=== PATIENT | female | born 1940 | race Caucasian/White ===

== ENCOUNTER 2020-09-29 01:08 | Emergency (ER) | payer MEDICARE ==
[2020-09-29 01:14] VITALS: TEMP 97.5
--- NOTE | 2020-09-29 01:18 | ED ---
Chest Pain HPI - General Chief Complaint: Chest Pain Stated Complaint: chest/arm pain Time Seen by Provider: 09/29/20 01:10 Source: patient, EMS Mode of arrival: EMS Limitations: no limitations - History of Present Illness Initial Comments: Patient is a 80-year-old female presents emergency department with reported left arm pain. Patient states the pain started approximately 10 days ago. She describes it as a throbbing sensation which radiates from the hand all the way up to her neck. Patient denies any provocative factors. States that it hurts worse at night when she goes to bed. Denies any numbness or tingling in her fingers. No paralysis. Patient denies neck stiffness. No history of DVT. Denies any fevers or chills. No overlying skin changes. The pain does not extend into her chest. 10 days ago she did call EMS who came to the house and did an EKG. She refused transfer at that time. States that she decided to come in to the emergency department tonight because the pain kept her from sleeping. Denies any associated nausea or vomiting. No pain into her back. Denies any pain into her abdomen or lower extremities. No other alleviating, precipitating or modifying factors - Related Data Home Medications Medication Instructions Recorded Confirmed Baclofen [Lioresal] 10 mg PO TID 06/17/14 06/17/14 Ciprofloxacin HCl [Cipro] 500 mg PO Q12HR 06/17/14 06/17/14 Ibuprofen [Motrin] 600 mg PO Q8HR PRN 06/17/14 06/17/14 Tamsulosin [Flomax] 0.4 mg PO DAILY 06/17/14 06/17/14 Allergies Allergy/AdvReac Type Severity Reaction Status Date / Time Penicillins Allergy Swelling Verified 06/17/14 07:33 Review of Systems ROS Statement: Those systems with pertinent positive or pertinent negative responses have been documented in the HPI. ROS Other: All systems not noted in ROS Statement are negative. EKG Findings - EKG Comments: EKG Findings:: EKG done signs normal sinus rhythm with a ventricular rate of 83. IA interval 134. QRS 72. QTC of 392. No acute ST segment elevations or depressions Past Medical History Additional Past Medical History / Comment(s): kidney stones History of Any Multi-Drug Resistant Organisms: None Reported Past Surgical History: Appendectomy, Orthopedic Surgery Additional Past Surgical History / Comment(s): Lt leg fusion Past Psychological History: No Psychological Hx Reported Smoking Status: Never smoker Past Alcohol Use History: Occasional Past Drug Use History: None Reported General Exam Limitations: no limitations Course Vital Signs 09/29/20 09/29/20 09/29/20 01:11 02:16 04:26 Temperature 97.5 F L Pulse Rate 95 90 80 Respiratory 18 16 17 Rate Blood Pressure 132/66 147/80 157/80 O2 Sat by Pulse 99 100 97 Oximetry Chest Pain MDM - MDM Upon arrival patient is placed into room 20. A thorough history and physical exam was performed. 12-lead EKG was performed. Laboratory studies were conducted. Patient went for a chest x-ray and a CT of her brain and cervical spine. Patient was given a muscle relaxer. She is reevaluated and reports that she still has some throbbing sensation to her left arm. I did recommend admission for cardiology consultation and possible orthopedic evaluation. Lalo braga refused. She is of sound mind and capable of making her own decisions. States that she would prefer to go home and follow up with Dr. Kirk in office or her symptoms. I did notify her of the risks of leaving for which she understood and still wanted to go home. Family is at bedside and agrees with her decision. I asked the patient she has any new or worsening symptoms return to emergency room. Patient agreed to this and she was discharged home stable condition Disposition Clinical Impression: Arm pain Disposition: HOME SELF-CARE Condition: Stable Instructions (If sedation given, give patient instructions): Arm Pain (ED) Additional Instructions: Please follow-up with your primary care doctor and with Dr. Kirk. Return to the emergency room for any new or worsening symptoms. Place warm compresses to the site Is patient prescribed a controlled substance at d/c from ED?: No Referrals: Keron Littlejohn MD [Primary Care Provider] - 1-2 days Hoa Kirk DO [Doctor of Osteopathic Medicine] - 1-2 days Time of Disposition: 04:14
--- NOTE | 2020-09-29 02:01 | XR ---
EXAM: XR Chest, 2 Views CLINICAL HISTORY: ITS.REASON XR Reason: Chest Pain TECHNIQUE: Frontal and lateral views of the chest. COMPARISON: No relevant prior studies available. FINDINGS: Lungs: The lungs are hyperinflated with prominent coarse interstitial markings throughout both lungs. No focal infiltrate or consolidation is seen. No pulmonary mass identified. Pleural space: Unremarkable. No pneumothorax. Heart: The cardiac silhouette is mildly enlarged. Mediastinum: Unremarkable. Bones/joints: Mild multilevel osteophytosis in the thoracic spine. Upper abdomen: No pneumoperitoneum under the diaphragm. IMPRESSION: Borderline mild cardiomegaly and mild emphysema. No pulmonary edema or acute focal infiltrate is identified. No pneumothorax or pleural effusion.
[2020-09-29 02:05] LABS: Basophils # (A) 0.1 k/uL (0-0.2); Basophils % (A) 1 %; Eosinophils # (A) 0.1 k/uL (0-0.7); Eosinophils % (A) 2 %; HCT 38.2 % (34.0-46.0); HGB 12.6 gm/dL (11.4-16.0); Lymphocytes % (A) 24 %; MCH 30.6 pg (25.0-35.0); MCHC 33.1 g/dL (31.0-37.0); MCV 92.4 fL (80.0-100.0); Mean Platelet Volume 7.2; Monocytes # (A) 0.2 k/uL (0-1.0); Monocytes % (A) 6 %; Neutrophils # (A) 2.8 k/uL (1.3-7.7); Neutrophils % (A) 65 %; Platelet Count 296 k/uL (150-450); RBC 4.14 m/uL (3.80-5.40); RDW 13.8 % (11.5-15.5); WBC 4.3 k/uL (3.8-10.6)
[2020-09-29] MEDS ORDERED: CYCLOBENZAPRINE 10 MG TAB PO STA (02:11)
[2020-09-29 02:14] LABS: Albumin 3.3 g/dL (3.5-5.0); Calcium 10.8 mg/dL (8.4-10.2); Potassium 4.5 mmol/L (3.5-5.1); Total Bilirubin 0.4 mg/dL (0.2-1.3); Total Protein 6.2 g/dL (6.3-8.2)
[2020-09-29 02:23] LABS: Partial Thromboplastin Time 25.9 sec (22.0-30.0); Prothrombin Time 10.2 sec (9.0-12.0)
--- NOTE | 2020-09-29 03:05 | CT ---
EXAM: CT Head Without Intravenous Contrast CLINICAL HISTORY: ITS.REASON CT Reason: arm pain TECHNIQUE: Axial computed tomography images of the head/brain without intravenous contrast. CTDI is 45.285 mGy and DLP is 985 mGy-cm. This CT exam was performed using one or more of the following dose reduction techniques: automated exposure control, adjustment of the mA and/or kV according to patient size, and/or use of iterative reconstruction technique. COMPARISON: No relevant prior studies available. FINDINGS: Brain: No hemorrhage. No acute cortical infarct. No mass effect or midline shift. Age-related changes. Ventricles: Unremarkable. Bones/joints: No acute fracture. Soft tissues: Unremarkable. Sinuses: Unremarkable as visualized. Mastoid air cells: Unremarkable as visualized. IMPRESSION: No acute intracranial process. EXAM: CT Cervical Spine Without Intravenous Contrast CLINICAL HISTORY: ITS.REASON CT Reason: arm pain TECHNIQUE: Axial computed tomography images of the cervical spine without intravenous contrast. CTDI is 11.485 mGy and DLP is 305.7 mGy-cm. This CT exam was performed using one or more of the following dose reduction techniques: automated exposure control, adjustment of the mA and/or kV according to patient size, and/or use of iterative reconstruction technique. COMPARISON: No relevant prior studies available. FINDINGS: Vertebrae: No acute fracture. Discs/spinal canal/neural foramina: Multilevel degenerative changes. Limited evaluation of the central canal due to artifact. Soft tissues: Unremarkable. Lung apices: Bilateral atelectasis/scarring or pneumonitis. Mediastinum: Small mediastinal lymph nodes. IMPRESSION: No acute fracture.
[2020-09-29] MEDS ORDERED: CYCLOBENZAPRINE 10MG STARTER 3 TAB BTL PO STA (04:12)
[2020-09-29 04:28] VITALS: BP 157/80; PULSE 80; RESP 17
== END 2020-09-29 04:28 | disposition home or self-care (01) ==
LOC: EC 01:08
DX: M79.602 Pain in left arm (principal); Z79.899 Other long term (current) drug therapy; Z88.0 Allergy status to penicillin
CPT/HCPCS: 36415; 70450; 71046; 72125; 80053; 83690; 83735; 83880; 84484; 85025; 85610; 85730; 93005; 99285

== ENCOUNTER → 2020-10-15 | Outpatient (CLI) | payer MEDICARE ==
--- NOTE | 2020-10-15 11:20 | P.PAINCN ---
History of Present Illness - Reason for Consult Consult date: 10/15/20 - History of Present Illness This is 80 years old female with the 4 weeks history of severe neck pain started without any initiating event used to be in the neck with radiation to the left upper extremity, and counting localized in the neck area with radiation to both upper extremity associated with numbness and tingling sensation, she feels some weakness in her upper extremity, she denies any fever or night sweats she denies any change in the bowel movement or urination, she denies any initiating event, the pain is constant and increases with any activity, interfere with the quality of life Past Medical History Additional Past Medical History / Comment(s): kidney stones History of Any Multi-Drug Resistant Organisms: None Reported Past Surgical History: Appendectomy, Orthopedic Surgery Additional Past Surgical History / Comment(s): Lt leg fusion Past Psychological History: No Psychological Hx Reported Smoking Status: Never smoker Past Alcohol Use History: Occasional Past Drug Use History: None Reported Medications and Allergies Home Medications Medication Instructions Recorded Confirmed Type Baclofen [Lioresal] 10 mg PO TID 06/17/14 06/17/14 History Ciprofloxacin HCl [Cipro] 500 mg PO Q12HR 06/17/14 06/17/14 History Ibuprofen [Motrin] 600 mg PO Q8HR PRN 06/17/14 06/17/14 History Tamsulosin [Flomax] 0.4 mg PO DAILY 06/17/14 06/17/14 History Allergies Allergy/AdvReac Type Severity Reaction Status Date / Time Penicillins Allergy Swelling Verified 06/17/14 07:33 Physical Exam Physical Examinations : -Constitutiona : Cooperative , not in acute distress . -HEENT : nech : supple , no Lymphadenopathy , normal thyroid size . : eyes : no ptosis , no icterus, no photophobia . - neurologic : Cranial nerve II to XII intact , no focal neurological deffecit . -psychatric : alert , oriented X 3 , appropriate affect , intact judgment and insight . -Lymphatic : no Lymphadenopathy . - musculoskeltal : Cervical Spine motor stregnth in the deltoid and biceps, normal right side , normal Left side motor stregnth biceps and the wrist extensors 4/5 right side ,4/5 left side . motor stregnth in the triceps muscle . normal Right side , normal Left side deep tendon reflexes normal at the biceps , normal at Brachioradialis , normal at triceps. cervical facet loading test= Positive Bilaterally Spurling test= positive bilaterally. Neck distraction test= positive bilaterally. Fam sign= positive bilaterally. Lumber spine moter stegnth lower extremities ,thigh and legs 4- 5/5 Right side , 5/5 Left side Results Comments: Computed tomography scan of the cervical spine = multileveled degenerative disc disease Assessment and Plan Plan: Assessment and plan=1-cervical radiculopathy. 2-cervical degenerative disc disease. 3-cervical spondylosis. Description could benefit from cervical epidural steroid injections under fluoroscopy guidance at C7-T1 Time with Patient: Greater than 30 PQRS Measure Charge Sheet Measure #130: Documentation of Current Meds in Medical Chart: Patient's medications documented in chart Measure #226: Tobacco Use: Screen & Cessation Intervention: Pt not a tobacco user Measure #111: Pneumonia Vaccination: Pneumococcal vaccine administered or previously received Measure #47: Advance Care Plan: Advance care planning discussed & documented, pt chose/unable to give Measure #412: Opioid Treatment Agreement: No documentation of signed opioid treatment agreement Measure #408: Opioid Therapy Follow-up Evaluation: Patient had NO f/u eval minimum every 3 months during opioid therapy Measure #317: Preventitive Care & Scrn High Bld Press & F/U: Pre-hypertensive or hypertensive BP documented, pt will f/u with PCP Measure #128: Body Mass Index (BMI) Screening & Follow-up: BMI documented BELOW normal parameters - f/u documented Measure #131: Pain Assessment & Follow-up: Pain positive & plan documented, Follow-up scheduled Measure #431: Unhealthy Alcohol Use Preventative Care & Scrn: Patient not identified as an unhealthy alcohol user PQRS Narrative: Smoking Status Never smoker Home Medications: Ambulatory Orders Baclofen [Lioresal] 10 mg PO TID 06/17/14 Ciprofloxacin HCl [Cipro] 500 mg PO Q12HR 06/17/14 Ibuprofen [Motrin] 600 mg PO Q8HR PRN 06/17/14 Tamsulosin [Flomax] 0.4 mg PO DAILY 06/17/14
[2020-10-15 11:36] VITALS: BP 165/77; PULSE 102; RESP 16; TEMP 97.6
== END | disposition home or self-care (01) ==
LOC: PNWHC3 10:03
PROVIDERS: ATTEND Specialist
DX: M50.10 Cervical disc disorder with radiculopathy, unspecified cervical region (principal); M47.22 Other spondylosis with radiculopathy, cervical region; Z88.0 Allergy status to penicillin; Z79.891 Long term (current) use of opiate analgesic; Z79.899 Other long term (current) drug therapy
CPT/HCPCS: 99211

== ENCOUNTER 2020-10-21 08:43 | Day surgery (SDC) | payer MEDICARE ==
[2020-10-21] MEDS ORDERED: LACTATED RINGERS 1,000 ML IV SCH (09:00)
[2020-10-21 09:05] VITALS: TEMP 97.4
[2020-10-21] MEDS ORDERED: LIDOCAINE 1% (10MG/ML) FOR IV START INTRADERMA ONE (09:08)
[2020-10-21] MEDS ORDERED: IOPAMIDOL M200 10 ML VIAL ONE (09:10)
[2020-10-21] MEDS ORDERED: MIDAZOLAM 2 MG/2 ML VIAL ONE (09:10)
[2020-10-21] MEDS ORDERED: fentaNYL (PF) 50 MCG/ML 2 ML AMP ONE (09:10)
[2020-10-21] MEDS ORDERED: DEXAMETHASONE SOD PHOSPHATE 10 MG/ML 1 ML VIAL ONE (09:10)
--- NOTE | 2020-10-21 09:15 | P.PCN ---
Date of Procedure: 10/21/20 Description of Procedure: PROCEDURE 1. Cervical epidural steroid injection under fluoroscopic guidance, C7-T1 2. Cervical epidurogram. PREOPERATIVE DIAGNOSIS: Cervical radiculopathy POSTOPERATIVE DIAGNOSIS: Cervical radiculopathy Imaging: Fluoroscopy was used, images where saved to the medical record ANESTHESIA: Local anesthesia with 1% lidocaine and (IV conscious sedation ) PROCEDURE DESCRIPTION / TECHNIQUE: The patient was seen and identified in the preoperative area. Risks, benefits, and alternatives were discused with the patient and the patient has consented to the procedure. Risks of the procedure include potential for bleeding, infection, nerve damage, and incomplete pain relief were discussed with the patient. All questions were answered for the patient Patient was taken to the OR and time out was completed. The patient was placed in the prone position on the procedure table. A pillow was placed under the patients chest to increase the cervical interlaminar space. The cervical area was prepped and draped in the usual sterile fashion. Vital signs were closely monitored during the procedure. Using anterior-posterior fluoroscopy, the C7-T1 interlaminar space was identified and the skin over this site was marked and then infiltrated with 1% lidocaine subcutaneously. Subsequently, a 20-gauge 3-1/2-inch Tuohy epidural needle was inserted and advanced toward the epidural space by means of the [id number] technique and guided by AP and lateral fluoroscopy. The correct needle position in the epidural space was verified with the injection of 1 mL of the water soluble contrast dye [id number]-180 and observing an excellent epidurogram with the epidural spread of the dye, after negative aspiration for blood and CSF and in the absence of paresthesias. Again after negative aspiration, a mixture containing 10 mg Dexamethasone and 2 ml of preservative- free normal saline injected and a washout of epidurogram was seen. Needle was withdrawn intact, skin was cleansed, and bandages were applied. Complications: none. Disposition: patient was placed in supine position and transferred to the recovery room area in stable condition and there was no evidence of upper or lower extremity motor or sensory deficit after the procedure patient was discharged from recovery room after discharge criteria met and home discharge instructions was given by the staff and patient will follow with the pain as directed.
[2020-10-21] MEDS ORDERED: IV FLUID CONTINUATION 400 ML IV ONE (09:30)
[2020-10-21 09:39] VITALS: RESP 20
[2020-10-21 09:48] VITALS: BP 142/69; PULSE 95
--- NOTE | 2020-10-21 10:02 | FL ---
EXAMINATION TYPE: FL guided pain mgmt statistic DATE OF EXAM: 10/21/2020 HISTORY: Fluoroscopy time 4 seconds of fluoroscopy provided. IMPRESSION: 1. Fluoroscopy time.
== END 2020-10-21 10:11 | disposition home or self-care (01) ==
LOC: ORPAIN 08:43
PROVIDERS: ATTEND Hospitalist
DX: M54.12 Radiculopathy, cervical region (principal)
CPT/HCPCS: 62321

== ENCOUNTER 2020-10-25 15:31 | Emergency (ER) | payer MEDICARE ==
[2020-10-25 15:44] VITALS: BP 146/63; PULSE 111; RESP 20; TEMP 98.5
[2020-10-25] MEDS ORDERED: MORPHINE SULFATE 4 MG/ML SYRINGE IM STA (16:07)
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
--- NOTE | 2020-10-25 18:10 | ED ---
General Adult HPI - General Chief complaint: Neck Pain/Injury Stated complaint: Back Pain Time Seen by Provider: 10/25/20 15:54 Source: patient, family, RN notes reviewed, old records reviewed Mode of arrival: wheelchair Limitations: no limitations - History of Present Illness Initial comments: 80-year-old female patient to ED for evaluation of neck pain. This pain is chronic patient had a steroid injection and her pain got better transiently however the pain is now back to where it was before. Reading down both her arms. Denies any new weakness. Denies any paresthesias. Denies any headaches or any neck stiffness. Denies any fevers. Denies any falls or trauma. Systemic: Pt denies fatigue, fever/chills, rash. Pt denies weakness, night sweats, weight loss. Neuro: Pt denies headache, visual disturbances, syncope or pre-syncope. HEENT: Pt denies ocular discharge or irritation, otalgia, rhinorrhea, pharyngitis or notable lymphadenopathy. Cardiopulmonary: Pt denies chest pain, SOB, heart palpitations, dyspnea on exertion. Abdominal/GI: Pt denies abdominal pain, n/v/d. : Pt denies dysuria, burning w/ urination, frequency/urgency. Denies new onset urinary or bowel incontinence. Neuro: Pt denies new onset weakness, paresthesias. - Related Data Home Medications Medication Instructions Recorded Confirmed Ibuprofen [Motrin] 600 mg PO Q8HR PRN 06/17/14 10/21/20 Tamsulosin [Flomax] 0.4 mg PO DAILY 06/17/14 10/21/20 Previous Rx's Medication Instructions Recorded Hydrocodone/Acetaminophen [Arrington 1 each PO Q6HR PRN #12 tab 10/25/20 5-325] Allergies Allergy/AdvReac Type Severity Reaction Status Date / Time Penicillins Allergy Swelling Verified 10/25/20 15:44 Review of Systems ROS Statement: Those systems with pertinent positive or pertinent negative responses have been documented in the HPI. ROS Other: All systems not noted in ROS Statement are negative. Past Medical History Additional Past Medical History / Comment(s): kidney stones, chronic neck pain History of Any Multi-Drug Resistant Organisms: None Reported Past Surgical History: Appendectomy, Orthopedic Surgery Additional Past Surgical History / Comment(s): Lt leg fusion Past Psychological History: No Psychological Hx Reported Smoking Status: Never smoker Past Alcohol Use History: Occasional Past Drug Use History: None Reported General Exam - General Exam Comments Initial Comments: Constitutional: NAD, AOX3, Pt has pleasant affect. HEENT: NC/AT, trachea midline, neck supple, no lymphadenopathy. External ears appear normal, without discharge. Mucous membranes moist. Eyes PERRLA, EOM intact. There is no scleral icterus. No pallor noted. Cardiopulmonary: RRR, no murmurs, rubs or gallops, no JVD noted. Lungs CTAB in anterior and posterior doll. No peripheral edema. Abdominal exam: Abdomen soft and non-distended. Abdomen non-tender to palpation in all 4 quadrants. Bowel sounds active in LLQ. No hepatosplenomegaly. No ecchymosis Neuro: CN II-XII grossly intact. No nuchal rigidity. No raccon eyes, no acuna sign, no hemotympanum. No cervical spinal tenderness. MSK: Strength and sensation intact in upper extremities. Distal pulses are intact and equal. Range of motion is at baseline for patient. Limitations: no limitations Course Vital Signs 10/25/20 15:41 Temperature 98.5 F Pulse Rate 111 H Respiratory 20 Rate Blood Pressure 146/63 O2 Sat by Pulse 96 Oximetry Medical Decision Making - Medical Decision Making 80-year-old female patient ED for chronic neck pain. Vital signs stable, afebrile. Physical exam is slight intact strength and sensation. CT cervical spine without contrast displayed spondylotic changes in the lower spine no fracture no change. Recent exam. Patient is feeling much improved analgesia. She'll be discharged with Arrington and close patient follow-up with her primary care provider as well as pain management. Case discussed with Dr. Pedroza. Disposition Clinical Impression: Neck pain Disposition: HOME SELF-CARE Condition: Stable Instructions (If sedation given, give patient instructions): Cervical Sprain (ED) Additional Instructions: Follow up with PCP and pain management tomorrow. You may again begin taking norco tomorrow as needed. Return to ED with any worsening symptoms. Prescriptions: Hydrocodone/Acetaminophen [Arrington 5-325] 1 each PO Q6HR PRN #12 tab PRN Reason: Pain Is patient prescribed a controlled substance at d/c from ED?: No Referrals: Keron Littlejohn MD [Primary Care Provider] - 1-2 days
[2020-10-25] MEDS ORDERED: HYDROcodone/APAP 5-325MG 1 EACH TAB PO STA (18:11)
== END 2020-10-25 18:38 | disposition home or self-care (01) ==
LOC: EC 15:31
DX: M54.2 Cervicalgia (principal); Z88.0 Allergy status to penicillin
CPT/HCPCS: 72125; 99284; 96372; J2270

== ENCOUNTER → 2020-11-03 | Outpatient (CLI) | payer MEDICARE ==
[2020-11-03 10:53] VITALS: BP 147/78; PULSE 96; RESP 20; TEMP 97.7
--- NOTE | 2020-11-03 11:14 | P.PN ---
Subjective Progress Note Date: 11/03/20 This is a 80-year-old lady with history of neck pain with radiation to both arms to the hands with numbness and tingling and swelling in both hands. The patient received cervical epidural steroid injection one time which gave her pain relief for only 2 days after the injection. Her pain is back to its baseline now. She denies any history of diabetes or any treatment with anticoagulants. Patient denies new-onset weakness, bowel/bladder incontinence, or any other signs or symptoms of cauda equina syndrome. There are no signs of acute intoxication, and no indications of medication diversion or overuse. In addition to above, 13-point review of systems is also negative for chest pain, shortness of breath, changes in vision, changes in hearing, new onset weakness, abdominal pain, diarrhea, extreme fatigue, malaise, fever, skin changes, homicidal or suicidal ideation, or bowel or bladder incontinence. Vital Signs: Reviewed in EMR Gen: AAOx3, NAD HEENT: PERRLA,hearing grossly normal Pulm: resp unlabored Neck: supple, trachea midline Neuro exam of the upper extremities: Decreased muscle strength to 4 out of 5 for hand manager building bilaterally, 3 out of 5 for deltoid abduction bilaterally and 4 out of 5 for ankle flexion and extension bilaterally. Normal deep tendon reflexes bilaterally but absent triceps reflex bilaterally. Straight leg raising test: Glenn's test: Range of motion of the lumbar spine: Facet loading test: Tenderness in the paravertebral musculature: Neuro: CN II-XII grossly intact, Imaging: Reviewed in EMR/chart Assessment: Cervical radiculopathy Cervical spondylosis without myelopathy Plan: 1. Explanation: Opioid and psychological risk scores were reviewed. Diagnoses, prognoses, and multiple treatment options including but not limited to physical therapy, interventional therapies, adjuvant medical therapies, narcotic medication therapies, and surgery were discussed with the patient and all questions were answered to the patient's satisfaction. 2. Opioid agreement: Signed with the patient and the patient is warned not to use opioids while driving or before driving and not to combine opioids with benzodiazepines or alcohol. 3. Counseling: The patient was counseled extensively on SMOKING CESSATION, BODY MASS INDEX, EXERCISE. Specifically, the patient was instructed regarding the importance of smoking cessation, obesity, and exercise in the context of both chronic pain and overall health. 4. Procedures: Scheduled for the second cervical epidural steroid injection under fluoroscopic guidance 5. Consultations: None 6. Investigations: The patient may need an EMG on the upper extremities in the future if her pain does not improve 7. Medications: Current started on Neurontin 100 mg and gradually increase the dose up to 300 mg daily at bedtime, #45 pills with no refills. In the future we might need to escalate the dose higher if the patient tolerates the medicine. 8. Disposition: Return to the above-mentioned procedure as soon as possible 9. Maps were reviewed and were appropriate. Objective - Vital Signs Vital signs: Vital Signs Temp 97.7 F 11/03/20 10:47 Pulse 96 11/03/20 10:47 Resp 20 11/03/20 10:47 BP 147/78 11/03/20 10:47 Pulse Ox 98 11/03/20 10:47
== END | disposition home or self-care (01) ==
LOC: PNWHC3 10:36
PROVIDERS: ATTEND Anesthesiology
DX: M47.22 Other spondylosis with radiculopathy, cervical region (principal); Z79.899 Other long term (current) drug therapy
CPT/HCPCS: 99211

== ENCOUNTER 2020-11-11 12:14 | Day surgery (SDC) | payer MEDICARE ==
[2020-11-07 14:49] VITALS: BMI 25.2
[~2020-11-11 12:14] MED LIST: LACTATED RINGERS 1,000 ML IV SCH
[2020-11-11 12:44] VITALS: TEMP 98.4
[2020-11-11] MEDS ORDERED: IOPAMIDOL M200 10 ML VIAL ONE (13:01)
[2020-11-11] MEDS ORDERED: fentaNYL (PF) 50 MCG/ML 2 ML AMP ONE (13:01)
[2020-11-11] MEDS ORDERED: methylPREDNISolone ACETATE 40 MG/ML 1 ML VIAL ONE (13:01)
[2020-11-11] MEDS ORDERED: DEXAMETHASONE SOD PHOSPHATE 10 MG/ML 1 ML VIAL ONE (13:01)
[2020-11-11] MEDS ORDERED: MIDAZOLAM 2 MG/2 ML VIAL ONE (13:01)
--- NOTE | 2020-11-11 13:19 | P.PCN ---
Date of Procedure: 11/11/20 Procedure(s) Performed: . PROCEDURE 1. Cervical epidural steroid injection under fluoroscopic guidance, C7-T1 (fluoroscopy images available in the radiology department ) 2. Cervical epidurogram. PREOPERATIVE DIAGNOSIS: 1- Cervical Degenerative Disc Diseases 2- Cervical radiculopathy. POSTOPERATIVE DIAGNOSIS: : 1- Cervical Degenerative Disc Diseases , 2- Cervical radiculopathy. ANESTHESIA: Local anesthesia with lidocaine 1 % , and moderate sedation, with Versed 1mg and Fentanyl 50 mcg. EBL 0 PROCEDURE INDICATION: The patient with neck pain and radiculitis unresponsive to conservative treatment consents for procedure. PROCEDURE DESCRIPTION / TECHNIQUE: The patient was seen and identified in the preoperative area. Risks, benefits, complications, including but not limited to infections ,bleeding , allergic reactions to the medications ,and not complete pain releife, and alternatives were discussed with the patient, the patient agreed to proceed with the procedure and signed the consent. Patient was taken to the OR and time out was completed. The patient was placed in the prone position on the procedure table. A pillow was placed under the patients chest to increase the cervical interlaminar space. The cervical area was prepped and draped in the usual sterile fashion. Vi ha signs were closely monitored during the procedure. Conscious sedation was used during the procedure to decrease patients anxiety. Using anterior-posterior fluoroscopy, the C7-T1 interlaminar space was identified and the skin over this site was marked and then infiltrated with 1% lidocaine subcutaneously. Subsequently, a 20-gauge 3-1/2-inch Tuohy epidural needle was inserted and advanced toward the epidural space by means of the ``hanging-drop technique and guided by AP and lateral fluoroscopy. The correct needle position in the epidural space was verified with the injection of 2 mL of the water soluble contrast dye Isovue-200 and observing an excellent epidurogram with the epidural spread of the dye, after negative aspiration for blood and CSF and in the absence of paresthesias. Again after negative aspiration, mixture containing 15 mg Dexamethasone and 2 ml of preservative- free normal saline injected and a washout of epidurogram was seen. Needle was withdrawn intact, skin was cleansed, and bandages were applied. Complications= none. Disposition= patient was placed in supine position and transferred to the recovery room area in stable condition and there was no evidence of upper or lower extremity motor or sensory deficit after the procedure patient was discharged from recovery room after discharge criteria met and home discharge instructions was given by the staff and patient will follow with the pain clinic in 2-4 weeks
[2020-11-11] MEDS ORDERED: IV FLUID CONTINUATION 700 ML IV ONE (13:22)
[2020-11-11 13:26] VITALS: RESP 16
[2020-11-11] MEDS ORDERED: hydrALAZINE HCL 20 MG/ML 1 ML VIAL ONE (13:44)
[2020-11-11] MEDS ORDERED: hydrALAZINE HCL 20 MG/ML 1 ML VIAL IVP ONE (13:48)
[2020-11-11 13:50] VITALS: PULSE 90
[2020-11-11 14:02] VITALS: BP 160/77
--- NOTE | 2020-11-11 14:08 | FL ---
Fluoroscopy HISTORY: Pain 2 seconds fluoroscopy time supplied to the referring clinician. 1 intraoperative C-arm images docume nt the procedure. See dictated report from anesthesia.
== END 2020-11-11 14:13 | disposition home or self-care (01) ==
LOC: ORPAIN 12:14
PROVIDERS: ATTEND Specialist
DX: M50.10 Cervical disc disorder with radiculopathy, unspecified cervical region (principal); Z88.0 Allergy status to penicillin
CPT/HCPCS: 62321; J2250; J0360; J1100; J3010; Q9966; 99152

== ENCOUNTER → 2020-12-01 | Outpatient (CLI) | payer MEDICARE ==
[2020-12-01 13:50] VITALS: BP 169/70; PULSE 100; RESP 18; TEMP 97.3
--- NOTE | 2020-12-01 14:24 | P.PN ---
Subjective Progress Note Date: 12/01/20 This is a follow-up visit for this 80 years old female with a chronic history of severe neck pain she is diagnosed with cervical radiculopathy cervical degenerative disc disease, and cervical spondylosis with cervical facet arthropathy, previously well have done cervical epidural steroid injections 2, she continued to have severe neck pain with radiation to the upper extremity associated with numbness and tingling sensation, the pain is constant and increases with any activity or neck movement Objective - Vital Signs Vital signs: Vital Signs Temp 97.3 F L 12/01/20 13:45 Pulse 100 12/01/20 13:45 Resp 18 12/01/20 13:45 BP 169/70 12/01/20 13:45 Pulse Ox 98 12/01/20 13:45 - Exam -Constitutiona : Cooperative , not in acute distress . -HEENT : nech : supple , no Lymphadenopathy , normal thyroid size . : eyes : no ptosis , no icterus, no photophobia . - neurologic : Cranial nerve II to XII intact , no focal neurological deffecit . -psychatric : alert , oriented X 3 , appropriate affect , intact judgment and insight . -Lymphatic : no Lymphadenopathy . - musculoskeltal : Cervical Spine motor stregnth in the deltoid and biceps, normal right side , normal Left side motor stregnth biceps and the wrist extensors 4/5 right side ,4/5 left side . motor stregnth in the triceps muscle . normal Right side , normal Left side deep tendon reflexes normal at the biceps , normal at Brachioradialis , normal at triceps. cervical facet loading test= Positive Bilaterally Spurling test= positive bilaterally. Neck distraction test= positive bilaterally. Fam sign= positive bilaterally. Lumber spine moter stegnth lower extremities ,thigh and legs 4- 5/5 Right side , 5/5 Left side Result= Computed tomography scan of the cervical spine = multileveled degenerative disc disease Assessment and Plan Plan: Assessment and plan=1-cervical radiculopathy. 2-cervical degenerative disc disease. 3-cervical spondylosis. She could benefit from cervical epidural steroid injections under fluoroscopy guidance at C7-T1 Could benefit from increasing the dose of Neurontin to Neurontin 100 mg 2 tablet twice a day dispense 120 with 2 refills Time with Patient: Greater than 30 PQRS Measure Charge Sheet Measure #130: Documentation of Current Meds in Medical Chart: Patient's medications documented in chart Measure #226: Tobacco Use: Screen & Cessation Intervention: Pt not a tobacco user Measure #111: Pneumonia Vaccination: Pneumococcal vaccine administered or previously received Measure #47: Advance Care Plan: Advance care planning discussed & documented, pt chose/unable to give Measure #412: Opioid Treatment Agreement: No documentation of signed opioid treatment agreement Measure #408: Opioid Therapy Follow-up Evaluation: Patient had NO f/u eval minimum every 3 months during opioid therapy Measure #317: Preventitive Care & Scrn High Bld Press & F/U: Pre-hypertensive or hypertensive BP documented, pt will f/u with PCP Measure #128: Body Mass Index (BMI) Screening & Follow-up: BMI documented ,within the normal parameters - f/u documented Measure #131: Pain Assessment & Follow-up: Pain positive & plan documented, Follow-up scheduled Measure #431: Unhealthy Alcohol Use Preventative Care & Scrn: Patient not identi fied as an unhealthy alcohol user Time with Patient: Less than 30
== END | disposition home or self-care (01) ==
LOC: PNWHC3 13:33
PROVIDERS: ATTEND Specialist
DX: M50.10 Cervical disc disorder with radiculopathy, unspecified cervical region (principal); M47.22 Other spondylosis with radiculopathy, cervical region
CPT/HCPCS: 99211

== ENCOUNTER 2020-12-25 08:32 | Day surgery (SDC) | payer MEDICARE ==
[2020-12-15 08:39] VITALS: BMI 26.1
[2020-12-25 08:57] VITALS: RESP 16; TEMP 98.3
[2020-12-25] MEDS ORDERED: MIDAZOLAM 2 MG/2 ML VIAL ONE (08:57)
[2020-12-25] MEDS ORDERED: DEXAMETHASONE SOD PHOSPHATE 10 MG/ML 1 ML VIAL ONE (08:57)
[2020-12-25] MEDS ORDERED: IOPAMIDOL M200 10 ML VIAL ONE (08:57)
[2020-12-25] MEDS ORDERED: fentaNYL (PF) 50 MCG/ML 2 ML AMP ONE (08:57)
--- NOTE | 2020-12-25 09:08 | P.PCN ---
Date of Procedure: 12/25/20 Description of Procedure: PROCEDURE 1. Cervical epidural steroid injection under fluoroscopic guidance, C7-T1 2. Cervical epidurogram. PREOPERATIVE DIAGNOSIS: Cervical radiculopathy POSTOPERATIVE DIAGNOSIS: Cervical radiculopathy Imaging: Fluoroscopy was used, images where saved to the medical record ANESTHESIA: Local anesthesia with 1% lidocaine and (IV conscious sedation ) PROCEDURE DESCRIPTION / TECHNIQUE: The patient was seen and identified in the preoperative area. Risks, benefits, and alternatives were discused with the patient and the patient has consented to the procedure. Risks of the procedure include potential for bleeding, infection, nerve damage, and incomplete pain relief were discussed with the patient. All questions were answered for the patient Patient was taken to the OR and time out was completed. The patient was placed in the prone position on the procedure table. A pillow was placed under the patients chest to increase the cervical interlaminar space. The cervical area was prepped and draped in the usual sterile fashion. Vital signs were closely monitored during the procedure. Using anterior-posterior fluoroscopy, the C7-T1 interlaminar space was identified and the skin over this site was marked and then infiltrated with 1% lidocaine subcutaneously. Subsequently, a 20-gauge 3-1/2-inch Tuohy epidural needle was inserted and advanced toward the epidural space by means of the [id number]-[id number] technique and guided by AP and lateral fluoroscopy. The correct needle position in the epidural space was verified with the injection of 1 mL of the water soluble contrast dye Isovue-180 and observing an excellent epidurogram with the epidural spread of the dye, after negative aspiration for blood and CSF and in the absence of paresthesias. Again after negative aspiration, a mixture containing 10 mg Dexamethasone and 2 ml of preservative- free normal saline injected and a washout of epidurogram was seen. Needle was withdrawn intact, skin was cleansed, and bandages were applied. Complications: none. Disposition: patient was placed in supine position and transferred to the recovery room area in stable condition and there was no evidence of upper or lower extremity motor or sensory deficit after the procedure patient was discharged from recovery room after discharge criteria met and home discharge instructions was given by the staff and patient will follow with the pain as directed.
[2020-12-25] MEDS ORDERED: ONDANSETRON 4 MG/2 ML VIAL IVP ONE (09:16)
[2020-12-25] MEDS ORDERED: ONDANSETRON 4 MG/2 ML VIAL ONE (09:16)
[2020-12-25] MEDS ORDERED: IV FLUID CONTINUATION 1,000 ML IV ONE (09:19)
[2020-12-25 09:36] VITALS: BP 154/70; PULSE 78
--- NOTE | 2020-12-25 10:01 | FL ---
EXAMINATION TYPE: FL guided pain mgmt statistic DATE OF EXAM: 12/25/2020 HISTORY: Fluoroscopy time 4 seconds of fluoroscopy provided. IMPRESSION: 1. Fluoroscopy time.
== END 2020-12-25 09:56 | disposition home or self-care (01) ==
LOC: ORPAIN 08:32
PROVIDERS: ATTEND Hospitalist
DX: M54.12 Radiculopathy, cervical region (principal); Z88.0 Allergy status to penicillin
CPT/HCPCS: 62321; J2250; J1100; J2405; J3010; Q9966

== ENCOUNTER 2021-01-06 09:21 | Emergency (ER) | payer MEDICARE ==
--- NOTE | 2021-01-06 09:53 | ED ---
General Adult HPI - General Chief complaint: Chest Pain Stated complaint: chest pain Time Seen by Provider: 01/06/21 09:27 Source: patient, EMS, RN notes reviewed Mode of arrival: EMS Limitations: no limitations - History of Present Illness Initial comments: 80-year-old female with a past medical history of kidney stones, neck pain, thyroid disorder since to the emergency room for a chief complaint of leg swelling. Patient reports that she has had swelling of her legs for about 2 weeks now. Patient states she has chronic knee pain and saw her orthopedic surgeon who recommended she try compression socks. States that she has been unable to get these on because it is difficult. Patient states that she has not had any shortness of breath. No orthopnea. Patient has had some left-sided chest pain for a few weeks however states it only hurts when she presses on the area below her left breast. Denies any pain on exertion or rest except when pr essing. Patient denies any history of heart failure. Does not take a diuretic. Patient has no other complaints at this time including shortness of breath, abdominal pain, nausea or vomiting, headache, or visual changes. - Related Data Home Medications Medication Instructions Recorded Confirmed Levothyroxine Sodium [Synthroid] 50 mcg PO DAILY 10/29/20 01/06/21 Gabapentin [Neurontin] 200 mg PO BID 11/11/20 01/06/21 Aspirin EC [Ecotrin Low Dose] 81 mg PO DAILY PRN 01/06/21 01/06/21 Cholecalciferol [Vitamin D3 (25 25 mcg PO DAILY 01/06/21 01/06/21 Mcg = 1000 Iu)] Ibuprofen [Motrin] 800 mg PO TID PRN 01/06/21 01/06/21 Allergies Allergy/AdvReac Type Severity Reaction Status Date / Time Penicillins Allergy Swelling Verified 01/06/21 10:05 Review of Systems ROS Statement: Those systems with pertinent positive or pertinent negative responses have been documented in the HPI. ROS Other: All systems not noted in ROS Statement are negative. Past Medical History Past Medical History: Osteoarthritis (OA), Thyroid Disorder Additional Past Medical History / Comment(s): kidney stones, cervical pain, History of Any Multi-Drug Resistant Organisms: None Reported Past Surgical History: Appendectomy, Orthopedic Surgery Additional Past Surgical History / Comment(s): mult. surgeries left leg for shattered femur, PAIN CLINIC PROCEDURES Past Anesthesia/Blood Transfusion Reactions: Motion Sickness Past Psychological History: No Psychological Hx Reported Smoking Status: Never smoker Past Alcohol Use History: None Reported Past Drug Use History: None Reported - Past Family History Mother Family Medical History: No Reported History General Exam Limitations: no limitations General appearance: alert, in no apparent distress Head exam: Present: atraumatic, normocephalic, normal inspection Eye exam: Present: normal appearance, PERRL, EOMI. Absent: scleral icterus, conjunctival injection, periorbital swelling ENT exam: Present: normal exam, mucous membranes moist Neck exam: Present: normal inspection, full ROM. Absent: tenderness, meningismus, lymphadenopathy Respiratory exam: Present: normal lung sounds bilaterally, chest wall tenderness (Patient has left-sided anterior lateral chest wall tenderness that is reproducible to palpation. No ecchymosis or signs of infection in the area.). Absent: respiratory distress, wheezes, rales, rhonchi, stridor Cardiovascular Exam: Present: regular rate, normal rhythm, normal heart sounds. Absent: systolic murmur, diastolic murmur, rubs, gallop, clicks GI/Abdominal exam: Present: soft, normal bowel sounds. Absent: distended, tende rness, guarding, rebound, rigid Extremities exam: Present: normal capillary refill (Capillary refill less than 2 seconds, DP pulses 2+ lower extremities bilaterally), pedal edema (Patient is a 2+ pitting edema noted of the lower legs bilaterally.). Absent: tenderness (no calf Tenderness bilaterally), other (There is no erythema or signs of infection.) Neurological exam: Present: alert Course Vital Signs 01/06/21 01/06/21 01/06/21 09:25 09:30 10:00 Temperature 97.7 F Pulse Rate 95 89 87 Respiratory 18 12 18 Rate Blood Pressure 143/75 172/79 176/83 O2 Sat by Pulse 100 100 97 Oximetry 01/06/21 01/06/21 01/06/21 10:30 11:00 11:28 Temperature 97.9 F Pulse Rate 79 84 89 Respiratory 16 16 20 Rate Blood Pressure 149/136 170/83 167/88 O2 Sat by Pulse 98 98 97 Oximetry EKG Findings - EKG Comments: EKG Findings:: NSR, vent rate 89, pr int 162, QTc 411 Medical Decision Making - Medical Decision Making Vitals are stable. Patient is well appearing. Patient is complaining of swelling of the lower legs which has been ongoing for a few weeks now. She did see her orthopedic surgeon who recommended she use compression socks and elevate the legs. Patient has not been able to use compression socks and has been elevating the legs as much as possible. She does also complain of chest pain, very atypical in nature. Only hurts when she presses on the area at which point it is sharp. She does not have any pain on exertion or shortness of breath. Patient does have pitting edema noted to the bilateral lower extremities. DP pulses. Capillary refill less than 2 seconds. No evidence of infection such as redness bilaterally. No fevers or leukocytosis. Patient does have an appointment for this at 2:00 PM. At this time suspect edema is likely dependent in nature. She is stable for discharge home. She will continue to keep legs elevated and attend her appointment today. She'll return for any worsening symptoms. - Lab Data Result diagrams: 01/06/21 09:55 01/06/21 09:55 Lab Results 01/06/21 01/06/21 01/06/21 Range/Units 09:55 09:55 09:55 WBC 6.3 (3.8-10.6) k/uL RBC 3.89 (3.80-5.40) m/uL Hgb 11.3 L (11.4-16.0) gm/dL Hct 35.4 (34.0-46.0) % MCV 91.0 (80.0-100.0) fL MCH 29.0 (25.0-35.0) pg MCHC 31.8 (31.0-37.0) g/dL RDW 15.2 (11.5-15.5) % Plt Count 303 (150-450) k/uL MPV 8.2 Neutrophils % 75 % Lymphocytes % 16 % Monocytes % 5 % Eosinophils % 3 % Basophils % 0 % Neutrophils # 4.7 (1.3-7.7) k/uL Lymphocytes # 1.0 (1.0-4.8) k/uL Monocytes # 0.3 (0-1.0) k/uL Eosinophils # 0.2 (0-0.7) k/uL Basophils # 0.0 (0-0.2) k/uL Sodium 140 (137-145) mmol/L Potassium 4.2 (3.5-5.1) mmol/L Chloride 110 H (98-107) mmol/L Carbon Dioxide 22 (22-30) mmol/L Anion Gap 8 mmol/L BUN 12 (7-17) mg/dL Creatinine 0.74 (0.52-1.04) mg/dL Est GFR (CKD-EPI)AfAm 90 (>60 ml/min/1.73 sqM) Est GFR (CKD-EPI)NonAf 78 (>60 ml/min/1.73 sqM) Glucose 112 H (74-99) mg/dL Calcium 10.7 H (8.4-10.2) mg/dL Magnesium 1.9 (1.6-2.3) mg/dL Total Bilirubin 0.5 (0.2-1.3) mg/dL AST 15 (14-36) U/L ALT 11 (4-34) U/L Alkaline Phosphatase 87 (38-126) U/L Troponin I <0.012 (0.000-0.034) ng/mL NT-Pro-B Natriuret Pep pg/mL Total Protein 6.5 (6.3-8.2) g/dL Albumin 3.6 (3.5-5.0) g/dL 01/06/21 Range/Units 09:55 WBC (3.8-10.6) k/uL RBC (3.80-5.40) m/uL Hgb (11.4-16.0) gm/dL Hct (34.0-46.0) % MCV (80.0-100.0) fL MCH (25.0-35.0) pg MCHC (31.0-37.0) g/dL RDW (11.5-15.5) % Plt Count (150-450) k/uL MPV Neutrophils % % Lymphocytes % % Monocytes % % Eosinophils % % Basophils % % Neutrophils # (1.3-7.7) k/uL Lymphocytes # (1.0-4.8) k/uL Monocytes # (0-1.0) k/uL Eosinophils # (0-0.7) k/uL Basophils # (0-0.2) k/uL Sodium (137-145) mmol/L Potassium (3.5-5.1) mmol/L Chloride (98-107) mmol/L Carbon Dioxide (22-30) mmol/L Anion Gap mmol/L BUN (7-17) mg/dL Creatinine (0.52-1.04) mg/dL Est GFR (CKD-EPI)AfAm (>60 ml/min/1.73 sqM) Est GFR (CKD-EPI)NonAf (>60 ml/min/1.73 sqM) Glucose (74-99) mg/dL Calcium (8.4-10.2) mg/dL Magnesium (1.6-2.3) mg/dL Total Bilirubin (0.2-1.3) mg/dL AST (14-36) U/L ALT (4-34) U/L Alkaline Phosphatase (38-126) U/L Troponin I (0.000-0.034) ng/mL NT-Pro-B Natriuret Pep 682 pg/mL Total Protein (6.3-8.2) g/dL Albumin (3.5-5.0) g/dL Disposition Clinical Impression: Bilateral lower extremity edema Disposition: HOME SELF-CARE Condition: Good Instructions (If sedation given, give patient instructions): Leg Edema (ED) Additional Instructions: Please keep legs elevated when resting. Try to wrap legs or use compression stockings. Follow up with your doctor. Return to the emergency room for any worsening symptoms such as fevers, shortness of breath, or any other worsening symptoms Is patient prescribed a controlled substance at d/c from ED?: No Referrals: Keron Littlejohn MD [Primary Care Provider] - 1-2 days Time of Disposition: 12:01
[2021-01-06 10:27] LABS: Basophils % (A) 0 %; Eosinophils # (A) 0.2 k/uL (0-0.7); Eosinophils % (A) 3 %; HCT 35.4 % (34.0-46.0); HGB 11.3 gm/dL (11.4-16.0); Lymphocytes % (A) 16 %; MCHC 31.8 g/dL (31.0-37.0); Mean Platelet Volume 8.2; Monocytes # (A) 0.3 k/uL (0-1.0); Monocytes % (A) 5 %; Neutrophils # (A) 4.7 k/uL (1.3-7.7); Neutrophils % (A) 75 %; Platelet Count 303 k/uL (150-450); RBC 3.89 m/uL (3.80-5.40); RDW 15.2 % (11.5-15.5); WBC 6.3 k/uL (3.8-10.6)
--- NOTE | 2021-01-06 10:32 | XR ---
EXAMINATION TYPE: XR chest 2V DATE OF EXAM: 01/06/2021 COMPARISON: Prior chest x-ray 09/29/2020, CT 09/29/2020 HISTORY: Chest pain TECHNIQUE: Frontal and lateral views of the chest are obtained. FINDINGS: There is no focal air space opacity, pleural effusion, or pneumothorax seen. The cardiac silhouette size is within normal limits. The aorta is dense. The osseous structures are intact. Ther e are interstitial changes within the lungs. IMPRESSION: No acute cardiopulmonary process. Interstitial lung disease.
[2021-01-06 10:33] LABS: Albumin 3.6 g/dL (3.5-5.0); Calcium 10.7 mg/dL (8.4-10.2); Magnesium 1.9 mg/dL (1.6-2.3); Potassium 4.2 mmol/L (3.5-5.1); Total Bilirubin 0.5 mg/dL (0.2-1.3); Total Protein 6.5 g/dL (6.3-8.2)
[2021-01-06 11:29] VITALS: BP 167/88; PULSE 89; RESP 20; TEMP 97.9
== END 2021-01-06 12:40 | disposition home or self-care (01) ==
LOC: EC 09:21
DX: R60.0 Localized edema (principal); Z79.1 Long term (current) use of non-steroidal anti-inflammatories (NSAID); Z88.0 Allergy status to penicillin; Z79.82 Long term (current) use of aspirin
CPT/HCPCS: 36415; 71046; 80053; 83735; 83880; 84484; 85025; 93005; 99285

== ENCOUNTER 2021-01-24 08:42 | Emergency (ER) | payer MEDICARE ==
[2021-01-24 08:49] VITALS: RESP 18; TEMP 97.8
[2021-01-24] MEDS ORDERED: ONDANSETRON 4 MG/2 ML VIAL IVP STA (09:15)
[2021-01-24] MEDS ORDERED: SODIUM CHLORIDE 0.9% 1,000 ML IV STA ×2 (09:15)
[2021-01-24] MEDS ORDERED: MORPHINE SULFATE 4 MG/ML SYRINGE IV STA (09:15)
--- NOTE | 2021-01-24 09:19 | ED ---
Abdominal Pain HPI - General Chief Complaint: Abdominal Pain Stated Complaint: Poss kidney stone Time Seen by Provider: 01/24/21 08:52 Source: patient, RN notes reviewed, old records reviewed Mode of arrival: wheelchair Limitations: no limitations - History of Present Illness Initial Comments: This is a pleasant 80-year-old female who presents emergency department today with 3 days of right groin pain. Patient reports that the pain seemed to progressively worse over the past 3 days. She states that she has not noticed any significant hematuria. She reports the pain feels similar to previous kidney stones. Patient states she did contact her PCP was plan an ultrasound this week. Patient states that she has no chest pain shortness of breath. She does report that she has history of lower extremity swelling that has diminished after being on Lasix recently. - Related Data Home Medications Medication Instructions Recorded Confirmed Levothyroxine Sodium [Synthroid] 50 mcg PO DAILY 10/29/20 01/24/21 Aspirin EC [Ecotrin Low Dose] 81 mg PO DAILY 01/06/21 01/24/21 Ibuprofen [Motrin] 800 mg PO TID PRN 01/06/21 01/24/21 Ergocalciferol [Vitamin D2 (1250 1,250 mcg PO FR 01/24/21 01/24/21 Mcg = [id number] Iu)] Previous Rx's Medication Instructions Recorded Nitrofurantoin Monohyd/M-Cryst 100 mg PO Q12HR #14 cap 01/24/21 [Macrobid] Allergies Allergy/AdvReac Type Severity Reaction Status Date / Time Penicillins Allergy Swelling Verified 01/24/21 11:30 Review of Systems ROS Statement: Those systems with pertinent positive or pertinent negative responses have been documented in the HPI. ROS Other: All systems not noted in ROS Statement are negative. Past Medical History Past Medical History: Osteoarthritis (OA), Thyroid Disorder Additional Past Medical History / Comment(s): kidney stones, cervical pain, History of Any Multi-Drug Resistant Organisms: None Reported Past Surgical History: Appendectomy, Orthopedic Surgery Additional Past Surgical History / Comment(s): mult. surgeries left leg for shattered femur, PAIN CLINIC PROCEDURES Past Anesthesia/Blood Transfusion Reactions: Motion Sickness Past Psychological History: No Psychological Hx Reported Smoking Status: Never smoker Past Alcohol Use History: None Reported Past Drug Use History: None Reported - Past Family History Mother Family Medical History: No Reported History General Exam - General Exam Comments Initial Comments: Pleasant 80-year-old female. Limitations: no limitations General appearance: alert, in no apparent distress Head exam: Present: atraumatic, normocephalic, normal inspection Eye exam: Present: normal appearance, PERRL, EOMI. Absent: scleral icterus, conjunctival injection, periorbital swelling ENT exam: Present: normal exam, mucous membranes moist Neck exam: Present: normal inspection. Absent: tenderness, meningismus, ly mphadenopathy Respiratory exam: Present: normal lung sounds bilaterally. Absent: respiratory distress, wheezes, rales, rhonchi, stridor Cardiovascular Exam: Present: regular rate, normal rhythm GI/Abdominal exam: Present: soft, normal bowel sounds. Absent: distended, tenderness, guarding, rebound, rigid Neurological exam: Present: alert, oriented X3, CN II-XII intact Psychiatric exam: Present: normal affect, normal mood Skin exam: Present: warm, dry, intact, normal color. Absent: rash Course Vital Signs 01/24/21 08:46 Temperature 97.8 F Pulse Rate 100 Respiratory 18 Rate Blood Pressure 148/74 O2 Sat by Pulse 99 Oximetry Medical Decision Making - Medical Decision Making 80-year-old female presents with right lower quadrant and right flank pain for the past 3 days. She states that symptoms seem similar to kidney stone. This time urinalysis shows no sign of hematuria. There is evidence of a slight urinary tract infection. CBC and CMP are unremarkable. A CT pelvis without contrast showed no acute process for related patient's symptoms. I discussed this time treatment with antibiotic and anti-inflammatory medication for pain. Discussed falling up with PCP. All questions answered and return parameters were discussed. - Lab Data Result diagrams: 01/24/21 09:35 01/24/21 09:35 Lab Results 01/24/21 01/24/21 01/24/21 Range/Units 09:35 09:35 09:44 WBC 5.5 (3.8-10.6) k/uL RBC 3.76 L (3.80-5.40) m/uL Hgb 11.1 L (11.4-16.0) gm/dL Hct 32.8 L (34.0-46.0) % MCV 87.2 (80.0-100.0) fL MCH 29.6 (25.0-35.0) pg MCHC 34.0 (31.0-37.0) g/dL RDW 14.9 (11.5-15.5) % Plt Count 272 (150-450) k/uL MPV 7.6 Neutrophils % 76 % Lymphocytes % 17 % Monocytes % 4 % Eosinophils % 2 % Basophils % 0 % Neutrophils # 4.2 (1.3-7.7) k/uL Lymphocytes # 0.9 L (1.0-4.8) k/uL Monocytes # 0.2 (0-1.0) k/uL Eosinophils # 0.1 (0-0.7) k/uL Basophils # 0.0 (0-0.2) k/uL Sodium 138 (137-145) mmol/L Potassium 4.0 (3.5-5.1) mmol/L Chloride 110 H (98-107) mmol/L Carbon Dioxide 20 L (22-30) mmol/L Anion Gap 8 mmol/L BUN 20 H (7-17) mg/dL Creatinine 0.84 (0.52-1.04) mg/dL Est GFR (CKD-EPI)AfAm 76 (>60 ml/min/1.73 sqM) Est GFR (CKD-EPI)NonAf 66 (>60 ml/min/1.73 sqM) Glucose 96 (74-99) mg/dL Calcium 10.7 H (8.4-10.2) mg/dL Total Bilirubin 0.3 (0.2-1.3) mg/dL AST 15 (14-36) U/L ALT 7 (4-34) U/L Alkaline Phosphatase 92 (38-126) U/L Total Protein 6.3 (6.3-8.2) g/dL Albumin 3.4 L (3.5-5.0) g/dL Amylase 55 (30-110) U/L Lipase 30 (23-300) U/L Urine Color Yellow Urine Appearance Clear (Clear) Urine pH 6.0 (5.0-8.0) Ur Specific [place] 1.023 (1.001-1.035) Urine Protein Trace H (Negative) Urine Glucose (UA) Negative (Negative) Urine Ketones Negative (Negative) Urine Blood Negative (Negative) Urine Nitrite Negative (Negative) Urine Bilirubin Negative (Negative) Urine Urobilinogen <2.0 (<2.0) mg/dL Ur Leukocyte Esterase Moderate H (Negative) Urine RBC 3 (0-5) /hpf Urine WBC 24 H (0-5) /hpf Ur Squamous Epith Cells 3 (0-4) /hpf Urine Mucus Rare H (None) /hpf - Radiology Data Radiology results: report reviewed EKG is no acute processes identified at this time. Correlate clinically. Disposition Clinical Impression: UTI (urinary tract infection), Right sided abdominal pain Disposition: HOME SELF-CARE Condition: Good Instructions (If sedation given, give patient instructions): Urinary Tract Infection in Women (DC) Additional Instructions: Please use medication as discussed. Please follow up with family doctor if symptoms have not improved over the next two days. Please return to the emergency room if your symptoms increase or worsen or for any other concerns. Prescriptions: Nitrofurantoin Monohyd/M-Cryst [Macrobid] 100 mg PO Q12HR #14 cap Is patient prescribed a controlled substance at d/c from ED?: No Referrals: Keron Littlejohn MD [Primary Care Provider] - 1-2 days Time of Disposition: 11:32
[2021-01-24 09:56] LABS: Basophils % (A) 0 %; Eosinophils # (A) 0.1 k/uL (0-0.7); Eosinophils % (A) 2 %; HCT 32.8 % (34.0-46.0); HGB 11.1 gm/dL (11.4-16.0); Lymphocytes # (A) 0.9 k/uL (1.0-4.8); Lymphocytes % (A) 17 %; MCH 29.6 pg (25.0-35.0); MCV 87.2 fL (80.0-100.0); Mean Platelet Volume 7.6; Monocytes # (A) 0.2 k/uL (0-1.0); Monocytes % (A) 4 %; Neutrophils # (A) 4.2 k/uL (1.3-7.7); Neutrophils % (A) 76 %; Platelet Count 272 k/uL (150-450); RBC 3.76 m/uL (3.80-5.40); RDW 14.9 % (11.5-15.5); WBC 5.5 k/uL (3.8-10.6)
--- NOTE | 2021-01-24 09:58 | XR ---
EXAMINATION TYPE: XR KUB DATE OF EXAM: 01/24/2021 COMPARISON: NONE HISTORY: Pain TECHNIQUE: Single supine KUB image of the abdomen is obtained FINDINGS: Small bowel demonstrates no evidence for dilatation or air fluid levels. Gas and fecal material is seen in non-distended colon. No convincing evidence for pneumoperitoneum. No unusual calcifications. The lung bases are clear. The osseous structures are intact. IMPRESSION: 1. Overall nonobstructive bowel gas pattern.
[2021-01-24 10:06] LABS: Albumin 3.4 g/dL (3.5-5.0); Calcium 10.7 mg/dL (8.4-10.2); Total Bilirubin 0.3 mg/dL (0.2-1.3); Total Protein 6.3 g/dL (6.3-8.2)
[2021-01-24 10:16] LABS: Appearance,Urine Clear (Clear); Bilirubin,Urine Negative (Negative); Blood,Urine Negative (Negative); Color,Urine Yellow; Glucose,Urine (UA) Negative (Negative); Ketones,Urine Negative (Negative); Leukocyte Esterase,Urine Moderate (Negative); Mucus,Urine Rare /hpf; Nitrite,Urine Negative (Negative); Protein,Urine Trace (Negative); RBC,Urine 3 /hpf (0-5); Specific Gravity,Urine 1.023 (1.001-1.035); Squamous Epithelial Cell,Urine 3 /hpf (0-4); Urobilinogen,Urine <2.0 mg/dL (<2.0); WBC,Urine 24 /hpf (0-5)
[2021-01-24] MEDS ORDERED: KETOROLAC 15 MG/ML 1 ML VIAL IVP STA (10:21)
--- NOTE | 2021-01-24 11:16 | CT ---
EXAMINATION TYPE: CT abdomen pelvis wo con DATE OF EXAM: 01/24/2021 COMPARISON: None HISTORY: RLQ groin pain CT DLP: 562.8 mGycm Examination of the solid and hollow viscera is limited given the lack of contrast. FINDINGS: LUNG BASES: No evidence for nodule. No evidence for infiltrate. Basilar linear atelectasis. LIVER/GB: The gallbladder is unremarkable. No space-occupying hepatic lesion. PANCREAS: No pancreatic mass identified. No inflammatory process seen. SPLEEN: No evidence for splenomegaly. No intrasplenic lesions seen. ADRENALS: No adrenal nodules identified. No evidence for thickening. KIDNEYS: No evidence for renal mass. No nephrolithiasis. No hydronephrosis. BOWEL: Nonvisualization of the appendix. No inflammatory process right lower quadrant. No evidence of bowel obstruction. No inflammatory process. Lymph nodes: No evidence for adenopathy greater than 1 cm. Abdominal aorta: Atheromatous changes seen. No evidence for aneurysm. Genital organs: No significant abnormality. Other: Severe degenerative disc disease. Postoperative changes left hip. IMPRESSION: NO ACUTE PROCESS IDENTIFIED AT THIS TIME. CORRELATE CLINICALLY.
[2021-01-24] MEDS ORDERED: NITROFURANTOIN MONOHYD/M-CRYST 100 MG CAP PO STA (11:33)
[2021-01-24 11:34] VITALS: BP 177/80; PULSE 79
== END 2021-01-24 12:06 | disposition home or self-care (01) ==
LOC: EC 08:42
DX: N39.0 Urinary tract infection, site not specified (principal); M19.90 Unspecified osteoarthritis, unspecified site
CPT/HCPCS: 99284; 96374; 96375; 96361; 36415; 80053; 82150; 83690; 85025; 81001; 87086; 74018; 74176; J2270; J2405; J1885

== ENCOUNTER 2021-05-06 00:55 | Observation (INO) | payer MEDICARE ==
[2021-05-06] MEDS ORDERED: SODIUM CHLORIDE 0.9% 1,000 ML IV STA (01:10)
--- NOTE | 2021-05-06 01:11 | ED ---
Chest Pain HPI - General Chief Complaint: Chest Pain Stated Complaint: Chest Pain Time Seen by Provider: 05/06/21 01:10 Source: EMS, RN notes reviewed, old records reviewed Mode of arrival: EMS Limitations: no limitations - History of Present Illness Initial Comments: This is a 80-year-old female DF for evaluation chest pain chest pain left-sided and left back. Persistent. Patient does admit to anxiety she doesn't alone but also is having abdominal pain and also complains of some bilateral knee pain. Patient states the pain and there is chronic. This chest pain is new and woke her up from sleep adonay WESLEY Complaint: chest pain -: hour(s) Onset: awoke with symptoms Pain Location: left chest Pain Radiation: LUE Severity: moderate Severity scale (1-10): 5 Quality: tightness Consistency: constant Improves With: nothing Worsens With: nothing Anginal Symptoms: nausea Other Symptoms: palpitations Treatments Prior to Arrival: none - Related Data Home Medications Medication Instructions Recorded Confirmed Aspirin EC [Ecotrin Low Dose] 81 mg PO DAILY 01/06/21 05/06/21 Acetaminophen [Tylenol] 325 mg PO Q6H PRN 05/06/21 05/06/21 Ibuprofen [Motrin Ib] 200 mg PO Q6H PRN 05/06/21 05/06/21 Levothyroxine Sodium 25 mcg PO DAILY 05/06/21 05/06/21 Allergies Allergy/AdvReac Type Severity Reaction Status Date / Time Penicillins Allergy Swelling Verified 05/06/21 07:05 Review of Systems ROS Statement: Those systems with pertinent positive or pertinent negative responses have been documented in the HPI. ROS Other: All systems not noted in ROS Statement are negative. EKG Findings - EKG Comments: EKG Findings:: EKG shows sinus rhythm 79 OK 158 QRS 70 QTC 438 Past Medical History Past Medical History: Osteoarthritis (OA), Thyroid Disorder Additional Past Medical History / Comment(s): kidney stones, cervical pain, History of Any Multi-Drug Resistant Organisms: None Reported Past Surgical History: Appendectomy, Orthopedic Surgery Additional Past Surgical History / Comment(s): mult. surgeries left leg for shattered femur, PAIN CLINIC PROCEDURES Past Anesthesia/Blood Transfusion Reactions: Motion Sickness Past Psychological History: No Psychological Hx Reported Smoking Status: Never smoker Past Alcohol Use History: None Reported Past Drug Use History: None Reported - Past Family History Mother Family Medical History: No Reported History General Exam General appearance: alert, in no apparent distress, anxious Head exam: Present: atraumatic, normocephalic, normal inspection Eye exam: Present: normal appearance, PERRL, EOMI. Absent: scleral icterus, conjunctival injection, periorbital swelling ENT exam: Present: normal exam, mucous membranes moist Neck exam: Present: normal inspection. Absent: tenderness, meningismus, lymphadenopathy Respiratory exam: Present: normal lung sounds bilaterally. Absent: respiratory distress, wheezes, rales, rhonchi, stridor Cardiovascular Exam: Present: normal rhythm, tachycardia, normal heart sounds. Absent: systolic murmur, diastolic murmur, rubs, gallop, clicks GI/Abdominal exam: Present: soft, normal bowel sounds. Absent: distended, tenderness, guarding, rebound, rigid Extremities exam: Present: normal inspection, full ROM, normal capillary refill. Absent: tenderness, pedal edema, joint swelling, calf tenderness Back exam: Present: normal inspection Neurological exam: Present: alert, oriented X3, CN II-XII intact Psychiatric exam: Present: normal affect, normal mood Skin exam: Present: warm, dry, intact, normal color. Absent: rash Course Vital Signs 05/06/21 05/06/21 05/06/21 00:57 01:36 02:41 Temperature 98 F Pulse Rate 106 H 82 Respiratory 20 18 Rate Blood Pressure 173/110 168/87 172/82 O2 Sat by Pulse 95 100 Oximetry 05/06/21 05/06/21 05/06/21 06:05 07:07 09:58 Temperature Pulse Rate 107 H 80 101 H Respiratory 18 16 18 Rate Blood Pressure 133/103 147/79 164/94 O2 Sat by Pulse 100 99 99 Oximetry 05/06/21 11:01 Temperature 99.9 F H Pulse Rate 102 H Respiratory 18 Rate Blood Pressure 144/68 O2 Sat by Pulse 95 Oximetry - Reevaluation(s) Reevaluation #1: Medical record is reviewed Patient symptoms are improved here in the ER Patient is in no acute distress Patient informed results and questions answered Reevaluation #2: Pain has remained persistent here in the ER Patient prefers admission Chest Pain MDM - MDM 80 female DF for evaluation of chest pain. Patient presents today for evaluation of chest pain patient has negative chest x-rays, will be admitted for chest pain observation Disposition Clinical Impression: Chest pain, Abdominal pain Disposition: ADMITTED IP TO THIS HOSP Condition: Undetermined Is patient prescribed a controlled substance at d/c from ED?: No
[2021-05-06] MEDS ORDERED: MORPHINE SULFATE 4 MG/ML SYRINGE IVP STA (01:19)
--- NOTE | 2021-05-06 01:26 | XR ---
EXAMINATION TYPE: XR chest 1V DATE OF EXAM: 05/06/2021 COMPARISON: 01/06/2021 HISTORY: Chest pain TECHNIQUE: FINDINGS: Heart is normal. Lungs are clear of infiltrate. There is no heart failure. Thoracic aorta i s atheromatous. There are chest leads. Bony thorax is intact. There is osteopenia. IMPRESSION: No active cardiopulmonary disease. No change.
[2021-05-06 01:30] LABS: Basophils % (A) 0 %; Eosinophils # (A) 0.1 k/uL (0-0.7); Eosinophils % (A) 1 %; HCT 33.7 % (34.0-46.0); HGB 11.2 gm/dL (11.4-16.0); Lymphocytes # (A) 1.8 k/uL (1.0-4.8); Lymphocytes % (A) 24 %; MCH 28.1 pg (25.0-35.0); MCHC 33.3 g/dL (31.0-37.0); MCV 84.3 fL (80.0-100.0); Mean Platelet Volume 7.6; Monocytes # (A) 0.3 k/uL (0-1.0); Monocytes % (A) 4 %; Neutrophils # (A) 5.3 k/uL (1.3-7.7); Neutrophils % (A) 70 %; Platelet Count 306 k/uL (150-450); RDW 15.3 % (11.5-15.5); WBC 7.6 k/uL (3.8-10.6)
[2021-05-06 01:50] LABS: ALT 12 U/L (4-34); AST 17 U/L (14-36); African American GFR (CKD) >90 (>60 ml/min/1.73 sqM); Albumin 3.6 g/dL (3.5-5.0); Alkaline Phosphatase 97 U/L (38-126); Anion Gap 8 mmol/L; Blood Urea Nitrogen 16 mg/dL (7-17); Calcium 11.2 mg/dL (8.4-10.2); Carbon Dioxide 23 mmol/L (22-30); Chloride 110 mmol/L (98-107); Creatine Kinase 43 U/L (30-135); Glucose 112 mg/dL (74-99); Lipase 34 U/L (23-300); Magnesium 1.7 mg/dL (1.6-2.3); Non-African American GFR(CKD) 82 (>60 ml/min/1.73 sqM); Potassium 3.8 mmol/L (3.5-5.1); Sodium 141 mmol/L (137-145); Total Bilirubin 0.3 mg/dL (0.2-1.3); Total Protein 6.6 g/dL (6.3-8.2)
[2021-05-06] MEDS ORDERED: NITROGLYCERIN SL TABS 0.4 MG TAB SUBLINGUAL PRN (01:53)
[2021-05-06] MEDS ORDERED: ASPIRIN 81 MG PO STA (01:53)
[2021-05-06 01:58] LABS: D-Dimer 1.74 mg/L FEU (<0.60); Prothrombin Time 10.8 sec (9.0-12.0)
[2021-05-06] MEDS: SODIUM CHLORIDE 0.9% 1,000 ML IV SCH (02:49)
[2021-05-06] MEDS: MORPHINE SULFATE 4 MG/ML SYRINGE IV PRN ×4 (06:01→20:01)
--- NOTE | 2021-05-06 13:10 | P.HPIM ---
History of Present Illness H&P Date: 05/06/21 HISTORY OF PRESENT ILLNESS This is a 80-year-old female patient of Dr. Dr. Littlejohn with past medical history of hypothyroidism, rheumatoid arthritis. Patient complains of midsternal to lower sternal epigastric pain/tightness. She also still complains of ache in her bilateral shoulders. She denies having any cardiac history and has not followed with therapeutic recreation director in the past. Patient denies having any diarrhea. She came into [facility] emergency center for evaluation. She has been afebrile, heart rate 106, blood pressure 172/80, pulse ox 90% on room air. WBC 7.6, hemoglobin 11.2, platelet count 306. D-dimer 1.74. INR 1.0. Sodium 141, potassium 3.8, chloride 110, CO2 23, BUN 16 and creatinine 0.71. Blood sugar 112. Calcium 11.2. Magnesium 1.7, total bilirubin 0.3, AST 17, ALT 12, alkaline phosphatase 97. Troponin negative on 3 draws. Pro BNP 174. Albumin 3.6. Lipase 34. EKG sinus EKG is a sinus rhythm. Chest x-ray no active cardiac pulmonary disease. Patient was started on aspirin, morphine, IV fluids, to be admitted to the observation unit. Echocardiogram and CTA of the chest as well as cardiology consult added. REVIEW OF SYSTEMS Constitutional: No fever, no chills, no night sweats. No weight change. No weakness, fatigue or lethargy. No daytime sleepiness. EENT: No headache. No blurred vision or double vision, no loss of vision. No loss of Hearing, no ringing in the ears, no dizziness. No nasal drainage or congestion. No epistaxis. No sore throat. Lungs: No shortness of breath, cough, no sputum production. No wheezing. Cardiovascular: Reports chest pain, no lower extremity edema. No palpitations. No paroxysmal nocturnal dyspnea. No orthopnea. No lightheadedness or dizziness. No syncopal episodes. Abdominal: Reports epigastric abdominal pain. No nausea, vomiting. No diar cheryle. No constipation. No bloody or tarry stools.. No loss of appetite. Genitourinary: No dysuria, increased frequency, urgency. No urinary retention. Musculoskeletal: No myalgias. No muscle weakness, no gait dysfunction, no frequent falls. No back pain. No neck pain. Bilateral shoulder pain. Chronic joint deformities secondary to rheumatoid arthritis. Leg shortened on left side. Integumentary: No wounds, no lesions. No rash or pruritus. No unusual bruising. No change in hair or nails. Neurologic: No aphasia. No facial droop. No change in mentation. No head injury. No headache. No paralysis. No paresthesia. Psychiatric: No depression. No anxiety. No mood swings. Endocrine: No abnormal blood sugars. No weight change. No excessive sweating or thirst. No cold intolerance. SOCIAL HISTORY Patient denies history of smoking, illicit drug use, marijuana use or alcohol use. She uses a walker for ambulation. FAMILY HISTORY Both parents have passed and both had history of Alzheimer's dementia. Patient has 1 brother with no major medical problems. PHYSICAL EXAMINATION Gen: This is a 80-year-old female. She is resting on the ER stretcher and appears to be comfortable and in no acute distress. HEENT: Head is atraumatic, normocephalic. Pupils equal, round. Sclerae is anicteric. NECK: Supple. No JVD. No lymphadenopathy. No thyromegaly. LUNGS: Clear to auscultation. No wheezes or rhonchi. No intercostal retractions. HEART: Regular rate and rhythm. No murmur. ABDOMEN: Soft. Bowel sounds are present. No masses. Epigastric tenderness. EXTREMITIES: No pedal edema. No calf tenderness. NEUROLOGICAL: Patient is awake, alert and oriented x3. Cranial nerves 2 through 12 are grossly intact. ASSESSMENT AND PLAN 1. Chest pain with negative troponins. Cardiology consult, echocardiogram ordered. 2. Elevated d-dimer. CT angiogram of the chest ordered. 3. Epigastric tenderness possible gastritis. Patient started on Protonix 40 mg daily and hold ibuprofen. 4. Hypothyroidism. Continue levothyroxine 25 g daily. 5. Rheumatoid arthritis with joint deformities. Patient is normally on ibuprofen which will be on hold. 6. GI prophylaxis. Protonix. 7. DVT prophylaxis. Heparin subcu. Patient will be admitted to the hospital for a minimum of 2 night stay. DISCHARGE PLAN Home. Impression and plan of care have been directed as dictated by the signing physician. Tara Lagunas nurse practitioner acting as scribe for signing physician. Past Medical History Past Medical History: Osteoarthritis (OA), Thyroid Disorder Additional Past Medical History / Comment(s): kidney stones, cervical pain, History of Any Multi-Drug Resistant Organisms: None Reported Past Surgical History: Appendectomy, Orthopedic Surgery Additional Past Surgical History / Comment(s): mult. surgeries left leg for shattered femur, PAIN CLINIC PROCEDURES Past Anesthesia/Blood Transfusion Reactions: Motion Sickness Past Psychological History: No Psychological Hx Reported Smoking Status: Never smoker Past Alcohol Use History: None Reported Past Drug Use History: None Reported - Past Family History Mother Family Medical History: No Reported History Medications and Allergies Home Medications Medication Instructions Recorded Confirmed Type Aspirin EC [Ecotrin Low Dose] 81 mg PO DAILY 01/06/21 05/06/21 History Acetaminophen [Tylenol] 325 mg PO Q6H PRN 05/06/21 05/06/21 History Ibuprofen [Motrin Ib] 200 mg PO Q6H PRN 05/06/21 05/06/21 History Levothyroxine Sodium 25 mcg PO DAILY 05/06/21 05/06/21 History Allergies Allergy/AdvReac Type Severity Reaction Status Date / Time Penicillins Allergy Swelling Verified 05/06/21 07:05 Physical Exam Vitals: Vital Signs Temp Pulse Resp BP Pulse Ox 05/06/21 09:58 101 H 18 164/94 99 05/06/21 07:07 80 16 147/79 99 05/06/21 06:05 107 H 18 133/103 100 05/06/21 02:41 82 18 172/82 100 05/06/21 01:36 168/87 05/06/21 00:57 98 F 106 H 20 173/110 95 Intake and Output 05/05/21 05/06/21 05/06/21 22:59 06:59 14:59 Other: Weight 67.132 kg Results CBC & Chem 7: 05/06/21 01:13 05/06/21 01:13 Labs: Abnormal Lab Results - Last 24 Hours (Table) 05/06/21 05/06/21 05/06/21 Range/Units 01:13 01:13 01:13 Hgb 11.2 L (11.4-16.0) gm/dL Hct 33.7 L (34.0-46.0) % D-Dimer 1.74 H (<0.60) mg/L FEU Chloride 110 H (98-107) mmol/L Glucose 112 H (74-99) mg/dL Calcium 11.2 H (8.4-10.2) mg/dL
--- NOTE | 2021-05-06 13:48 | CT ---
EXAMINATION TYPE: CT angio chest DATE OF EXAM: 05/06/2021 COMPARISON: None HISTORY: elevated dimer CT DLP: 146.4 mGycm CONTRAST: CT chest with contrast and 3D reconstruction with MIP imaging is performed with IV Contrast, patient injected with 100 mL of Isovue 370. Contrast-enhanced CT of the chest was performed through the course of the pulmonary arteries with wilver g and mediastinal window settings submitted. 3D reconstruction with MIP imaging was also performed. PULMONARY ARTERIES: The pulmonary arteries and their major tributaries are patent. I do not see rupa dence for sizable filling defect to suggest pulmonary embolic process. LUNGS: Linear basilar atelectasis and small effusions. No pulmonary nodule or mass is detected. No p leural effusion. MEDIASTINUM: Thoracic aorta is of normal caliber,however, evaluation is limited given timing of the contrast bolus. If there is concern for thoracic aortic pathology consider SHEA. Correlate clinicall y . The heart is not enlarged. No evidence for mediastinal mass. No mediastinal lymph nodes greater than 1cm. HILAR STRUCTURES: No evidence for mass. No hilar lymph nodes greater than 1 cm. UPPER ABDOMEN: No significant abnormality is seen. IMPRESSION: 1. No evidence for Pulmonary embolism at this time.
[2021-05-06] MEDS: PANTOPRAZOLE 40 MG TABLET PO SCH (14:53)
[2021-05-06] MEDS: HEPARIN SODIUM,PORCINE/PF 5,000 UNIT/0.5 ML SYRINGE SQ SCH (20:01)
[2021-05-07] MEDS: SODIUM CHLORIDE 0.9% 1,000 ML IV SCH ×2 (03:37→19:16)
[2021-05-07] MEDS: LEVOTHYROXINE 25 MCG TAB PO SCH (06:25)
--- NOTE | 2021-05-07 07:55 | ECHOF ---
Referral Reason:shortness of breath LV function MEASUREMENTS -------- HEIGHT: 162.6 cm WEIGHT: 67.1 kg BP: 93/65 RVIDd: 3.4 cm (< 3.3) IVSd: 1.1 cm (0.6 - 1.1) LVIDd: 3.9 cm (3.9 - 5.3) LVPWd: 1.1 cm (0.6 - 1.1) IVSs: 1.6 cm LVIDs: 2.7 cm LVPWs: 1.3 cm LA Diam: 3.3 cm (2.7 - 3.8) LAESV Index (A-L): 34.62 ml/m Ao Diam: 3.4 cm (2.0 - 3.7) AV Cusp: 2.0 cm (1.5 - 2.6) MV EXCURSION: 13.015 mm (> 18.000) MV EF SLOPE: 95 mm/s (70 - 150) EPSS: 0.7 cm MV E Peter: 0.61 m/s MV DecT: 475 ms MV A Peter: 1.12 m/s MV E/A Ratio: 0.54 RAP: 5.00 mmHg RVSP: 29.66 mmHg FINDINGS -------- Sinus rhythm. This was a technically good study. The left ventricular size is normal. There is borderline concentric left ventricular hypertrophy. Overall left ventricular systolic function is normal with, an EF between 55 - 60 %. The right ventricle is mildly enlarged. LA is moderately dilated 34-39 ml/m2 The right atrium is normal in size. Aneurysmal Interatrial septum. The aortic valve is trileaflet, and appears structurally normal. No aortic stenosis or regurgitation. Mild mitral annular calcification present. There is trace to mild mitral regurgitation. There is mild pulmonary hypertension. The right ventricular systolic pressure, as measured by Doppl er, is 29.66mmHg. Trace/mild (physiologic) pulmonic regurgitation. The aortic root size is normal. Normal inferior vena cava with normal inspiratory collapse consistent with estimated right atrial pre ssure of 5 mmHg. There is no pericardial effusion. CONCLUSIONS -------- 1. The left ventricular size is normal. 2. There is borderline concentric left ventricular hypertrophy. 3. Overall left ventricular systolic function is normal with, an EF between 55 - 60 %. 4. The right ventricle is mildly enlarged. 5. LA is moderately dilated 34-39 ml/m2 6. Aneurysmal Interatrial septum. 7. The aortic valve is trileaflet, and appears structurally normal. No aortic stenosis or regurgitati on. 8. Mild mitral annular calcification present. 9. There is trace to mild mitral regurgitation. 10. There is mild pulmonary hypertension. 11. Trace/mild (physiologic) pulmonic regurgitation. 12. There is no pericardial effusion. EMR TRAINER: Filomena Hutchinson RDCS
[2021-05-07] MEDS ORDERED: ALPRAZolam 0.5 MG TAB PO PRN (07:59)
[2021-05-07] MEDS ORDERED: ATORVASTATIN 80 MG TAB PO STA (07:59)
[2021-05-07] MEDS ORDERED: ALPRAZolam 0.25 MG TAB PO PRN (07:59)
[2021-05-07 08:13] LABS: African American GFR (CKD) >90 (>60 ml/min/1.73 sqM); Anion Gap 6 mmol/L; Blood Urea Nitrogen 12 mg/dL (7-17); Calcium 10.1 mg/dL (8.4-10.2); Carbon Dioxide 24 mmol/L (22-30); Chloride 106 mmol/L (98-107); Glucose 90 mg/dL (74-99); Non-African American GFR(CKD) 88 (>60 ml/min/1.73 sqM); Potassium 3.7 mmol/L (3.5-5.1); Sodium 136 mmol/L (137-145)
[2021-05-07] MEDS: ASPIRIN 81 MG PO SCH (08:37)
[2021-05-07] MEDS: METOPROLOL TARTRATE 25 MG TAB PO SCH ×2 (08:37→20:12)
[2021-05-07] MEDS: PANTOPRAZOLE 40 MG TABLET PO SCH (08:38)
[2021-05-07] MEDS: HEPARIN SODIUM,PORCINE/PF 5,000 UNIT/0.5 ML SYRINGE SQ SCH ×2 (08:38→20:12)
[2021-05-07] MEDS ORDERED: ASPIRIN 325 MG TAB PO SCH (09:00)
[2021-05-07 09:46] LABS: Chol/HDL Ratio 3.14
[2021-05-07] MEDS ORDERED: HEPARIN SODIUM 1,000 UN/ML (10ML VL) ONE (10:27)
[2021-05-07] MEDS ORDERED: LIDOCAINE 1% INJ 10MG/ML (20 ML MDV) ONE (10:28)
[2021-05-07] MEDS ORDERED: VERAPAMIL 2.5 MG/ML 2 ML AMP ONE (10:28)
[2021-05-07] MEDS ORDERED: IV FLUID CONTINUATION 300 ML IV ONE (10:30)
--- NOTE | 2021-05-07 10:32 | P.CRDCN ---
History of Present Illness History of present illness: HISTORY OF PRESENTING ILLNESS This is a pleasant 80-year-old female past medical history significant for dyslipidemia, hypertension, hypothyroidism, bilateral lower extremity edema. She follows in the office with Dr. Jung. We have been asked to see in consultation for chest pain. Patient is seen and examined at bedside, no acute distress. She states that she has been having midsternal chest pain, middle upper back pain and bilateral leg pain for the past couple days. She is unable to describe her chest pain. Her pain was relieved with Tylenol at home. She also endorses associated shortness of breath, nausea, lightheadedness, dizziness, diaphoresis. She states when she palpates her neck or back it does worsen her pain. Also when she moves her neck and also worsens her pain. She denies any symptoms of orthopnea or PND. She denies any injury. She denies history of [place], diabetes, stroke. She denies any family history of heart disease. She is a nonsmoker. She denies alcohol or illicit drug use. She states that she's had this pain before a couple years ago in 2019 she had similar pain she underwent dobutamine stress echo which was negative for induced ischemia. Most recent echocardiogram was 01/07/2021 which revealed EF 55%, mild to moderate pulmonary hypertension. DIAGNOSTICS EKG reveals sinus rhythm, heart rate 99, PACs. No significant STT wave abnormalities.. Telemetry tracings indicate sinus mechanism HR 80-90s Chest xray no active cardiopulmonary disease. CT chest revealed no evidence of pulmonary embolism, there is concern for thoracic aortic pathology, consider SHEA Echocardiogram 05/05/2021 revealed an EF of 55-60%, RV is mildly enlarged, LA is mildly dilated, aneurysmal anterior artery septum, trace to mild mitral regurgitation, mild pulmonary hypertension. Laboratory reviewed, on admission WBC 7.6, hemoglobin 11, place 306, d-dimer is elevated 1.7, sodium 141, potassium 3.8, BUN 16, serum creatinine 0.7, magnesium 1.7, troponin negative 3, proBNP 174. Current home cardiac medications include aspirin 81 mg daily REVIEW OF SYSTEMS At the time of my exam: CONSTITUTIONAL: Denies fever or chills. CARDIOVASCULAR: Positive chest pain, positive shortness of breath, positive lightheadedness, positive dizziness, positive diaphoresis. Denies orthopnea, PND or palpitations. RESPIRATORY: Denies cough. GASTROINTESTINAL: Positive nausea Denies abdominal pain, diarrhea, constipation, vomiting. MUSCULOSKELETAL: Positive neck pain, positive upper back pain NEUROLOGIC: Denies numbness, tingling, headacbe or weakness. ENDOCRINE: Denies fatigue, weight change, polydipsia or polyurina. GENITOURINARY: Denies burning, hematuria or urgency with micturation. HEMATOLOGIC: Denies history of anemia or bleeding. PHYSICAL EXAMINATION Blood pressure 160/74 heart rate 93 afebrile and maintaining oxygen saturation on room air. CONSTITUTIONAL: No apparent distress. HEENT: Head is normocephalic. Pupils are equal, round. Sclerae anicteric. Mucous membranes of the mouth are moist. No JVD. No carotid bruit. CHEST EXAMINATION: Lungs are clear to auscultation. Chest wall tenderness with palpation. HEART EXAMINATION: Regular rate and rhythm. S1, S2 heard. No murmurs, gallops or rub. ABDOMEN: Soft, nontender. Positive bowel sounds. EXTREMITIES: 2+ peripheral pulses, no lower extremity edema and no calf tenderness. MSK: Neck pain with bilateral movement of neck NEUROLOGIC EXAMINATION: Patient is awake, alert and oriented x3. ASSESSMENT Recurrent chest pain Shortness of breath Neck pain, upper back pain History of hypertension Hyperlipidemia Bilateral lower extremity edema Hypothyroidism PLAN 2D echocardiogram reviewed Will start metoprolol tartrate 25mg BID Increase IV fluids to NaCl 150cc/hr Repeat BMP this morning, serum creatinine 0.59, BUN 12. We will proceed with cardiac catheterization, this was discussed with the patient I have discussed the risks, benefits and alternative therapies for the above- mentioned procedure and for both sedation/analgesia as well as necessary blood product administration, if indicated, as they pertain to this patient. The patient has indicated understanding and acceptance of the risks and procedures discussed. Questions have been answered appropriately and he is agreeable to move forward with the above-stated procedure. Further recommendations based on clinical course Nurse Practitioner note has been reviewed, I agree with a documented findings and plan of care. Patient was seen and examined. Past Medical History Past Medical History: Osteoarthritis (OA), Thyroid Disorder Additional Past Medical History / Comment(s): kidney stones, cervical pain, History of Any Multi-Drug Resistant Organisms: None Reported Past Surgical History: Appendectomy, Orthopedic Surgery Additional Past Surgical History / Comment(s): mult. surgeries left leg for shattered femur, PAIN CLINIC PROCEDURES Past Anesthesia/Blood Transfusion Reactions: Motion Sickness Past Psychological History: No Psychological Hx Reported Smoking Status: Never smoker Past Alcohol Use History: None Reported Past Drug Use History: None Reported - Past Family History Mother Family Medical History: No Reported History Medications and Allergies Home Medications Medication Instructions Recorded Confirmed Type Aspirin EC [Ecotrin Low Dose] 81 mg PO DAILY 01/06/21 05/06/21 History Acetaminophen [Tylenol] 325 mg PO Q6H PRN 05/06/21 05/06/21 History Ibuprofen [Motrin Ib] 200 mg PO Q6H PRN 05/06/21 05/06/21 History Levothyroxine Sodium 25 mcg PO DAILY 05/06/21 05/06/21 History Allergies Allergy/AdvReac Type Severity Reaction Status Date / Time Penicillins Allergy Swelling Verified 05/06/21 07:05 Physical Exam Vitals: Vital Signs Temp Pulse Pulse Resp BP BP Pulse Ox 05/06/21 11:25 98.8 F 106 H 18 172/80 98 05/06/21 11:01 99.9 F H 102 H 18 144/68 95 05/06/21 09:58 101 H 18 164/94 99 05/06/21 07:07 80 16 147/79 99 05/06/21 06:05 107 H 18 133/103 100 05/06/21 02:41 82 18 172/82 100 05/06/21 01:36 168/87 05/06/21 00:57 98 F 106 H 20 173/110 95 Intake and Output 05/05/21 05/06/21 05/06/21 22:59 06:59 14:59 Other: Weight 67.132 kg 67.132 kg Results 05/06/21 01:13 05/07/21 03:43 Cardiac Enzymes 05/06/21 05/06/21 05/06/21 Range/Units 01:13 01:13 05:54 AST 17 (14-36) U/L Troponin I <0.012 <0.012 (0.000-0.034) ng/mL 05/06/21 Range/Units 09:09 AST (14-36) U/L Troponin I <0.012 (0.000-0.034) ng/mL Coagulation 05/06/21 Range/Units 01:13 PT 10.8 (9.0-12.0) sec APTT 23.0 (22.0-30.0) sec CBC 05/06/21 Range/Units 01:13 WBC 7.6 (3.8-10.6) k/uL RBC 4.00 (3.80-5.40) m/uL Hgb 11.2 L (11.4-16.0) gm/dL Hct 33.7 L (34.0-46.0) % Plt Count 306 (150-450) k/uL Comprehensive Metabolic Panel 05/06/21 Range/Units 01:13 Sodium 141 (137-145) mmol/L Potassium 3.8 (3.5-5.1) mmol/L Chloride 110 H (98-107) mmol/L Carbon Dioxide 23 (22-30) mmol/L BUN 16 (7-17) mg/dL Creatinine 0.71 (0.52-1.04) mg/dL Glucose 112 H (74-99) mg/dL Calcium 11.2 H (8.4-10.2) mg/dL AST 17 (14-36) U/L ALT 12 (4-34) U/L Alkaline Phosphatase 97 (38-126) U/L Total Protein 6.6 (6.3-8.2) g/dL Albumin 3.6 (3.5-5.0) g/dL Current Medications Generic Name Dose Route Start Last Admin Trade Name Freq PRN Reason Stop Dose Admin Aspirin 81 mg 05/07/21 09:00 Aspirin 325 Mg Tab PO DAILY DIANA Sodium Chloride 1,000 mls @ 20 mls/hr 05/06/21 02:00 05/06/21 02:49 Saline 0.9% IV 20 mls/hr .Q24H DIANA Administration Levothyroxine Sodium 25 mcg 05/07/21 06:30 Levothyroxine 25 Mc[place] 0630 DIANA Morphine Sulfate 4 mg 05/06/21 01:53 05/06/21 10:31 Morphine Sulfate 4 Mg/Ml Syringe IV 4 mg Q4HR PRN Administration Chest Pain Nitroglycerin 0.4 mg 05/06/21 01:53 Nitroglycerin Sl Tabs 0.4 Mg Tab SUBLINGUAL Q5M PRN Chest Pain Intake and Output 05/05/21 05/06/21 05/06/21 22:59 06:59 14:59 Other: Weight 67.132 kg 67.132 kg Patient Weight 05/07/21 06:59 Weight 67.132 kg 05/06/21 01:13 05/06/21 01:13
[2021-05-07] MEDS ORDERED: MIDAZOLAM 2 MG/2 ML VIAL IV ONE (10:43)
[2021-05-07] MEDS ORDERED: LIDOCAINE 1% INJ 10MG/ML (20 ML MDV) SQ ONE (10:43)
[2021-05-07] MEDS: VERAPAMIL SYRINGE (5 MG/10 ML) INTRAARTER ONE ×2 (10:45→11:04)
[2021-05-07] MEDS ORDERED: HEPARIN SODIUM 1,000 UN/ML (10ML VL) IV ONE (10:50)
[2021-05-07] MEDS ORDERED: IOPAMIDOL-370 125ML BTL INJ ONE (11:05)
[2021-05-07] MEDS ORDERED: SODIUM CHLORIDE 0.9% 1,000 ML IV SCH (11:30)
--- NOTE | 2021-05-07 12:02 | P.PN ---
Subjective Progress Note Date: 05/07/21 HISTORY OF PRESENT ILLNESS This is a 80-year-old female patient of Dr. Dr. Littlejohn with past medical history of hypothyroidism, rheumatoid arthritis. Patient complains of midsternal to lower sternal epigastric pain/tightness. She also still complains of ache in her bilateral shoulders. 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 Patient denies having any diarrhea. She came into [facility] emergency center for evaluation. She has been afebrile, heart rate 106, blood pressure 172/80, pulse ox 90% on room air. WBC 7.6, hemoglobin 11.2, platelet count 306. D-dimer 1.74. INR 1.0. Sodium 141, potassium 3.8, chloride 110, CO2 23, BUN 16 and creatinine 0.71. Blood sugar 112. Calcium 11.2. Magnesium 1.7, total bilirubin 0.3, AST 17, ALT 12, alkaline phosphatase 97. Troponin negative on 3 draws. Pro BNP 174. Albumin 3.6. Lipase 34. EKG sinus EKG is a sinus rhythm. Chest x-ray no active cardiac pulmonary disease. Patient was started on aspirin, morphine, IV fluids, to be admitted to the observation unit. Echocardiogram and CTA of the chest as well as cardiology consult added. 05/07: Patient continues to complain of back shoulder and arm pain. She states epigastric pain is decreased today. She has been seen by cardiology and i started patient on metoprolol tartrate 25 mg twice daily and scheduled for heart catheterization today. Patient has been afebrile, heart rate 93, blood pressure 116/74, pulse ox 96% on room air. Sodium 136, potassium 3.7, chloride 106, CO2 24, BUN 12 and creatinine 0.59. Triglycerides 80, cholesterol 160, LDL 93, HDL 51. Anticipate probable discharge home within 24 hours depending on results of stress test Echocardiogram reveals EF of 55-60% with borderline concentric left ventricular hypertrophy, trace to mild mitral regurgitation, mild pulmonary hypertension. REVIEW OF SYSTEMS Constitutional: No fever, no chills, no night sweats. No weight change. No weakness, fatigue or lethargy. No daytime sleepiness. EENT: No headache. No blurred vision or double vision, no loss of vision. No loss of Hearing, no ringing in the ears, no dizziness. No nasal drainage or congestion. No epistaxis. No sore throat. Lungs: No shortness of breath, cough, no sputum production. No wheezing. Cardiovascular: Reports chest pain, no lower extremity edema. No palpitations. No paroxysmal nocturnal dyspnea. No orthopnea. No lightheadedness or dizziness. No syncopal episodes. Abdominal: Reports epigastric abdominal pain. No nausea, vomiting. No diarrhea. No constipation. No bloody or tarry stools.. No loss of appetite. Genitourinary: No dysuria, increased frequency, urgency. No urinary retention. Musculoskeletal: No myalgias. No muscle weakness, no gait dysfunction, no frequent falls. No back pain. No neck pain. Bilateral shoulder pain. Chronic joint deformities secondary to rheumatoid arthritis. Leg shortened on left side. Integumentary: No wounds, no lesions. No rash or pruritus. No unusual bruising. No change in hair or nails. Neurologic: No aphasia. No facial droop. No change in mentation. No head injury. No headache. No paralysis. No paresthesia. Psychiatric: No depression. No anxiety. No mood swings. Endocrine: No abnormal blood sugars. No weight change. No excessive sweating or thirst. No cold intolerance. PHYSICAL EXAMINATION Gen: This is a 80-year-old female. She is resting on the ER stretcher and appears to be comfortable and in no acute distress. HEENT: Head is atraumatic, normocephalic. Pupils equal, round. Sclerae is anicteric. NECK: Supple. No JVD. No lymphadenopathy. No thyromegaly. LUNGS: Clear to auscultation. No wheezes or rhonchi. No intercostal retractions. HEART: Regular rate and rhythm. No murmur. ABDOMEN: Soft. Bowel sounds are present. No masses. Epigastric tenderness. EXTREMITIES: No pedal edema. No calf tenderness. NEUROLOGICAL: Patient is awake, alert and oriented x3. Cranial nerves 2 through 12 are grossly intact. ASSESSMENT AND PLAN 1. Chest pain with negative troponins. Cardiology consult, echocardiogram as above. Cardiology is planning for heart catheterization today. Metoprolol 25 mg twice daily started.. 2. Elevated d-dimer. CT angiogram of the chest ordered. 3. Epigastric tenderness possible gastritis. Patient started on Protonix 40 mg daily and hold ibuprofen. 4. Hypothyroidism. Continue levothyroxine 25 g daily. 5. Rheumatoid arthritis with joint deformities. Patient is normally on ibuprofen which will be on hold. 6. GI prophylaxis. Protonix. 7. DVT prophylaxis. Heparin subcu. DISCHARGE PLAN Home. Impression and plan of care have been directed as dictated by the signing physician. Tara Lagunas nurse practitioner acting as scribe for signing physician. Objective - Vital Signs Vital signs: Vital Signs Temp 98.1 F 05/07/21 07:00 Pulse 93 05/07/21 07:00 Resp 18 05/07/21 08:54 BP 168/74 05/07/21 07:00 Pulse Ox 96 05/07/21 07:00 Intake & Output 05/06/21 05/07/21 05/07/21 18:59 06:59 18:59 Intake Total 80 540 Output Total 300 Balance 80 240 Weight 67.132 kg Intake: Intake, IV Titration 80 Amount Sodium Chloride 0.9% 1, 80 000 ml @ 20 mls/hr IV . Q24H [facility] Rx#:[id number] Oral 540 Output: Urine 300 Other: Voiding Method External Catheter External Catheter # Voids 2 - Labs CBC & Chem 7: 05/06/21 01:13 05/07/21 03:43 Labs: Abnormal Lab Results - Last 24 Hours (Table) 05/07/21 Range/Units 03:43 Sodium 136 L (137-145) mmol/L
--- NOTE | 2021-05-07 12:41 | CC ---
CARDIAC CATHETERIZATION REPORT DATE OF SERVICE: 05/07/2021 PROCEDURE: Left heart catheterization, coronary angiography. PERFORMED BY: Dr. Jung Jung. Moderate conscious sedation time was 25 minutes. Patient was administered Versed. Oxygen saturation, hemodynamics and EKG were monitored closely. CLINICAL INFORMATION: Mrs. Tara Zimmer is a 80-year-old lady with a known history of hypertension and chronic lower extremity edema and atypical chest pain. She had a cardiac cath in 2013, which revealed mild noncritical disease. She came into the hospital with chest pain. Troponins and EKGs were unremarkable. However, she had an elevated D-dimer and a CT angio was negative for pulmonary embolism. I advised coronary angiography after due discussion regarding risks, benefits, and options. Quality of pain, however, was atypical. PROCEDURE NOTE: Under local anesthesia and strict aseptic precautions, a 6-Australian introducer was placed in the right radial artery. Using a JL3.5 and JR4 catheters, I performed coronary angiography and the same right Amairani catheter was used to check LV pressure but LV gram was not performed. The sheath was taken out and TR band applied as per protocol. The saturation of the fingers of the right hand was more than 94%. Patient tolerated the procedure well without complications. CARDIAC CATHETERIZATION FINDINGS: Left ventricular end-diastolic pressure was 12 mmHg without any gradient across aortic valve. CORONARY ANGIOGRAPHY FINDINGS: RIGHT CORONARY ARTERY: Technically a dominant vessel, very large caliber and distribution no significant disease. Distally bifurcates into a larger PLV, smaller PDA both of which supply a sizable amount of myocardium. No significant disease in the dominant RCA. 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 I compared the angiogram to 2013. The aneurysmal portion of the left main in the mid segment is new. Ostium has maybe a 20% lesion. There is no damping and after the aneurysmal segment, the distal left main is of normal caliber and bifurcates into LAD and circumflex. LEFT ANTERIOR DESCENDING CORONARY ARTERY: This vessel in the proximal portion has minor irregularities and there is a 40% narrowing after which there is another aneurysmal segment and then it gives off a diagonal branch. The diagonal branch is free of significant disease and the rest of the LAD is also free of significant disease. It curves over the apex to supply the inferoapical portion of the left ventricle. The diagonal branch is also free of significant disease. There is some calcification noted within the LAD. The proximal LAD therefore has a 40% narrowing. Mid LAD is aneurysmal, gives off a diagonal branch. Then the caliber of the LAD normalizes. It runs all the way to the apex, curves over the apex to supply the inferoapical portion of left ventricle. LEFT POSTERIOR CIRCUMFLEX CORONARY ARTERY is a tortuous, nondominant vessel. Minor irregularities. No significant disease. LEFT VENTRICULOGRAM was not performed. FINAL IMPRESSION: This patient has some progression of disease. Ostial left main probably has about 20% lesion with no damping. 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 Distal left main is normal caliber, bifurcates into LAD and circumflex. LAD has a 40% proximal lesion with mild to moderate calcification, aneurysmal LAD. The diagonal has no significant disease. Some calcification noted. LAD runs all the way to the apex supplying a sizable amount of myocardium. Circumflex is nondominant, tortuous. No significant disease. RCA dominant. No significant disease. Normal filling pressures. No gradient. RECOMMENDATIONS: For now, I am recommending aggressive medical therapy with atorvastatin and beta blockers as well. Findings were reviewed with the patient and her brother. I will pursue medical therapy and consider a stress test as outpatient and then make further recommendations. I do not believe the left main disease is critical. However, we will follow it with physiological testing as well. She will be discharged tomorrow. We will hydrate her. LORENZO / VIVIANA: [id number] /
[2021-05-07] MEDS: MORPHINE SULFATE 4 MG/ML SYRINGE IV PRN (21:54)
[2021-05-08] MEDS: LEVOTHYROXINE 25 MCG TAB PO SCH (06:20)
[2021-05-08] MEDS ORDERED: HEPARIN SODIUM,PORCINE 2,500 UNIT in SODIUM CHLORIDE 0.9% 250 ML IRRIGATION PRN (07:00)
[2021-05-08] MEDS ORDERED: HEPARIN SODIUM,PORCINE 10,000 UNIT in SODIUM CHLORIDE 0.9% 1,000 ML IRRIGATION PRN (07:00)
[2021-05-08 07:48] VITALS: BP 154/60; RESP 18; TEMP 97.6
[2021-05-08] MEDS: ASPIRIN 81 MG PO SCH (08:32)
[2021-05-08] MEDS: HEPARIN SODIUM,PORCINE/PF 5,000 UNIT/0.5 ML SYRINGE SQ SCH (08:32)
[2021-05-08] MEDS: METOPROLOL TARTRATE 25 MG TAB PO SCH (08:32)
[2021-05-08] MEDS: PANTOPRAZOLE 40 MG TABLET PO SCH (08:32)
[2021-05-08] MEDS: SODIUM CHLORIDE 0.9% 1,000 ML IV SCH (08:33)
[2021-05-08] MEDS ORDERED: ATORVASTATIN 80 MG TAB PO SCH (09:00)
[2021-05-08 09:13] LABS: Basophils # (A) 0.02 X 10*3/uL (0.00-0.10); Basophils % (A) 0.3 %; Eosinophils # (A) 0.07 X 10*3/uL (0.04-0.35); Eosinophils % (A) 1.2 %; HGB 9.8 g/dL (12.0-15.0); Lymphocytes # (A) 1.42 X 10*3/uL (0.90-5.00); Lymphocytes % (A) 23.8 %; MCH 27.4 pg (27.0-32.0); MCHC 31.6 g/dL (32.0-37.0); MCV 86.6 fL (80.0-97.0); Mean Platelet Volume 11.1 fL (9.5-12.2); Monocytes # (A) 0.67 X 10*3/uL (0.20-1.00); Monocytes % (A) 11.2 %; Neutrophils # (A) 3.77 X 10*3/uL (1.80-7.70); Neutrophils % (A) 63.2 %; Platelet Count 272 X 10*3/uL (140-440); RBC 3.58 X 10*6/uL (4.10-5.20); RDW 15.6 % (11.5-14.5); WBC 5.97 X 10*3/uL (4.50-10.00)
--- NOTE | 2021-05-08 09:28 | P.DS ---
Providers Date of admission: 05/06/21 01:53 Expected date of discharge: 05/08/21 Attending physician: Keron Littlejohn Consults: 05/06/21 11:15 Consult Physician Routine Consulting Provider: Radha Jung Consult Reason/Comments: CP Do you want consulting provider notified?: Yes Primary care physician: [facility] Course: HISTORY OF PRESENT ILLNESS This is a 80-year-old female patient of Dr. Dr. Littlejohn with past medical history of hypothyroidism, rheumatoid arthritis. Patient complains of midsternal to lower sternal epigastric pain/tightness. She also still complains of ache in her bilateral shoulders. 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 Patient denies having any diarrhea. She came into [facility] emergency center for evaluation. She has been afebrile, heart rate 106, blood pressure 172/80, pulse ox 90% on room air. WBC 7.6, hemoglobin 11.2, platelet count 306. D-dimer 1.74. INR 1.0. Sodium 141, potassium 3.8, chloride 110, CO2 23, BUN 16 and creatinine 0.71. Blood sugar 112. Calcium 11.2. Magnesium 1.7, total bilirubin 0.3, AST 17, ALT 12, alkaline phosphatase 97. Troponin negative on 3 draws. Pro BNP 174. Albumin 3.6. Lipase 34. EKG sinus EKG is a sinus rhythm. Chest x-ray no active cardiac pulmonary disease. Patient was started on aspirin, morphine, IV fluids, to be admitted to the observation unit. Echocardiogram and CTA of the chest as well as cardiology consult added. 05/07: Patient continues to complain of back shoulder and arm pain. She states epigastric pain is decreased today. She has been seen by cardiology and i started patient on metoprolol tartrate 25 mg twice daily and scheduled for heart catheterization today. Patient has been afebrile, heart rate 93, blood pressure 116/74, pulse ox 96% on room air. Sodium 136, potassium 3.7, chloride 106, CO2 24, BUN 12 and creatinine 0.59. Triglycerides 80, cholesterol 160, LDL 93, HDL 51. Anticipate probable discharge home within 24 hours depending on results of cath. Echocardiogram reveals EF of 55-60% with borderline concentric left ventricular hypertrophy, trace to mild mitral regurgitation, mild pulmonary hypertension. 05/08: Underwent heart catheterization which revealed some progression of disease. Ostial left main 20%, LAD 40% proximal lesion with mild to moderate calcification, aneurysmal LAD. Recommendations from cardiology is for medical management is Dr. Lombardo Patient denies having any chest pain at this time, feels that she is fair today. She has been afebrile, heart rate 98, blood pressure 154/60, pulse ox 90% on room air. WBC 5.9, hemoglobin 9.8, platelet count 272. Electrolytes and renal function are all within normal limit except for potassium of 3.3 which will be replaced prior to discharge. Patient will be discharged home today in stable condition. ASSESSMENT AND PLAN 1. Chest pain with negative troponins. 2. Elevated d-dimer. 3. Epigastric tenderness possible gastritis. 4. Hypothyroidism. 5. Rheumatoid arthritis with joint deformities. DISCHARGE PLAN Home. Impression and plan of care have been directed as dictated by the signing physician. Tara Lagunas nurse practitioner acting as scribe for signing physician. Patient Condition at Discharge: Good Plan - Discharge Summary Discharge Rx Participant: No New Discharge Prescriptions: New Atorvastatin [Lipitor] 80 mg PO DAILY #30 tab Metoprolol Tartrate [Lopressor] 12.5 mg PO BID #30 tab Pantoprazole [Protonix] 40 mg PO AC-BRKFST #30 tablet.dr Miranda Aspirin EC [Ecotrin Low Dose] 81 mg PO DAILY Acetaminophen [Tylenol] 325 mg PO Q6H PRN PRN Reason: Pain Or Fever > 100.5 Levothyroxine Sodium 25 mcg PO DAILY Ibuprofen [Motrin Ib] 200 mg PO Q6H PRN PRN Reason: Pain Or Fever > 100.5 Discharge Medication List Aspirin EC [Ecotrin Low Dose] 81 mg PO DAILY 01/06/21 [History] Acetaminophen [Tylenol] 325 mg PO Q6H PRN 05/06/21 [History] Ibuprofen [Motrin Ib] 200 mg PO Q6H PRN 05/06/21 [History] Levothyroxine Sodium 25 mcg PO DAILY 05/06/21 [History] Atorvastatin [Lipitor] 80 mg PO DAILY #30 tab 05/08/21 [Rx] Metoprolol Tartrate [Lopressor] 12.5 mg PO BID #30 tab 05/08/21 [Rx] Pantoprazole [Protonix] 40 mg PO AC-BRKFST #30 tablet. 05/08/21 [Rx] Follow up Appointment(s)/Referral(s): Radha Jung MD [STAFF PHYSICIAN] - 05/12/21 9:15 am Keron Littlejohn MD [Primary Care Provider] - 1 Week Discharge Disposition: HOME SELF-CARE
[2021-05-08 09:55] VITALS: PULSE 70
[2021-05-08 10:00] LABS: African American GFR (CKD) 95.5 (60.0-200.0); Anion Gap 9.3 mmol/L (4.00-12.00); BUN/Creat Ratio 18.57 Ratio (12.00-20.00); Calcium 9.3 mg/dL (8.7-10.3); Carbon Dioxide 21.7 mmol/L (21.6-31.8); Non-African American GFR(CKD) 82.4 (60.0-200.0); Potassium 3.3 mmol/L (3.5-5.5)
[2021-05-08] MEDS ORDERED: POTASSIUM CHLORIDE ER 20 MEQ TAB.ER PO STA (10:54)
--- NOTE | 2021-05-08 13:25 | P.PN ---
Subjective HISTORY OF PRESENTING ILLNESS This is a pleasant 80-year-old female past medical history significant for dyslipidemia, hypertension, hypothyroidism, bilateral lower extremity edema. She follows in the office with Dr. Jung. We have been asked to see in consultation for chest pain. Patient is seen and examined at bedside, no acute distress. She states that she has been having midsternal chest pain, middle upper back pain and bilateral leg pain for the past couple days. She is unable to describe her chest pain. Her pain was relieved with Tylenol at home. She also endorses associated shortness of breath, nausea, lightheadedness, dizziness, diaphoresis. She states when she palpates her neck or back it does worsen her pain. Also when she moves her neck and also worsens her pain. She denies any symptoms of orthopnea or PND. She denies any injury. She denies history of DE, diabetes, stroke. She denies any family history of heart di sease. She is a nonsmoker. She denies alcohol or illicit drug use. She states that she's had this pain before a couple years ago in 2019 she had similar pain she underwent dobutamine stress echo which was negative for induced ischemia. Most recent echocardiogram was 01/07/2021 which revealed EF 55%, mild to moderate pulmonary hypertension. EKG reveals sinus rhythm, heart rate 99, PACs. No significant STT wave abnormalities.Chest xray no active cardiopulmonary disease. CT chest revealed no evidence of pulmonary embolism, there is concern for thoracic aortic pathology, consider SHEA Echocardiogram 05/05/2021 revealed an EF of 55-60%, RV is mildly enlarged, LA is mildly dilated, aneurysmal anterior artery septum, trace to mild mitral regurgitation, mild pulmonary hypertension. 05/07/2021: Patient underwent cardiac catheterization with Dr. Jung which revealed ostial left main 20% lesion. LAD has 40% proximal lesion with mild to moderate calcification, aneurysmal LAD. Medical therapy recommended. 05/08/2021: Patient seen and examined at bedside, no acute distress. Blood pressure 154/60, heart rate 70, afebrile, maintaining oxygen saturation is on room air. Patient currently maintained on aspirin 81 mg daily, atorvastatin 80 mg daily, metoprolol tartrate 25 mg twice a day. Laboratory data reviewed WBC 5.9, hemoglobin 9.8, platelets 272, sodium 136, potassium 3.3, BUN 13, serum creatinine 0.7 PHYSICAL EXAMINATION CONSTITUTIONAL: No apparent distress. HEENT: Head is normocephalic. No JVD. No carotid bruit. CHEST EXAMINATION: Lungs are clear to auscultation. Chest wall tenderness with palpation. HEART EXAMINATION: Regular rate and rhythm. S1, S2 heard. No murmurs, gallops or rub. ABDOMEN: Soft, nontender. Positive bowel sounds. EXTREMITIES: 2+ peripheral pulses, no lower extremity edema and no calf tenderness. SKIN: Right radial cath site clean, dry, intact. No hematoma. 2+ pulses NEUROLOGIC EXAMINATION: Patient is awake, alert and oriented x3. ASSESSMENT Recurrent chest pain Shortness of breath Neck pain, upper back pain History of hypertension Hyperlipidemia Bilateral lower extremity edema Hypothyroidism Hypokalemia- replaced today PLAN From a cardiology perspective, patient stable to be discharged home. Patient continue aspirin, statin, metoprolol tartrate 12.5 mg twice a day. Patient follow-up with Dr. Jung as an outpatient, patient has a scheduled appointment on 05/12/2021 at 9:15 AM. Nurse Practitioner note has been reviewed, I agree with a documented findings and plan of care. Patient was seen and examined. Objective - Vital Signs Vital signs: Vital Signs Temp 97.6 F 05/08/21 07:00 Pulse 70 05/08/21 13:06 Resp 18 05/08/21 13:06 BP 154/60 05/08/21 07:00 Pulse Ox 98 05/08/21 07:00 Intake & Output 05/07/21 05/08/21 05/08/21 18:59 06:59 18:59 Intake Total 451 264 3125 Output Total 086 242 3744 Balance 250 -100 780 Intake: IV 048 177 4340 Sodium Chloride 0.9% 1, 564 132 5405 000 ml @ 100 mls/hr IV . Q10H [facility] Rx#:[id number] Oral 780 Output: Urine 179 220 6663 Other: Voiding Method External Catheter External Catheter External Catheter - Labs CBC & Chem 7: 05/08/21 05:33 05/08/21 05:33 Labs: Abnormal Lab Results - Last 24 Hours (Table) 05/08/21 05/08/21 Range/Units 05:33 05:33 RBC 3.58 L (4.10-5.20) X 10*6/uL Hgb 9.8 L (12.0-15.0) g/dL Hct 31.0 L (37.2-46.3) % MCHC 31.6 L (32.0-37.0) g/dL RDW 15.6 H (11.5-14.5) % Potassium 3.3 L (3.5-5.5) mmol/L
== END 2021-05-08 14:23 | disposition home or self-care (01) ==
LOC: EC 00:55 → 6NMEDSUR 01:53
PROVIDERS: ADMIT Internal Medicine Geriatric Medicine; ATTEND Internal Medicine Geriatric Medicine
DX: R07.89 Other chest pain (principal); R07.2 Precordial pain; R79.89 Other specified abnormal findings of blood chemistry; R10.13 Epigastric pain; E03.9 Hypothyroidism, unspecified; M06.9 Rheumatoid arthritis, unspecified; M54.9 Dorsalgia, unspecified; M25.512 Pain in left shoulder; M25.511 Pain in right shoulder; M25.562 Pain in left knee; M25.561 Pain in right knee; G89.29 Other chronic pain; R60.0 Localized edema; M54.6 Pain in thoracic spine; R06.02 Shortness of breath; R42 Dizziness and giddiness; R61 Generalized hyperhidrosis; M79.603 Pain in arm, unspecified; E87.6 Hypokalemia; R11.0 Nausea; R00.2 Palpitations; M54.2 Cervicalgia; F41.9 Anxiety disorder, unspecified; I27.20 Pulmonary hypertension, unspecified; E78.5 Hyperlipidemia, unspecified; I10 Essential (primary) hypertension; M19.90 Unspecified osteoarthritis, unspecified site; Z87.442 Personal history of urinary calculi; Z79.82 Long term (current) use of aspirin; Z79.890 Hormone replacement therapy; Z88.0 Allergy status to penicillin; Z90.49 Acquired absence of other specified parts of digestive tract; Z82.0 Family history of epilepsy and other diseases of the nervous system; Z81.8 Family history of other mental and behavioral disorders
CPT/HCPCS: 96376 ×2; 96361 ×3; 96372; 93005 ×2; 96374; 99285; 36415; 93306; 93458; 85379; 83880; 80061; 80053; 80048 ×2; 82550; 83690; 83735; 84484; 85025 ×2; 85610; 85730; 71045; 71275; G0378 ×3; C1894; J2250; J2270 ×2; J2001; J1644 ×4; Q9967 ×2

== ENCOUNTER 2021-06-04 10:01 | Emergency (ER) | payer MEDICARE ==
--- NOTE | 2021-06-04 10:35 | ED ---
General Adult HPI - General Chief complaint: Upper Respiratory Infection Stated complaint: Cough Time Seen by Provider: 06/04/21 10:18 Source: patient, RN notes reviewed Mode of arrival: wheelchair Limitations: no limitations - History of Present Illness Initial comments: Patient is a pleasant 80-year-old female presenting to the emergency Department with cough. Patient has onset of symptoms around 2 days ago. Symptoms worsened today. Patient does have some discomfort of her thorax with cough only. Otherwise patient denies chest pain. Patient is vaccinated however has recent exposure of family member to COVID-19 infection. No fevers. Patient has felt fatigued and achy. No nausea or diarrhea. - Related Data Home Medications Medication Instructions Recorded Confirmed Aspirin EC [Ecotrin Low Dose] 81 mg PO DAILY 01/06/21 06/04/21 Acetaminophen [Tylenol] 325 mg PO Q6H PRN 05/06/21 06/04/21 Ibuprofen [Motrin Ib] 200 mg PO Q6H PRN 05/06/21 06/04/21 Levothyroxine Sodium 25 mcg PO DAILY 05/06/21 06/04/21 Previous Rx's Medication Instructions Recorded Atorvastatin [Lipitor] 80 mg PO DAILY #30 tab 05/08/21 Metoprolol Tartrate [Lopressor] 12.5 mg PO BID #30 tab 05/08/21 Pantoprazole [Protonix] 40 mg PO AC-BRKFST #30 tablet. 05/08/21 Allergies Allergy/AdvReac Type Severity Reaction Status Date / Time Penicillins Allergy Swelling Verified 06/04/21 11:49 Review of Systems ROS Statement: Those systems with pertinent positive or pertinent negative responses have been documented in the HPI. ROS Other: All systems not noted in ROS Statement are negative. Constitutional: Denies: fever, chills Eyes: Denies: eye pain ENT: Denies: ear pain Respiratory: Reports: cough Cardiovascular: Reports: as per HPI Endocrine: Reports: fatigue Gastrointestinal: Denies: abdominal pain Genitourinary: Denies: dysuria Musculoskeletal: Denies: back pain Skin: Denies: rash Neurological: Denies: weakness Past Medical History Past Medical History: Chest Pain / Angina, Osteoarthritis (OA), Thyroid Disorder Additional Past Medical History / Comment(s): kidney stones, cervical pain, History of Any Multi-Drug Resistant Organisms: None Reported Past Surgical History: Appendectomy, Orthopedic Surgery Additional Past Surgical History / Comment(s): mult. surgeries left leg for shattered femur, PAIN CLINIC PROCEDURES Past Anesthesia/Blood Transfusion Reactions: Motion Sickness Past Psychological History: No Psychological Hx Reported Smoking Status: Never smoker Past Alcohol Use History: None Reported Past Drug Use History: None Reported - Past Family History Mother Family Medical History: No Reported History General Exam Limitations: no limitations General appearance: alert, in no apparent distress Head exam: Present: normocephalic Eye exam: Present: normal appearance Neck exam: Present: normal inspection. Absent: meningismus Respiratory exam: Present: normal lung sounds bilaterally Cardiovascular Exam: Present: regular rate, normal rhythm GI/Abdominal exam: Present: soft. Absent: tenderness Extremities exam: Present: normal inspection. Absent: pedal edema, calf tenderness Neurological exam: Present: alert Psychiatric exam: Present: normal affect, normal mood Skin exam: Present: normal color Course Vital Signs 06/04/21 06/04/21 10:08 11:30 Temperature 97.8 F Pulse Rate 84 67 Respiratory 18 22 Rate Blood Pressure 159/77 168/71 O2 Sat by Pulse 99 Oximetry EKG Findings - EKG Comments: EKG Findings:: Normal sinus rhythm with rate of 72. IL 174. QRS 82. QTC 398. QT 364. Normal axis. Normal QRS. No acute ST change. Medical Decision Making - Medical Decision Making Patient reevaluated and resting comfortable in bed. Patient pulse ox remains 99%. Patient and family updated. Patient consents to monoclonal antibodies. - Lab Data Result diagrams: 06/04/21 10:53 06/04/21 10:53 Lab Results 06/04/21 06/04/21 06/04/21 Range/Units 10:53 10:53 10:53 WBC 5.4 (3.8-10.6) k/uL RBC 4.14 (3.80-5.40) m/uL Hgb 11.9 (11.4-16.0) gm/dL Hct 36.9 (34.0-46.0) % MCV 89.1 (80.0-100.0) fL MCH 28.8 (25.0-35.0) pg MCHC 32.3 (31.0-37.0) g/dL RDW 16.4 H (11.5-15.5) % Plt Count 254 (150-450) k/uL MPV 7.9 Neutrophils % 73 % Lymphocytes % 18 % Monocytes % 5 % Eosinophils % 2 % Basophils % 0 % Neutrophils # 3.9 (1.3-7.7) k/uL Lymphocytes # 0.9 L (1.0-4.8) k/uL Monocytes # 0.3 (0-1.0) k/uL Eosinophils # 0.1 (0-0.7) k/uL Basophils # 0.0 (0-0.2) k/uL Hypochromasia Slight Anisocytosis Slight PT 10.6 (9.0-12.0) sec INR 1.0 (<1.2) APTT 24.1 (22.0-30.0) sec Sodium 140 (137-145) mmol/L Potassium 4.4 (3.5-5.1) mmol/L Chloride 111 H (98-107) mmol/L Carbon Dioxide 22 (22-30) mmol/L Anion Gap 7 mmol/L BUN 17 (7-17) mg/dL Creatinine 0.79 (0.52-1.04) mg/dL Est GFR (CKD-EPI)AfAm 83 (>60 ml/min/1.73 sqM) Est GFR (CKD-EPI)NonAf 72 (>60 ml/min/1.73 sqM) Glucose 92 (74-99) mg/dL Plasma Lactic Acid Mark (0.7-2.0) mmol/L Calcium 10.9 H (8.4-10.2) mg/dL Magnesium 1.8 (1.6-2.3) mg/dL Total Bilirubin 0.2 (0.2-1.3) mg/dL AST 23 (14-36) U/L ALT 17 (4-34) U/L Alkaline Phosphatase 138 H (38-126) U/L Lactate Dehydrogenase 358 (313-618) U/L Troponin I (0.000-0.034) ng/mL C-Reactive Protein 2.7 H (<1.0) mg/dL NT-Pro-B Natriuret Pep pg/mL Total Protein 6.7 (6.3-8.2) g/dL Albumin 3.6 (3.5-5.0) g/dL Coronavirus (PCR) (Not Detectd) 06/04/21 06/04/21 06/04/21 Range/Units 10:53 10:53 10:53 WBC (3.8-10.6) k/uL RBC (3.80-5.40) m/uL Hgb (11.4-16.0) gm/dL Hct (34.0-46.0) % MCV (80.0-100.0) fL MCH (25.0-35.0) pg MCHC (31.0-37.0) g/dL RDW (11.5-15.5) % Plt Count (150-450) k/uL MPV Neutrophils % % Lymphocytes % % Monocytes % % Eosinophils % % Basophils % % Neutrophils # (1.3-7.7) k/uL Lymphocytes # (1.0-4.8) k/uL Monocytes # (0-1.0) k/uL Eosinophils # (0-0.7) k/uL Basophils # (0-0.2) k/uL Hypochromasia Anisocytosis PT (9.0-12.0) sec INR (<1.2) APTT (22.0-30.0) sec Sodium (137-145) mmol/L Potassium (3.5-5.1) mmol/L Chloride (98-107) mmol/L Carbon Dioxide (22-30) mmol/L Anion Gap mmol/L BUN (7-17) mg/dL Creatinine (0.52-1.04) mg/dL Est GFR (CKD-EPI)AfAm (>60 ml/min/1.73 sqM) Est GFR (CKD-EPI)NonAf (>60 ml/min/1.73 sqM) Glucose (74-99) mg/dL Plasma Lactic Acid Mark 1.1 (0.7-2.0) mmol/L Calcium (8.4-10.2) mg/dL Magnesium (1.6-2.3) mg/dL Total Bilirubin (0.2-1.3) mg/dL AST (14-36) U/L ALT (4-34) U/L Alkaline Phosphatase (38-126) U/L Lactate Dehydrogenase (313-618) U/L Troponin I <0.012 (0.000-0.034) ng/mL C-Reactive Protein (<1.0) mg/dL NT-Pro-B Natriuret Pep 239 pg/mL Total Protein (6.3-8.2) g/dL Albumin (3.5-5.0) g/dL Coronavirus (PCR) (Not Detectd) 06/04/21 Range/Units 10:53 WBC (3.8-10.6) k/uL RBC (3.80-5.40) m/uL Hgb (11.4-16.0) gm/dL Hct (34.0-46.0) % MCV (80.0-100.0) fL MCH (25.0-35.0) pg MCHC (31.0-37.0) g/dL RDW (11.5-15.5) % Plt Count (150-450) k/uL MPV Neutrophils % % Lymphocytes % % Monocytes % % Eosinophils % % Basophils % % Neutrophils # (1.3-7.7) k/uL Lymphocytes # (1.0-4.8) k/uL Monocytes # (0-1.0) k/uL Eosinophils # (0-0.7) k/uL Basophils # (0-0.2) k/uL Hypochromasia Anisocytosis PT (9.0-12.0) sec INR (<1.2) APTT (22.0-30.0) sec Sodium (137-145) mmol/L Potassium (3.5-5.1) mmol/L Chloride (98-107) mmol/L Carbon Dioxide (22-30) mmol/L Anion Gap mmol/L BUN (7-17) mg/dL Creatinine (0.52-1.04) mg/dL Est GFR (CKD-EPI)AfAm (>60 ml/min/1.73 sqM) Est GFR (CKD-EPI)NonAf (>60 ml/min/1.73 sqM) Glucose (74-99) mg/dL Plasma Lactic Acid Mark (0.7-2.0) mmol/L Calcium (8.4-10.2) mg/dL Magnesium (1.6-2.3) mg/dL Total Bilirubin (0.2-1.3) mg/dL AST (14-36) U/L ALT (4-34) U/L Alkaline Phosphatase (38-126) U/L Lactate Dehydrogenase (313-618) U/L Troponin I (0.000-0.034) ng/mL C-Reactive Protein (<1.0) mg/dL NT-Pro-B Natriuret Pep pg/mL Total Protein (6.3-8.2) g/dL Albumin (3.5-5.0) g/dL Coronavirus (PCR) Detected A (Not Detectd) - Radiology Data Radiology results: image reviewed (Chest x-ray shows no acute process) Disposition Clinical Impression: COVID-19 Disposition: HOME SELF-CARE Condition: Stable Instructions (If sedation given, give patient instructions): Upper Respiratory Infection (ED), Fever in Adults (ED), Coronavirus Disease 2019 (COVID-19) Additional Instructions: [id number] vitamin C, vitamin D, and zinc. Melatonin at bedtime. These follow-up with primary care physician in the next couple of days for recheck. Return for difficulty breathing, uncontrolled fever, weakness, vomiting, worsening symptoms or other concerns. Is patient prescribed a controlled substance at d/c from ED?: No Referrals: Keron Littlejohn MD [Primary Care Provider] - 1-2 days Time of Disposition: 13:23
[2021-06-04 11:14] LABS: Anisocytosis Slight; Basophils % (A) 0 %; Eosinophils # (A) 0.1 k/uL (0-0.7); Eosinophils % (A) 2 %; HCT 36.9 % (34.0-46.0); HGB 11.9 gm/dL (11.4-16.0); Hypochromasia Slight; Lymphocytes # (A) 0.9 k/uL (1.0-4.8); Lymphocytes % (A) 18 %; MCH 28.8 pg (25.0-35.0); MCHC 32.3 g/dL (31.0-37.0); MCV 89.1 fL (80.0-100.0); Mean Platelet Volume 7.9; Monocytes # (A) 0.3 k/uL (0-1.0); Monocytes % (A) 5 %; Neutrophils # (A) 3.9 k/uL (1.3-7.7); Neutrophils % (A) 73 %; Platelet Count 254 k/uL (150-450); RBC 4.14 m/uL (3.80-5.40); RDW 16.4 % (11.5-15.5); WBC 5.4 k/uL (3.8-10.6)
[2021-06-04 11:20] LABS: Partial Thromboplastin Time 24.1 sec (22.0-30.0); Prothrombin Time 10.6 sec (9.0-12.0); Total Protein 6.7 g/dL (6.3-8.2)
[2021-06-04 11:24] LABS: Albumin 3.6 g/dL (3.5-5.0); C Reactive Protein 2.7 mg/dL (<1.0); Calcium 10.9 mg/dL (8.4-10.2); Magnesium 1.8 mg/dL (1.6-2.3); Potassium 4.4 mmol/L (3.5-5.1); Total Bilirubin 0.2 mg/dL (0.2-1.3)
--- NOTE | 2021-06-04 11:39 | XR ---
EXAMINATION TYPE: XR chest 1V portable DATE OF EXAM: 06/04/2021 COMPARISON: NONE HISTORY: Cough TECHNIQUE: Single frontal view of the chest is obtained. FINDINGS: There is no focal air space opacity, pleural effusion, or pneumothorax seen. The cardiac silhouette size is within normal limits. The osseous structures are intact. Mild hyperinflation. Di ffuse osteopenia with arthropathy of the shoulders. IMPRESSION: No acute process.
[2021-06-04] MEDS ORDERED: SODIUM CHLORIDE 0.9% 50 ML IVPB ONE (13:45)
[2021-06-04] MEDS ORDERED: CASIRIVIMAB (REGN10933) (EUA) 600 MG, IMDEVIMAB (REGN10987) (EUA) 600 MG in SODIUM CHLO... IVPB ONE (14:00)
[2021-06-04 16:13] VITALS: TEMP 98
[2021-06-04 16:48] VITALS: BP 156/84; PULSE 71; RESP 22
[2021-06-05 09:36] LABS: Ferritin 121.7 ng/mL (10.0-291.0)
== END 2021-06-04 16:48 | disposition home or self-care (01) ==
LOC: EC 10:01
DX: U07.1 COVID-19 (principal); M19.90 Unspecified osteoarthritis, unspecified site; Z79.890 Hormone replacement therapy; Z79.82 Long term (current) use of aspirin; Z79.1 Long term (current) use of non-steroidal anti-inflammatories (NSAID); Z88.0 Allergy status to penicillin
CPT/HCPCS: 36415; 71045; 80053; 82728; 83605; 83615; 83735; 83880; 84145; 84484; 85025; 85610; 85730; 86140; 87040; 87635; 93005; 96365; 99284

== ENCOUNTER 2022-04-02 19:46 | Observation (INO) | payer MEDICARE ==
[2022-04-02] MEDS ORDERED: SODIUM CHLORIDE 0.9% 1,000 ML IV STA (20:21)
--- NOTE | 2022-04-02 21:24 | ED ---
GI Bleed HPI - General Chief complaint: GI Bleed Stated complaint: blood in stool Time Seen by Provider: 04/02/22 20:03 Source: patient Mode of arrival: EMS Limitations: no limitations - History of Present Illness Initial comments: Patient is an 81-year-old female who presents to the emergency department with concern for blood in her stool. Patient states that this morning she felt dizzy as if the room was spinning so she stayed in bed. Patient needs to have a bowel movement so she went in a bedpan and noticed her stool was black. She denies use of blood thinners, NSAIDs, iron supplements, and Pepto-Bismol. Patient has not had any further bleeding or bowel movements since her first one this morning. Patient still feels dizzy, worsened with movement. Patient also reports mild tenderness of her lower abdomen. Patient states the pain is min imal however she spoke with her primary care provider Dr. Littlejohn regarding her symptoms request she comes to the emergency department for an abdominal CT. Patient denies chest pain, shortness of breath, nausea, and sweating. Denies history of heart attack, hypertension, diabetes, and stroke. Admits to history of hypercholesterolemia. Denies family history of cardiac disease. Denies possibility use of tobacco. Denies alcohol use. MD complaint: blood streaked emesis - Related Data Home Medications Medication Instructions Recorded Confirmed Acetaminophen [Tylenol] 650 mg PO Q6H PRN 05/06/21 04/02/22 Levothyroxine Sodium 25 mcg PO DAILY 05/06/21 04/02/22 Previous Rx's Medication Instructions Recorded Meclizine [Antivert] 12.5 mg PO BID PRN #14 tablet 04/02/22 Allergies Allergy/AdvReac Type Severity Reaction Status Date / Time Penicillins Allergy Rash/Hives Verified 04/02/22 21:22 all over body Review of Systems ROS Statement: Those systems with pertinent positive or pertinent negative responses have been documented in the HPI. ROS Other: All systems not noted in ROS Statement are negative. Past Medical History Past Medical History: Chest Pain / Angina, Osteoarthritis (OA), Thyroid Disorder Additional Past Medical History / Comment(s): kidney stones, cervical pain, History of Any Multi-Drug Resistant Organisms: None Reported Past Surgical History: Appendectomy, Orthopedic Surgery Additional Past Surgical History / Comment(s): mult. surgeries left leg for shattered femur, PAIN CLINIC PROCEDURES Past Anesthesia/Blood Transfusion Reactions: Motion Sickness Past Psychological History: No Psychological Hx Reported Smoking Status: Never smoker Past Alcohol Use History: None Reported Past Drug Use History: None Reported - Past Family History Mother Family Medical History: No Reported History General Exam Limitations: no limitations General appearance: alert, in no apparent distress Head exam: Present: atraumatic, normocephalic, normal inspection Eye exam: Present: normal appearance, PERRL, EOMI. Absent: scleral icterus, conjunctival injection, periorbital swelling Neck exam: Present: normal inspection, full ROM Respiratory exam: Present: normal lung sounds bilaterally. Absent: respiratory distress, wheezes, rales, rhonchi, stridor Cardiovascular Exam: Present: regular rate, normal rhythm, normal heart sounds. Absent: systolic murmur, diastolic murmur, rubs, gallop, clicks GI/Abdominal exam: Present: soft, tenderness (mild in LLQ ), normal bowel sounds. Absent: distended, guarding, rebound, rigid Rectal exam: Present: normal rectal tone, fecal impaction Neurological exam: Present: alert, oriented X3, CN II-XII intact Psychiatric exam: Present: normal affect, normal mood Skin exam: Present: warm, dry, intact, normal color. Absent: rash Medical Decision Making - Medical Decision Making This is an 81-year-old female presents with one episode of black stool and consistent dizziness today. Thorough history and examination were performed. Patient is well-appearing and in no apparent distress. She states she has never experienced dark stools or dizziness before. No chest pain or shortness of breath. Patient also has minimal lower abdominal pain. There is mild tenderness in the left lower quadrant. She spoke with Dr. Littlejohn prior to arrival who recommended abdominal CT. I do suspect there is a fecal impaction based on rectal exam. No hemorrhoids felt or visualized. I will obtain laboratory studies and CT of the abdomen and pelvis with contrast. I will also give Meclizine for dizziness. Stool occult blood is negative. Hemoglobin is normal at 11.4. Troponin is within normal limits. Other laboratory studies are unremarkable. EKG shows normal sinus rhythm without ST or T-wave changes. Computed tomography scan of the abdomen and pelvis reveals fecal impaction. Results discussed with patient. I did perform fecal disimpaction. Patient reports improvement of dizziness since taking meclizine. I will discharge her with meclizine prescription as well as GoLytely to flush out her GI system. She is instructed to follow-up with primary care provider in one to 2 days for further evaluation and management of her dizziness. Return parameters discussed. Patient verbalizes understanding and is agreeable to this plan. Dr. Gill is my attending. - Lab Data Result diagrams: 04/02/22 21:16 04/02/22 21:16 Lab Results 04/02/22 04/02/22 04/02/22 Range/Units 21:16 21:16 21:16 WBC 6.2 (3.8-10.6) k/uL RBC 4.04 (3.80-5.40) m/uL Hgb 11.4 (11.4-16.0) gm/dL Hct 37.2 (34.0-46.0) % MCV 92.0 (80.0-100.0) fL MCH 28.2 (25.0-35.0) pg MCHC 30.7 L (31.0-37.0) g/dL RDW 15.7 H (11.5-15.5) % Plt Count 273 (150-450) k/uL MPV 7.6 Neutrophils % 78 % Lymphocytes % 15 % Monocytes % 5 % Eosinophils % 0 % Basophils % 0 % Neutrophils # 4.8 (1.3-7.7) k/uL Lymphocytes # 0.9 L (1.0-4.8) k/uL Monocytes # 0.3 (0-1.0) k/uL Eosinophils # 0.0 (0-0.7) k/uL Basophils # 0.0 (0-0.2) k/uL PT 11.2 (9.0-12.0) sec INR 1.0 (<1.2) APTT 24.9 (22.0-30.0) sec Sodium 136 L (137-145) mmol/L Potassium 4.5 (3.5-5.1) mmol/L Chloride 109 H (98-107) mmol/L Carbon Dioxide 22 (22-30) mmol/L Anion Gap 5 mmol/L BUN 16 (7-17) mg/dL Creatinine 0.73 (0.52-1.04) mg/dL Est GFR (CKD-EPI)AfAm >90 (>60 ml/min/1.73 sqM) Est GFR (CKD-EPI)NonAf 78 (>60 ml/min/1.73 sqM) Glucose 92 (74-99) mg/dL Calcium 10.4 H (8.4-10.2) mg/dL Total Bilirubin 0.5 (0.2-1.3) mg/dL AST 16 (14-36) U/L ALT 9 (4-34) U/L Alkaline Phosphatase 95 (38-126) U/L Troponin I (0.000-0.034) ng/mL Total Protein 6.7 (6.3-8.2) g/dL Albumin 3.5 (3.5-5.0) g/dL Lipase 29 (23-300) U/L Stool Occult Blood (Negative) Blood Type Blood Type Recheck Bld Type Recheck Status Antibody Screen Spec Expiration Date 04/02/22 04/02/22 04/02/22 Range/Units 21:16 21:16 21:37 WBC (3.8-10.6) k/uL RBC (3.80-5.40) m/uL Hgb (11.4-16.0) gm/dL Hct (34.0-46.0) % MCV (80.0-100.0) fL MCH (25.0-35.0) pg MCHC (31.0-37.0) g/dL RDW (11.5-15.5) % Plt Count (150-450) k/uL MPV Neutrophils % % Lymphocytes % % Monocytes % % Eosinophils % % Basophils % % Neutrophils # (1.3-7.7) k/uL Lymphocytes # (1.0-4.8) k/uL Monocytes # (0-1.0) k/uL Eosinophils # (0-0.7) k/uL Basophils # (0-0.2) k/uL PT (9.0-12.0) sec INR (<1.2) APTT (22.0-30.0) sec Sodium (137-145) mmol/L Potassium (3.5-5.1) mmol/L Chloride (98-107) mmol/L Carbon Dioxide (22-30) mmol/L Anion Gap mmol/L BUN (7-17) mg/dL Creatinine (0.52-1.04) mg/dL Est GFR (CKD-EPI)AfAm (>60 ml/min/1.73 sqM) Est GFR (CKD-EPI)NonAf (>60 ml/min/1.73 sqM) Glucose (74-99) mg/dL Calcium (8.4-10.2) mg/dL Total Bilirubin (0.2-1.3) mg/dL AST (14-36) U/L ALT (4-34) U/L Alkaline Phosphatase (38-126) U/L Troponin I <0.012 (0.000-0.034) ng/mL Total Protein (6.3-8.2) g/dL Albumin (3.5-5.0) g/dL Lipase (23-300) U/L Stool Occult Blood Negative (Negative) Blood Type O Positive Blood Type Recheck No Previous Record Bld Type Recheck Status CABO Indicated Antibody Screen NEGATIVE Spec Expiration Date 04/05/20222315 Disposition Clinical Impression: Dizziness, Fecal impaction Disposition: HOME SELF-CARE Condition: Good Instructions (If sedation given, give patient instructions): High Fiber Diet (ED), Dizziness (ED), Fecal Impaction (ED) Additional Instructions: Please take meclizine as directed. Take the GoLytely as directed tomorrow to flush out your gastrointestinal system. Increase fluid and fiber intake to prevent stool build up in the rectum. Follow-up with primary care provider in one to 2 days for further evaluation and management of your dizziness. Return to the emergency department experience new, concerning, or worsening symptoms. Prescriptions: Meclizine [Antivert] 12.5 mg PO BID PRN #14 tablet PRN Reason: Vertigo Is patient prescribed a controlled substance at d/c from ED?: No Referrals: Keron Littlejohn MD [Primary Care Provider] - 1-2 days Time of Disposition: 23:14
[2022-04-02] MEDS ORDERED: MECLIZINE 12.5 MG TAB PO STA (21:26)
[2022-04-02 21:45] LABS: Basophils % (A) 0 %; Eosinophils % (A) 0 %; HCT 37.2 % (34.0-46.0); HGB 11.4 gm/dL (11.4-16.0); Lymphocytes # (A) 0.9 k/uL (1.0-4.8); Lymphocytes % (A) 15 %; MCH 28.2 pg (25.0-35.0); MCHC 30.7 g/dL (31.0-37.0); Mean Platelet Volume 7.6; Monocytes # (A) 0.3 k/uL (0-1.0); Monocytes % (A) 5 %; Neutrophils # (A) 4.8 k/uL (1.3-7.7); Neutrophils % (A) 78 %; Platelet Count 273 k/uL (150-450); RBC 4.04 m/uL (3.80-5.40); RDW 15.7 % (11.5-15.5); WBC 6.2 k/uL (3.8-10.6)
[2022-04-02 21:58] LABS: Potassium 4.5 mmol/L (3.5-5.1)
[2022-04-02 21:59] LABS: ALT 9 U/L (4-34); AST 16 U/L (14-36); African American GFR (CKD) >90 (>60 ml/min/1.73 sqM); Albumin 3.5 g/dL (3.5-5.0); Alkaline Phosphatase 95 U/L (38-126); Anion Gap 5 mmol/L; Blood Urea Nitrogen 16 mg/dL (7-17); Calcium 10.4 mg/dL (8.4-10.2); Carbon Dioxide 22 mmol/L (22-30); Chloride 109 mmol/L (98-107); Glucose 92 mg/dL (74-99); Lipase 29 U/L (23-300); Non-African American GFR(CKD) 78 (>60 ml/min/1.73 sqM); Sodium 136 mmol/L (137-145); Total Bilirubin 0.5 mg/dL (0.2-1.3); Total Protein 6.7 g/dL (6.3-8.2)
[2022-04-02 22:04] LABS: Partial Thromboplastin Time 24.9 sec (22.0-30.0); Prothrombin Time 11.2 sec (9.0-12.0)
--- NOTE | 2022-04-02 22:41 | CT ---
EXAMINATION TYPE: CT abdomen pelvis w con DATE OF EXAM: 04/02/2022 COMPARISON: 01/24/2021 HISTORY: LLQ CT DLP: 665.7 mGycm Automated exposure control for dose reduction was used. CONTRAST: Performed with IV Contrast, patient injected with 100 mL of Isovue 300. Images obtained from the diaphragm to the floor the pelvis with IV contrast. There is mild subsegmental atelectasis at the lung bases. Heart appears borderline enlarged. No peric ardial effusion. The stomach is intact. Liver and spleen are intact. There is no pancreatic mass. Gal lbladder appears normal. There is no adrenal mass. Kidneys have normal size and contour. No hydronephrosis. Ureters are not di lated. There is normal enhancement of the kidneys. Delayed images show normal renal excretion. Abdomi nal aorta is atheromatous. There is no retroperitoneal adenopathy. Bladder distends smoothly. There i s no inguinal hernia. There is some retained fecal material in the rectum. There is no mesenteric edema. No ascites or free air. No sign of a bowel obstruction. The terminal il eum appears normal. Appendix not seen. No sign thickened appendix. The bony pelvis appears intact. Th ere is hip joint space narrowing and acetabular spurring. No fracture seen. There is left hip nailing noted. There is large degenerative cyst in the right femoral head. IMPRESSION: Subsegmental atelectasis and scarring at the lung bases without change. Atherosclerotic vascular disease. Rectal fecal impaction. This appears new compared to old exam.
[2022-04-02] MEDS ORDERED: PEG 3350-NA SULF,BICARB,CL/KCL 4,000 ML BOTTLE PO ONE (23:12)
[2022-04-03] MEDS ORDERED: ACETAMINOPHEN TAB 325 MG TAB PO PRN (00:10)
[2022-04-03] MEDS ORDERED: SODIUM CHLORIDE 0.9% 1,000 ML IV SCH (00:15)
[2022-04-03 08:27] VITALS: BP 145/69; PULSE 75; RESP 18; TEMP 96.7
[2022-04-03] MEDS ORDERED: NON FORMULARY DRUG (Acetaminophen [Tylenol] 325 MG Capsule) PO PRN (10:55)
--- NOTE | 2022-04-03 11:00 | P.HPIM ---
History of Present Illness H&P Date: 04/03/22 Please utilizes for both H&P and discharge summary This is an 81-year-old patient of Dr. Littlejohn with past medical history significant for hyperthyroidism, rheumatoid arthritis. Patient complains of ab dominal pain and blood in her stool. Patient states that she was feeling dizzy yesterday and spinning while she was in bed. She did have a bowel movement which showed black stool. Patient denies any blood thinners and said iron supplements. Patient did not have any further bleeding or bowel movement. She did call Dr. Berry who advised her to come in for an evaluation. CT in the ER showed impaction. Patient had a bowel movement in the emergency room which relieved her abdominal discomfort. At this time patient is resting complained that. No complaints of dizziness or lightheadedness. No bouts of diarrhea or constipation at this time. No longer having black tarry or bloody stools. Patient denies nausea or vomiting. WBC 6.2, hemoglobin 11.4, sodium 136, potassium 4.5, BUN 16, creatinine 0.73, stool occult blood was negative. Review Of Systems: Constitutional: No fever, no chills, no night sweats. No weight change. No weakness, fatigue or lethargy. No daytime sleepiness. EENT: No headache. No blurred vision or double vision, no loss of vision. No loss of Hearing, no ringing in the ears, no dizziness. No nasal drainage or congestion. No epistaxis. No sore throat. Lungs: No shortness of breath, cough, no sputum production. No wheezing. Cardiovascular: No chest pain, no lower extremity edema. No palpitations. No paroxysmal nocturnal dyspnea. No orthopnea. No lightheadedness or dizziness. No syncopal episodes. Abdominal: no abdominal discomfort. No nausea, vomiting. no diarrhea. No constipation. No bloody or tarry stools. no loss of appetite. Genitourinary: No dysuria, increased frequency, urgency. No urinary retention. Musculoskeletal: No myalgias. No muscle weakness, no gait dysfunction, no frequent falls. No back pain. No neck pain. Integumentary: No wounds, no lesions. No rash or pruritus. No unusual bruisin g. No change in hair or nails. Neurologic: No aphasia. No facial droop. No change in mentation. No head injury. No headache. No paralysis. No paresthesia. Psychiatric: No depression. No anxiety. No mood swings. Endocrine: No abnormal blood sugars. No weight change. No excessive sweating or thirst. Social history Patient denies history of smoking, illicit drug use, marijuana use or alcohol use. She uses a walker for ambulation. Family history Both parents have passed in both had history of Alzheimer's dementia. Patient has 1 brother with no major medical problems. Physical exam General Appearance: Alert, cooperative, no distress, this is a 81-year-old female appears stated age. She is resting in bed. Neck HEENT: Supple, no lymphadenopathy, no thyroid enlargement, no carotid bruits. Lungs: Clear to auscultation without crackles or wheezes no rhonchi, no deformity. Chest Wall: Chest wall normal expansion with deep inspiration no tenderness and no deformity was found on exam, no costochondral pain or discomfort. Heart: Regular rate and rhythm, S1, S2 normal, no murmur, rub or gallop. Back: Symmetric, no curvature, ROM normal, no CVA tenderness. Abdomen: Soft, tenderness to palpation to the left lower quadrant., no rebound or rigidity, no hepatosplenomegaly. Extremities: Extremities normal, atraumatic, no cyanosis or edema. Pulses: 2+ and symmetric. Skin: Skin color, texture, tugor normal, no rashes or lesions. Neurologic: Alert oriented x3 cranial nerves II through XII intact, no motor deficit, no abnormal balance or gait Assessment and plan 1. Abdominal pain secondary to colitis ischemic versus infectious. CT results noted above. GoLYTELY lavage given with positive results. Normal saline bolus. 2. Near syncope. Continue with Antivert. 3. Hypothyroidism. Levothyroxine 25 MCG's by mouth daily 4. Impaction. GoLYTELY given with positive results. Continue with MiraLAX daily 5. Rheumatoid arthritis with joint deformities. Patient is normally on ibuprofen which will be held. 6. GI prophylaxis. Protonix. 7. DVT prophylaxis. Ambulation. Patient will be discharged home today. Follow-up in the office in 1-2 days. Discharge diagnoses: 1. Abdominal pain secondary to colitis ischemic versus infectious 2. Near syncope 3. Hypothyroidism 4. Impaction 5. Rheumatoid arthritis or joint deformities Discharge disposition: Home with self-care Past Medical History Past Medical History: Chest Pain / Angina, Osteoarthritis (OA), Thyroid Disorder Additional Past Medical History / Comment(s): kidney stones, cervical pain, History of Any Multi-Drug Resistant Organisms: None Reported Past Surgical History: Appendectomy, Orthopedic Surgery Additional Past Surgical History / Comment(s): mult. surgeries left leg for shattered femur, PAIN CLINIC PROCEDURES Past Anesthesia/Blood Transfusion Reactions: Motion Sickness Past Psychological History: No Psychological Hx Reported Smoking Status: Never smoker Past Alcohol Use History: None Reported Past Drug Use History: None Reported - Past Family History Mother Family Medical History: No Reported History Medications and Allergies Home Medications Medication Instructions Recorded Confirmed Type Acetaminophen [Tylenol] 650 mg PO Q6H PRN 05/06/21 04/02/22 History Levothyroxine Sodium 25 mcg PO DAILY 05/06/21 04/02/22 History Meclizine [Antivert] 12.5 mg PO BID PRN #14 tablet 04/02/22 Rx metroNIDAZOLE [Flagyl] 250 mg PO BID #14 tab 04/03/22 Rx Allergies Allergy/AdvReac Type Severity Reaction Status Date / Time Penicillins Allergy Rash/Hives Verified 04/02/22 21:22 all over body Physical Exam Vitals: Vital Signs Temp Pulse Pulse Resp BP BP Pulse Ox 04/03/22 07:00 96.7 F L 75 18 145/69 99 04/03/22 02:35 97.6 F 84 16 176/75 98 04/03/22 01:08 87 15 161/78 97 Intake and Output 04/02/22 04/03/22 04/03/22 22:59 06:59 14:59 Intake Total 240 Balance 240 Intake: Oral 240 Other: Voiding Method Toilet Bedpan # Voids 1 Weight 60.328 kg 60.328 kg Results CBC & Chem 7: 04/02/22 21:16 04/02/22 21:16 Labs: Abnormal Lab Results - Last 24 Hours (Table) 04/02/22 04/02/22 Range/Units 21:16 21:16 MCHC 30.7 L (31.0-37.0) g/dL RDW 15.7 H (11.5-15.5) % Lymphocytes # 0.9 L (1.0-4.8) k/uL Sodium 136 L (137-145) mmol/L Chloride 109 H (98-107) mmol/L Calcium 10.4 H (8.4-10.2) mg/dL
[2022-04-04] MEDS ORDERED: LEVOTHYROXINE 25 MCG TAB PO SCH (06:30)
== END 2022-04-03 14:15 | disposition home or self-care (01) ==
LOC: EC 19:46 → 6NMEDSUR 04-03 00:14
PROVIDERS: ADMIT Internal Medicine Geriatric Medicine; ATTEND Internal Medicine Geriatric Medicine
DX: R10.32 Left lower quadrant pain (principal); R55 Syncope and collapse; E03.9 Hypothyroidism, unspecified; K56.41 Fecal impaction; M06.9 Rheumatoid arthritis, unspecified; K92.1 Melena; R42 Dizziness and giddiness; E78.00 Pure hypercholesterolemia, unspecified; K92.0 Hematemesis; M19.90 Unspecified osteoarthritis, unspecified site; M54.2 Cervicalgia; E05.90 Thyrotoxicosis, unspecified without thyrotoxic crisis or storm; Z79.890 Hormone replacement therapy; Z88.0 Allergy status to penicillin; Z87.442 Personal history of urinary calculi; Z90.49 Acquired absence of other specified parts of digestive tract; Z82.0 Family history of epilepsy and other diseases of the nervous system
CPT/HCPCS: 99285; G0378; 36415; 74177; 80053; 82272; 83690; 84484; 85025; 85610; 85730; 86850; 86900; 86901; 93005

== ENCOUNTER 2022-04-05 11:06 | Inpatient (IN) | payer MEDICARE ==
[2022-04-05] MEDS ORDERED: HYDROcodone/APAP 5-325MG 1 EACH TAB PO STA (11:59)
[2022-04-05 12:06] LABS: Basophils % (A) 0 %; Eosinophils # (A) 0.1 k/uL (0-0.7); Eosinophils % (A) 1 %; HCT 38.1 % (34.0-46.0); HGB 11.7 gm/dL (11.4-16.0); Lymphocytes # (A) 0.2 k/uL (1.0-4.8); Lymphocytes % (A) 2 %; MCH 28.1 pg (25.0-35.0); MCHC 30.7 g/dL (31.0-37.0); MCV 91.4 fL (80.0-100.0); Mean Platelet Volume 7.4; Monocytes # (A) 0.2 k/uL (0-1.0); Monocytes % (A) 2 %; Neutrophils # (A) 10.9 k/uL (1.3-7.7); Neutrophils % (A) 95 %; Platelet Count 246 k/uL (150-450); RBC 4.17 m/uL (3.80-5.40); RDW 15.5 % (11.5-15.5); WBC 11.5 k/uL (3.8-10.6)
[2022-04-05 12:20] LABS: Albumin 3.7 g/dL (3.5-5.0); Calcium 10.4 mg/dL (8.4-10.2); Total Bilirubin 0.7 mg/dL (0.2-1.3)
--- NOTE | 2022-04-05 12:29 | XR ---
EXAMINATION TYPE: XR wrist complete RT DATE OF EXAM: 04/05/2022 COMPARISON: NONE HISTORY: Pain TECHNIQUE: Four views submitted. FINDINGS: The osseous structures are intact. Severe arthropathy of the scaphoid trapezial joint. Diffuse osteop enia. Cystic change of the scaphoid likely postarthritic. There is mild widening of the scapholunate joint. Tiny bony density on the lateral view along the dorsum of the wrist. IMPRESSION: 1. Severe arthropathy scaphotrapezial joint with remodeling of regions of the scaphoid. 2. Widening of the scapholunate joint to be associated with ligamentous disruption correlating with M RI as clinically warranted. 3. There is a tiny bony density adjacent to the dorsal surface of the wrist on the lateral view to be associated chip fracture of the triquetrum of indeterminate age. Could be chronic correlate clinical ly.
[2022-04-05] MEDS ORDERED: MORPHINE SULFATE 2 MG/ML SYRINGE IVP STA (15:13)
[2022-04-05 16:03] LABS: Appearance,Urine Cloudy (Clear); Bacteria,Urine Moderate /hpf; Bilirubin,Urine Negative (Negative); Blood,Urine Trace (Negative); Color,Urine Yellow; Glucose,Urine (UA) Negative (Negative); Ketones,Urine Negative (Negative); Leukocyte Esterase,Urine Large (Negative); Mucus,Urine Rare /hpf; Nitrite,Urine Negative (Negative); PH, Urine 6.5 (5.0-8.0); Protein,Urine Trace (Negative); RBC,Urine 4 /hpf (0-5); Specific Gravity,Urine 1.025 (1.001-1.035); Squamous Epithelial Cell,Urine 25 /hpf (0-4); Urobilinogen,Urine <2.0 mg/dL (<2.0); WBC,Urine 54 /hpf (0-5)
--- NOTE | 2022-04-05 16:51 | CT ---
EXAMINATION TYPE: CT brain wo con DATE OF EXAM: 04/05/2022 COMPARISON: 09/29/2020 HISTORY: ams CT DLP: 1159.4 mGycm Automated exposure control for dose reduction was used. There is mild cerebral cortical atrophy. There is no mass effect nor midline shift. No sign of intrac ranial hemorrhage. The calvarium is intact. Exam limited slightly by motion. IMPRESSION: Negative unenhanced head CT scan. No change.
--- NOTE | 2022-04-05 16:53 | ED ---
General Adult HPI - General Chief complaint: Extremity Problem,Nontraumatic Stated complaint: wrist pain Time Seen by Provider: 04/05/22 11:17 Source: patient, EMS Mode of arrival: EMS Limitations: no limitations - History of Present Illness Initial comments: Patient is a 81-year-old female presents emergency room at the direction of her primary care provider with complaints of right wrist pain along with weakness and recurrent falls. She was recently here in the hospital and treated for colitis and sent home. Her family does report occasional mental status changes however there is no at this time. She has past medical history significant for arthritis and thyroid disease. She reports that since being discharged home 2 days ago she has been taking her antibiotics as prescribed. She is complaining of generalized pain but reports that she has had an increase and right wrist pain since last night. She does not recall falling and hitting her wrist however she has had multiple falls recently. She denies any fevers but does report chills. She denies any other complaints or concerns at this time. - Related Data Home Medications Medication Instructions Recorded Confirmed Acetaminophen [Tylenol] 650 mg PO Q6H PRN 05/06/21 04/02/22 Levothyroxine Sodium 25 mcg PO DAILY 05/06/21 04/02/22 Previous Rx's Medication Instructions Recorded Meclizine [Antivert] 12.5 mg PO BID PRN #14 tablet 04/02/22 metroNIDAZOLE [Flagyl] 250 mg PO BID #14 tab 04/03/22 Allergies Allergy/AdvReac Type Severity Reaction Status Date / Time Penicillins Allergy Rash/Hives Verified 04/05/22 11:10 all over body Review of Systems ROS Statement: Those systems with pertinent positive or pertinent negative responses have been documented in the HPI. ROS Other: All systems not noted in ROS Statement are negative. Past Medical History Past Medical History: Chest Pain / Angina, Osteoarthritis (OA), Thyroid Disorder Additional Past Medical History / Comment(s): kidney stones, cervical pain, History of Any Multi-Drug Resistant Organisms: None Reported Past Surgical History: Appendectomy, Orthopedic Surgery Additional Past Surgical History / Comment(s): mult. surgeries left leg for shattered femur, PAIN CLINIC PROCEDURES Past Anesthesia/Blood Transfusion Reactions: Motion Sickness Past Psychological History: No Psychological Hx Reported Smoking Status: Never smoker Past Alcohol Use History: None Reported Past Drug Use History: None Reported - Past Family History Mother Family Medical History: No Reported History General Exam Limitations: no limitations General appearance: alert, in no apparent distress Head exam: Present: atraumatic, normocephalic, normal inspection Eye exam: Present: normal appearance, PERRL, EOMI. Absent: scleral icterus, conjunctival injection, periorbital swelling ENT exam: Present: normal exam, mucous membranes moist Neck exam: Present: normal inspection. Absent: tenderness, meningismus, lymphadenopathy Respiratory exam: Present: normal lung sounds bilaterally. Absent: respiratory distress, wheezes, rales, rhonchi, stridor Cardiovascular Exam: Present: regular rate, normal rhythm, normal heart sounds. Absent: systolic murmur, diastolic murmur, rubs, gallop, clicks GI/Abdominal exam: Present: soft, normal bowel sounds. Absent: distended, tenderness, guarding, rebound, rigid Extremities exam: Present: joint swelling (right wrist), other (leg discrepencies) Neurological exam: Present: alert, oriented X3, CN II-XII intact Psychiatric exam: Present: normal affect, normal mood Skin exam: Present: warm, dry, intact, normal color. Absent: rash Course Vital Signs 04/05/22 04/05/22 04/05/22 11:07 14:21 15:22 Temperature 99 F 99.1 F 98.7 F Pulse Rate 103 H 104 H 103 H Respiratory 18 18 20 Rate Blood Pressure 152/80 172/71 151/61 O2 Sat by Pulse 100 99 97 Oximetry Medical Decision Making - Medical Decision Making X-ray of the wrist show severe arthropathy and diffuse osteopenia no acute significant changes. Mild leukocytosis noted along with low-grade temperature. Blood cultures pending. UA consistent with UTI. Computed tomography scan of brain pending. X-ray of lumbar spine pending. Case discussed with Dr. Santiago who is like admission for weakness workup along with UTI treatment. Pain overall stable with use of [place] and morphine as needed. - Lab Data Result diagrams: 04/05/22 11:11 04/05/22 11:11 Lab Results 04/05/22 04/05/22 04/05/22 Range/Units 11:11 11:11 11:11 WBC 11.5 H (3.8-10.6) k/uL RBC 4.17 (3.80-5.40) m/uL Hgb 11.7 (11.4-16.0) gm/dL Hct 38.1 (34.0-46.0) % MCV 91.4 (80.0-100.0) fL MCH 28.1 (25.0-35.0) pg MCHC 30.7 L (31.0-37.0) g/dL RDW 15.5 (11.5-15.5) % Plt Count 246 (150-450) k/uL MPV 7.4 Neutrophils % 95 % Lymphocytes % 2 % Monocytes % 2 % Eosinophils % 1 % Basophils % 0 % Neutrophils # 10.9 H (1.3-7.7) k/uL Lymphocytes # 0.2 L (1.0-4.8) k/uL Monocytes # 0.2 (0-1.0) k/uL Eosinophils # 0.1 (0-0.7) k/uL Basophils # 0.0 (0-0.2) k/uL Sodium 135 L (137-145) mmol/L Potassium 4.0 (3.5-5.1) mmol/L Chloride 108 H (98-107) mmol/L Carbon Dioxide 19 L (22-30) mmol/L Anion Gap 8 mmol/L BUN 17 (7-17) mg/dL Creatinine 0.74 (0.52-1.04) mg/dL Est GFR (CKD-EPI)AfAm 89 (>60 ml/min/1.73 sqM) Est GFR (CKD-EPI)NonAf 77 (>60 ml/min/1.73 sqM) Glucose 112 H (74-99) mg/dL Plasma Lactic Acid Mark 1.2 (0.7-2.0) mmol/L Calcium 10.4 H (8.4-10.2) mg/dL Total Bilirubin 0.7 (0.2-1.3) mg/dL AST 20 (14-36) U/L ALT 13 (4-34) U/L Alkaline Phosphatase 90 (38-126) U/L Total Protein 7.0 (6.3-8.2) g/dL Albumin 3.7 (3.5-5.0) g/dL Urine Color Urine Appearance (Clear) Urine pH (5.0-8.0) Ur Specific [place] (1.001-1.035) Urine Protein (Negative) Urine Glucose (UA) (Negative) Urine Ketones (Negative) Urine Blood (Negative) Urine Nitrite (Negative) Urine Bilirubin (Negative) Urine Urobilinogen (<2.0) mg/dL Ur Leukocyte Esterase (Negative) Urine RBC (0-5) /hpf Urine WBC (0-5) /hpf Ur Squamous Epith Cells (0-4) /hpf Urine Bacteria (None) /hpf Urine Mucus (None) /hpf 04/05/22 Range/Units 15:27 WBC (3.8-10.6) k/uL RBC (3.80-5.40) m/uL Hgb (11.4-16.0) gm/dL Hct (34.0-46.0) % MCV (80.0-100.0) fL MCH (25.0-35.0) pg MCHC (31.0-37.0) g/dL RDW (11.5-15.5) % Plt Count (150-450) k/uL MPV Neutrophils % % Lymphocytes % % Monocytes % % Eosinophils % % Basophils % % Neutrophils # (1.3-7.7) k/uL Lymphocytes # (1.0-4.8) k/uL Monocytes # (0-1.0) k/uL Eosinophils # (0-0.7) k/uL Basophils # (0-0.2) k/uL Sodium (137-145) mmol/L Potassium (3.5-5.1) mmol/L Chloride (98-107) mmol/L Carbon Dioxide (22-30) mmol/L Anion Gap mmol/L BUN (7-17) mg/dL Creatinine (0.52-1.04) mg/dL Est GFR (CKD-EPI)AfAm (>60 ml/min/1.73 sqM) Est GFR (CKD-EPI)NonAf (>60 ml/min/1.73 sqM) Glucose (74-99) mg/dL Plasma Lactic Acid Mark (0.7-2.0) mmol/L Calcium (8.4-10.2) mg/dL Total Bilirubin (0.2-1.3) mg/dL AST (14-36) U/L ALT (4-34) U/L Alkaline Phosphatase (38-126) U/L Total Protein (6.3-8.2) g/dL Albumin (3.5-5.0) g/dL Urine Color Yellow Urine Appearance Cloudy H (Clear) Urine pH 6.5 (5.0-8.0) Ur Specific [place] 1.025 (1.001-1.035) Urine Protein Trace H (Negative) Urine Glucose (UA) Negative (Negative) Urine Ketones Negative (Negative) Urine Blood Trace H (Negative) Urine Nitrite Negative (Negative) Urine Bilirubin Negative (Negative) Urine Urobilinogen <2.0 (<2.0) mg/dL Ur Leukocyte Esterase Large H (Negative) Urine RBC 4 (0-5) /hpf Urine WBC 54 H (0-5) /hpf Ur Squamous Epith Cells 25 H (0-4) /hpf Urine Bacteria Moderate H (None) /hpf Urine Mucus Rare H (None) /hpf - Radiology Data Radiology results: report reviewed, image reviewed Disposition Clinical Impression: UTI (urinary tract infection), Deep vein thrombosis (DVT) of upper extremity, Weakness Disposition: [facility] Condition: Stable Referrals: Keron Littlejohn MD [Primary Care Provider] - 1-2 days Time of Disposition: 16:54
[2022-04-05] MEDS ORDERED: NALOXONE 0.4 MG/ML 1 ML VIAL IV PRN (16:57)
--- NOTE | 2022-04-05 17:08 | XR ---
EXAMINATION TYPE: XR lumbar spine 2 or 3V DATE OF EXAM: 04/05/2022 COMPARISON: 01/24/2021 CT scan HISTORY: Pain TECHNIQUE: 3 views FINDINGS: Lumbar vertebral abnormal alignment. Posterior elements are intact. There is no significant disc space narrowing. There is mild depression of the superior endplate of T12 of 10%. Abdominal aor ta is atheromatous. Sacroiliac joints appear intact. IMPRESSION: Slight loss of height of T12 vertebra that appears increased compared to 01/24/2021. Osteo penia.
[2022-04-05] MEDS ORDERED: ACETAMINOPHEN TAB 325 MG TAB PO PRN (18:09)
[2022-04-05] MEDS: IBUPROFEN 600 MG TAB PO PRN (18:14)
[2022-04-05] MEDS ORDERED: MECLIZINE 12.5 MG TAB PO PRN (18:30)
[2022-04-05] MEDS: metroNIDAZOLE-NS PMX 500 MG in SALINE 1 100ML.BAG IVPB SCH (20:29)
[2022-04-05] MEDS: MORPHINE SULFATE 2 MG/ML SYRINGE IVP PRN (21:15)
[2022-04-05] MEDS: LEVOFLOXACIN 250MG-D5W PMX 250 MG in DEXTROSE/WATER 1 50ML.BAG IVPB SCH (22:31)
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
[2022-04-06] MEDS: IBUPROFEN 600 MG TAB PO PRN ×2 (01:50→20:59)
[2022-04-06] MEDS: LEVOTHYROXINE 25 MCG TAB PO SCH (06:04)
[2022-04-06] MEDS: ACETAMINOPHEN TAB 325 MG TAB PO PRN ×2 (09:12→23:10)
[2022-04-06] MEDS: PANTOPRAZOLE 40 MG TABLET PO SCH (09:12)
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
[2022-04-06] MEDS: metroNIDAZOLE-NS PMX 500 MG in SALINE 1 100ML.BAG IVPB SCH ×3 (09:56→23:11)
--- NOTE | 2022-04-06 11:04 | P.PN ---
Subjective Progress Note Date: 04/06/22 History of Present Illness 81-year-old female one of my office patient who was in the hospital on Tuesday night because of severe abdominal pain with acute diverticulitis and major impaction was treated and felt slightly but better the following morning despite her debility with general condition having an injury of her leg and limp quite bed patient was stronger the time decided to go home. Patient was sent home on Flagyl for diverticuli was post to be back in the office 2-5 days. She called today with family concern mostly that she is having significant confusion with debility had falling twice since she left the hospital not been able to care for herself with quite bit confused at the time without major agitation she is not able to know her surrounding still answer some of the question appropriate but other with quite confusion. Also patient has been having significant lower back pain, normal balance and gait with significant pain and discomfort in the legs as well. Worsening frequency and urgency with low-grade temperature. She ended up coming to the emergency department at [facility] where was seen and evaluated this time white blood cell was up to 11,000 some her chemistry showed mildly elevated calcium urine test was extremely positive for urinary tract infection. With the significant confusion and lower back pain ended up going for CT of the brain had failed to show any major abnormality at the time also had lumbar spine x-ray finding consistent with new compression of the T12 vertebrae with worsening osteopenia causing more symptoms at the time. With her current urinary tract infection and significant encephalopathy with debility along with intractable lower back pain and multiple. In able to ambulate and walk straight can be all explain with the compression T12 along with the encephalopathy from UTI. Patient was started on IV antibiotics and bedrest for now and we'll consult PTOT patient might require further help and at least 48 hours of IV antibiotics initially before switching her to oral antibiotics. 04/06: Patient is seen today on [facility] floor. Temperature max 100.9, heart rate improved this morning at 88, blood pressure 125/65, pulse ox 97% on room air. Urine culture is in progress. Blood cultures status received. Patient is currently on Levaquin, Flagyl and ceftriaxone for coverage for UTI and di verticulitis. Patient has been seen by neurology and ordered right hand wrist x-ray to rule out fracture. He recommends MRI of the cervical spine can be done as an outpatient. Because patient's mental status is improving, no plan at this time for EEG and MRI and less mental status worsens. Repeat blood work ordered for tomorrow. PT and OT consults. Review Of Systems: Constitutional: No fever, no chills, no night sweats. No weight change. No weakness, fatigue or lethargy. No daytime sleepiness. EENT: No headache. No blurred vision or double vision, no loss of vision. No loss of Hearing, no ringing in the ears, no dizziness. No nasal drainage or congestion. No epistaxis. No sore throat. Lungs: No shortness of breath, cough, no sputum production. No wheezing. Cardiovascular: No chest pain, no lower extremity edema. No palpitations. No paroxysmal nocturnal dyspnea. No orthopnea. No lightheadedness or dizziness. No syncopal episodes. Abdominal: slight abdominal discomfort with nausea no vomiting positive constipation slight discomfort and irritation in the lower abdominal region area. Genitourinary: positive frequency, urgency, urinary retention with burning discomfort. Musculoskeletal:positive myalgia with lumbar spine pain and discomfort with abnormal balance and gait. Integumentary: No wounds, no lesions. No rash or pruritus. No unusual bruising. No change in hair or nails. Neurologic: No aphasia. No facial droop. No change in mentation. No head injury. No headache. No paralysis. No paresthesia. Psychiatric: No depression. No anxiety. No mood swings. Endocrine: No abnormal blood sugars. No weight change. Physical exam General Appearance: Alert, slightly confused does not look in any respiratory distress mental status is improving, Neck HEENT: Supple, no lymphadenopathy, no thyroid enlargement, no carotid bruits. Lungs: Clear to auscultation without crackles or wheezes no rhonchi, no deform ity. Chest Wall: decrease expansion with deep inspiration no tenderness and no deformity was found on exam, no costochondral pain or discomfort. Heart: Regular rate and rhythm, S1, S2 normal, no murmur, rub or gallop. Back: Symmetric, no curvature, ROM normal, no CVA tenderness. Abdomen: soft positive bowel sounds slight discomfort and tenderness left lower quadrant and mid lower abdominal region area with no rebound or rigidity. No masses. Extremities: Extremities normal, atraumatic, no cyanosis or edema. Pulses: 2+ and symmetric. Skin: Skin color, texture, tugor normal, no rashes or lesions. Neurologic: Alert mild confused cranial nerves II through XII intact, no motor deficit, positive normal gait. Assessment and plan 1. Metabolic encephalopathy and UTI and diverticulitis. Neurology consult appreciated. 2 UTI and sepsis: Patient UA specially with the confusion had cause more complication started Rocephin continue hydration for now. 3 severe debility not clear etiology could be from the general overall condition the same time could be related to her current infection, PTOT was requested at this time we will continue to watch her culture final result. 4 compression T12: Continue finding at this time, patient will be on conservative management, pain management along with muscle relaxer if needed steroid can be use. We'll consult orthopedic for compression does not look didn't require any surgical intervention might require more help with PTOT. 5 recurrent abdominal pain and colitis: Most likely ischemic versus infectious colitis/diverticulitis, continue patient on Flagyl and Levaquin for now to complete total of 7 more days. 6. Near syncope. Continue with Antivert. 7. Hypothyroidism. Levothyroxine 25 MCG's by mouth daily 8. Rheumatoid arthritis with joint deformities. Patient is normally on ibuprofen which will be held. 9. GI prophylaxis. Protonix. 10 DVT prophylaxis: Early mobilization and knee-high TESSA hose. CODE STATUS: Full code. DISCHARGE PLAN To be determined. PT and OT consults in place. Impression and plan of care have been directed as dictated by the signing physician. Tara Lagunas nurse practitioner acting as scribe for signing physician. Objective - Vital Signs Vital signs: Vital Signs Temp 98.5 F 04/06/22 01:47 Pulse 88 04/06/22 01:47 Resp 16 04/06/22 01:47 BP 125/65 04/06/22 01:47 Pulse Ox 97 04/06/22 01:47 FiO2 Intake & Output 04/05/22 04/06/22 04/06/22 18:59 06:59 18:59 Output Total 0 Balance 0 Weight 60.328 kg Output: Emesis 0 Other: Voiding Method Toilet - Labs CBC & Chem 7: 04/05/22 11:11 04/05/22 11:11 Labs: Abnormal Lab Results - Last 24 Hours (Table) 04/05/22 04/05/22 04/05/22 Range/Units 11:11 11:11 15:27 WBC 11.5 H (3.8-10.6) k/uL MCHC 30.7 L (31.0-37.0) g/dL Neutrophils # 10.9 H (1.3-7.7) k/uL Lymphocytes # 0.2 L (1.0-4.8) k/uL Sodium 135 L (137-145) mmol/L Chloride 108 H (98-107) mmol/L Carbon Dioxide 19 L (22-30) mmol/L Glucose 112 H (74-99) mg/dL Calcium 10.4 H (8.4-10.2) mg/dL Urine Appearance Cloudy H (Clear) Urine Protein Trace H (Negative) Urine Blood Trace H (Negative) Ur Leukocyte Esterase Large H (Negative) Urine WBC 54 H (0-5) /hpf Ur Squamous Epith Cells 25 H (0-4) /hpf Urine Bacteria Moderate H (None) /hpf Urine Mucus Rare H (None) /hpf Microbiology - Last 24 Hours (Table) 04/05/22 15:27 Urine Culture - Preliminary Urine,Voided
--- NOTE | 2022-04-06 14:18 | XR ---
EXAMINATION TYPE: XR hand complete RT DATE OF EXAM: 04/06/2022 COMPARISON: NONE HISTORY: Pain TECHNIQUE: Three views are submitted. FINDINGS: Diffuse osteopenia. There is severe narrowing of the fifth DIP joint with erosive changes. Narrowing of all PIP joints and DIP joints seen in there is also mild narrowing of all MCP joints. Mild narrowi ng of the radiocarpal joint with severe narrowing of trapezial scaphoid joint. IMPRESSION: 1. Diffuse osteopenia with arthropathy. 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
[2022-04-06] MEDS: MORPHINE SULFATE 2 MG/ML SYRINGE IVP PRN ×2 (14:33→21:01)
[2022-04-06] MEDS: LEVOFLOXACIN 250MG-D5W PMX 250 MG in DEXTROSE/WATER 1 50ML.BAG IVPB SCH (18:45)
[2022-04-07] MEDS: LEVOTHYROXINE 25 MCG TAB PO SCH (05:57)
[2022-04-07] MEDS: MORPHINE SULFATE 2 MG/ML SYRINGE IVP PRN (07:24)
[2022-04-07 07:42] LABS: HCT 35.5 % (34.0-46.0); HGB 10.7 gm/dL (11.4-16.0); Hypochromasia Slight; MCH 28.3 pg (25.0-35.0); MCHC 30.1 g/dL (31.0-37.0); MCV 94.2 fL (80.0-100.0); Platelet Count 186 k/uL (150-450); RBC 3.77 m/uL (3.80-5.40); RDW 15.8 % (11.5-15.5); WBC 4.5 k/uL (3.8-10.6)
--- NOTE | 2022-04-07 08:05 | P.DS ---
Providers Date of admission: 04/05/22 16:26 Expected date of discharge: 04/07/22 Attending physician: Keron Littlejohn Consults: 04/05/22 16:59 Consult Physician Routine Consulting Provider: James Lee Consult Reason/Comments: weakness Do you want consulting provider notified?: Yes Primary care physician: Keron Littlejohn [facility] Course: History of Present Illness 81-year-old female one of my office patient who was in the hospital on Tuesday night because of severe abdominal pain with acute diverticulitis and major impaction was treated and felt slightly but better the following morning despite her debility with general condition having an injury of her leg and limp quite bed patient was stronger the time decided to go home. Patient was sent home on Flagyl for diverticuli was post to be back in the office 2-5 days. She called today with family concern mostly that she is having significant confusion with debility had falling twice since she left the hospital not been able to care for herself with quite bit confused at the time without major agitation she is not able to know her surrounding still answer some of the question appropriate but other with quite confusion. Also patient has been having significant lower back pain, normal balance and gait with significant pain and discomfort in the legs as well. Worsening frequency and urgency with low-grade temperature. She ended up coming to the emergency department at [facility] where was seen and evaluated this time white blood cell was up to 11,000 some her chemistry showed mildly elevated calcium urine test was extremely positive for urinary tract infection. With the significant confusion and lower back pain ended up going for CT of the brain had failed to show any major abnormality at the time also had lumbar spine x-ray finding consistent with new compression of the T12 vertebrae with worsening osteopenia causing more symptoms at the time. With her current urinary tract infection and significant encephalopathy with debility along with intractable lower back pain and multiple. In able to ambulate and walk straight can be all explain with the compression T12 along with the encephalopathy from UTI. Patient was started on IV antibiotics and bedrest for now and we'll consult PTOT patient might require further help and at least 48 hours of IV antibiotics initially before switching her to oral antibiotics. 04/06: Patient is seen today on [facility] floor. Temperature max 100.9, heart rate improved this morning at 88, blood pressure 125/65, pulse ox 97% on room air. Urine culture is in progress. Blood cultures status received. Patient is currently on Levaquin, Flagyl and ceftriaxone for coverage for UTI and diverticulitis. Patient has been seen by neurology and ordered right hand wrist x-ray to rule out fracture. He recommends MRI of the cervical spine can be done as an outpatient. Because patient's mental status is improving, no plan at this time for EEG and MRI and less mental status worsens. Repeat blood work ordered for tomorrow. PT and OT consults. 04/07: Patient did very well with physical therapy and thought to be too good to go to subacute rehab. Patient has been updated as well as patient's brother. She states that she is feeling much better today. Her last bowel movement was a couple days ago possibly on Tuesday. Urine culture has been finalized with no significant growth. Blood culture no growth at 24 hours 2 specimens Hand x-ray revealed diffuse osteopenia with arthropathy, erosive osteoarthritis. Patient is afebrile, heart rate 83, blood pressure 123/63, pulse ox 97% on room air. Patient will be discharged home today in stable condition. Discharge Diagnoses 1. Metabolic encephalopathy and UTI and diverticulitis. 2 UTI and sepsis 3 severe debility 4 compression T12 5 recurrent abdominal pain and colitis: Most likely ischemic versus infectious colitis/diverticulitis 6. Near syncope. 7. Hypothyroidism. 8. Rheumatoid arthritis with joint deformities. DISCHARGE PLAN Home with Home Care Greater than 35 minutes was utilized and coordinating patient's discharge. Impression and plan of care have been directed as dictated by the signing physician. Tara Lagunas nurse practitioner acting as scribe for signing physician. Patient Condition at Discharge: Stable Plan - Discharge Summary New Discharge Prescriptions: New Levofloxacin [Levaquin] 500 mg PO DAILY 5 Days #5 tab Continue Acetaminophen [Tylenol] 650 mg PO Q6H PRN PRN Reason: Pain Meclizine [Antivert] 12.5 mg PO BID PRN #14 tablet PRN Reason: Vertigo metroNIDAZOLE [Flagyl] 250 mg PO BID #14 tab Levothyroxine Sodium 25 mcg PO DAILY Discharge Medication List Acetaminophen [Tylenol] 650 mg PO Q6H PRN 05/06/21 [History] Levothyroxine Sodium 25 mcg PO DAILY 05/06/21 [History] Meclizine [Antivert] 12.5 mg PO BID PRN #14 tablet 04/02/22 [Rx] Levofloxacin [Levaquin] 500 mg PO DAILY 5 Days #5 tab 04/07/22 [Rx] metroNIDAZOLE [Flagyl] 250 mg PO BID #14 tab 04/07/22 [Rx] Follow up Appointment(s)/Referral(s): Keron Littlejohn MD [Primary Care Provider] - 1 Week [facility], [NON-STAFF] - 1-2 Days Patient Instructions/Handouts: Urinary Tract Infection in Women (DC) Discharge/Stand Alone Forms: Who Do I Call?, Personal [facility] Discharge Disposition: HOME WITH HOME HEALTH SERVICES
[2022-04-07 08:16] LABS: ALT 24 U/L (4-34); AST 27 U/L (14-36); African American GFR (CKD) 59 (>60 ml/min/1.73 sqM); Albumin 2.5 g/dL (3.5-5.0); Albumin/Globulin Ratio 0.9; Alkaline Phosphatase 113 U/L (38-126); Anion Gap 6 mmol/L; Blood Urea Nitrogen 21 mg/dL (7-17); Calcium 9.6 mg/dL (8.4-10.2); Carbon Dioxide 19 mmol/L (22-30); Chloride 110 mmol/L (98-107); Globulin 2.7 g/dL; Glucose 82 mg/dL (74-99); Non-African American GFR(CKD) 51 (>60 ml/min/1.73 sqM); Potassium 3.8 mmol/L (3.5-5.1); Sodium 135 mmol/L (137-145); Total Bilirubin 0.3 mg/dL (0.2-1.3); Total Protein 5.2 g/dL (6.3-8.2)
[2022-04-07] MEDS: PANTOPRAZOLE 40 MG TABLET PO SCH (08:16)
[2022-04-07] MEDS: metroNIDAZOLE-NS PMX 500 MG in SALINE 1 100ML.BAG IVPB SCH (08:16)
[2022-04-07 08:43] VITALS: BP 123/63; PULSE 83; RESP 16; TEMP 98
== END 2022-04-07 11:52 | disposition home health service (06) | DRG 871 ==
LOC: EC 11:06 → 6NMEDSUR 16:26
PROVIDERS: ADMIT Internal Medicine Geriatric Medicine; ATTEND Internal Medicine Geriatric Medicine
DX: A41.9 Sepsis, unspecified organism (principal); G93.41 Metabolic encephalopathy; N39.0 Urinary tract infection, site not specified; K57.92 Diverticulitis of intestine, part unspecified, without perforation or abscess without bleeding; G95.29 Other cord compression; K55.9 Vascular disorder of intestine, unspecified; E03.9 Hypothyroidism, unspecified; R33.8 Other retention of urine; R35.0 Frequency of micturition; K52.9 Noninfective gastroenteritis and colitis, unspecified; M06.9 Rheumatoid arthritis, unspecified; M19.90 Unspecified osteoarthritis, unspecified site; M85.80 Other specified disorders of bone density and structure, unspecified site; M25.531 Pain in right wrist; R29.6 Repeated falls; Z79.890 Hormone replacement therapy; Z82.0 Family history of epilepsy and other diseases of the nervous system; Z87.442 Personal history of urinary calculi; Z91.81 History of falling; Z88.0 Allergy status to penicillin; R55 Syncope and collapse
CPT/HCPCS: 36415; 70450; 72100; 74177; 80053; 81001; 82272; 83605; 83690; 84484; 85025; 85027; 85610; 85730; 86850; 86900; 86901; 87040; 87086; 93005; 96374; 99285

== ENCOUNTER 2022-04-07 16:36 | Observation (INO) | payer MEDICARE ==
--- NOTE | 2022-04-07 18:08 | ED ---
Fall HPI - General Chief Complaint: Fall Stated Complaint: Fall Time Seen by Provider: 04/07/22 16:58 Source: patient, family, EMS, RN notes reviewed Mode of arrival: EMS - History of Present Illness Initial Comments: This is an 81-year-old female who presents to the emergency department for a fall. Patient stepped away from her walker to walk to the bathroom, and ended up losing her balance, causing her to fall between her bed and nightstand. She hit the back of her head when she fell. Denies being on any blood thinners. She was unable to get herself up due to arthritis in the left leg and an inability to bend it due to multiple surgeries for a fractured femur. Patient states that she continues to fall due to arthritis and weakness, and requests rehab placement. She was discharged earlier today following a 2 day hospital stay for weakness and confusion. She lives with her sister who is recovering from breast cancer and is unable to provide her with much help. Denies any fevers, chills, sore throat, cough, dyspnea, chest pain, palpitations, abdominal pain, nausea, vomiting, diarrhea, or back pain. MD Complaint: fall Fall From: standing Fall Witnessed: no Place Fall Occurred: home Loss of Consciousness: none Symptoms Prior to Fall: none Location: head - Related Data Home Medications Medication Instructions Recorded Confirmed Acetaminophen [Tylenol] 650 mg PO Q6H PRN 05/06/21 04/07/22 Levothyroxine Sodium 25 mcg PO DAILY 05/06/21 04/07/22 Previous Rx's Medication Instructions Recorded Meclizine [Antivert] 12.5 mg PO BID PRN #14 tablet 04/02/22 Levofloxacin [Levaquin] 500 mg PO DAILY 5 Days #5 tab 04/07/22 metroNIDAZOLE [Flagyl] 250 mg PO BID #14 tab 04/07/22 Allergies Allergy/AdvReac Type Severity Reaction Status Date / Time Penicillins Allergy Rash/Hives Verified 04/07/22 18:11 all over body Review of Systems ROS Statement: Those systems with pertinent positive or pertinent negative responses have been documented in the HPI. ROS Other: All systems not noted in ROS Statement are negative. Past Medical History Past Medical History: Chest Pain / Angina, Osteoarthritis (OA), Thyroid Disorder Additional Past Medical History / Comment(s): kidney stones, cervical pain, History of Any Multi-Drug Resistant Organisms: None Reported Past Surgical History: Appendectomy, Orthopedic Surgery Additional Past Surgical History / Comment(s): mult. surgeries left leg for shattered femur, PAIN CLINIC PROCEDURES Past Anesthesia/Blood Transfusion Reactions: Motion Sickness Past Psychological History: No Psychological Hx Reported Smoking Status: Never smoker Past Alcohol Use History: None Reported Past Drug Use History: None Reported - Past Family History Mother Family Medical History: No Reported History General Exam Limitations: no limitations General appearance: alert, in no apparent distress Head exam: Present: atraumatic, normocephalic, normal inspection Eye exam: Present: normal appearance, PERRL, EOMI. Absent: scleral icterus, conjunctival injection, periorbital swelling ENT exam: Present: normal exam, mucous membranes moist Respiratory exam: Present: normal lung sounds bilaterally. Absent: respiratory distress, wheezes, rales, rhonchi, stridor Cardiovascular Exam: Present: regular rate, normal rhythm, normal heart sounds. Absent: systolic murmur, diastolic murmur, rubs, gallop, clicks Neurological exam: Present: alert, oriented X3, CN II-XII intact Psychiatric exam: Present: normal affect, normal mood Skin exam: Present: warm, dry, intact, normal color. Absent: rash Course Vital Signs 04/07/22 04/07/22 04/07/22 16:39 22:24 22:26 Temperature 98.2 F 100.6 F H Pulse Rate 94 100 Respiratory 18 18 Rate Blood Pressure 135/69 153/104 O2 Sat by Pulse 99 97 Oximetry Medical Decision Making - Medical Decision Making This is an 81-year-old female who presents to the emergency department for a fall. Computed tomography scan of the brain obtained revealing no acute irregularities. I spoke with Dr. Littlejohn, and he states that when the patient was here recently, physical therapy felt that she got much better and she did not qualify for rehab per Medicare standards at that time. She would be unable to go to rehab unless it was via private pay, and even in that case there was no guarantee she would be accepted. Patient called her brother to pick her up, and he said that he was unwilling to take her home. He requested she be admitted at least overnight. Her brother called Dr. Littlejohn himself expressing his joaquina rns and I then spoke with Dr. Littlejohn afterwards. He is agreeable to admission, however he again reiterates that it is unlikely she will qualify for rehabilitation per Medicare standards, even if she were to go the self-pay route. I reiterated this to the patient and her brother and they both expressed understanding. Patient will have PT/OT eval in the morning as well as social work consult for possible rehab placement. This case was discussed in detail with the attending ED physician. Presentation, findings, and treatment plan discussed in detail as well. - Radiology Data Radiology results: report reviewed, image reviewed Disposition Clinical Impression: Fall, Debilitated patient, Frequent falls Disposition: ADMITTED IP TO THIS HOSP
--- NOTE | 2022-04-07 18:50 | CT ---
EXAMINATION TYPE: CT brain wo con DATE OF EXAM: 04/07/2022 COMPARISON: 04/05/2022 HISTORY: fall CT DLP: 1098.4 mGycm Automated exposure control for dose reduction was used. Exam performed with no contrast. Ventricles have normal size. There is no mass effect or midline shift. No sign of intracranial hemorr joaquín. There is mild atrophy. Calvarium is intact. Skull base is intact. There is normal aeration of t he mastoid sinuses. IMPRESSION: Negative unenhanced head CT scan. Mild atrophy. No change.
[2022-04-07] MEDS ORDERED: ACETAMINOPHEN TAB 325 MG TAB PO PRN (21:23)
[2022-04-07] MEDS ORDERED: NALOXONE 0.4 MG/ML 1 ML VIAL IV PRN (21:23)
[2022-04-07] MEDS ORDERED: ACETAMINOPHEN TAB 500 MG TAB PO STA (22:45)
[2022-04-07] MEDS ORDERED: IBUPROFEN 600 MG TAB PO STA (22:50)
[2022-04-07] MEDS ORDERED: NON FORMULARY DRUG (Acetaminophen [Tylenol] 325 MG Capsule) PO PRN (23:27)
[2022-04-07] MEDS ORDERED: MECLIZINE 12.5 MG TAB PO PRN (23:27)
[2022-04-08 00:24] VITALS: TEMP 99.9
[2022-04-08] MEDS: HYDROcodone/APAP 5-325MG 1 EACH TAB PO PRN ×2 (05:03→09:51)
[2022-04-08] MEDS ORDERED: LEVOTHYROXINE 25 MCG TAB PO SCH (06:30)
--- NOTE | 2022-04-08 07:43 | P.HPIM ---
History of Present Illness H&P Date: 04/08/22 HISTORY AND PHYSICAL AND DISCHARGE SUMMARY: History of Present Illness 81-year-old female one of my office patient who was in the hospital on Tuesday night because of severe abdominal pain with acute diverticulitis and major impaction was treated and felt better the following morning despite her debility with general condition having an injury of her leg and limp, patient was stronger at the time decided to go home. Patient was sent home on Flagyl for diverticuli was to be back in the office 2-5 days. She then developed significant confusion and debility and was brought back to the hospital treated for acute UTI and continued on antibiotics for diverticulitis. Patient was stabilized and did not meet criteria for subacute rehab per insurance and was discharged home. Family entertained idea of pain for care at [facility] but due to lack of bed availability, patient was discharged home which was her wish. Patient return within hours after having a fall in the bedroom after she lost her balance and fell between her bed and the nightstand. She hit her head and was unable to get herself up. She is requesting rehab placement. The patient was afebrile, heart rate 94, blood pressure 135/69, pulse ox 99% on room air. CAT scan of the brain revealed no acute abnormalities. Patient is seen today in the emergency center waiting for a bed on the observation unit. Patient has been accepted at [facility] and will be discharged there today in stable condition. Review Of Systems: Constitutional: No fever, no chills, no night sweats. No weight change. Reports weakness, no fatigue or lethargy. No daytime sleepiness. EENT: No headache. No blurred vision or double vision, no loss of vision. No loss of Hearing, no ringing in the ears, no dizziness. No nasal drainage or congestion. No epistaxis. No sore throat. Lungs: No shortness of breath, cough, no sputum production. No wheezing. Cardiovascular: No chest pain, no lower extremity edema. No palpitations. No paroxysmal nocturnal dyspnea. No orthopnea. No lightheadedness or dizziness. No syncopal episodes. Abdominal: slight abdominal discomfort no nausea no vomiting positive constipation slight discomfort and irritation in the lower abdominal region area. Genitourinary: Denies frequency, urgency, urinary retention with burning discomfort. Musculoskeletal:positive myalgia with lumbar spine pain and discomfort with abnormal balance and gait. Reports hand discomfort bilaterally secondary to cost arthritis. Reports generalized weakness and gait dysfunction. Integumentary: No wounds, no lesions. No rash or pruritus. No unusual bru ising. No change in hair or nails. Neurologic: No aphasia. No facial droop. No change in mentation. No head injury. No headache. No paralysis. No paresthesia. Psychiatric: No depression. No anxiety. No mood swings. Endocrine: No abnormal blood sugars. No weight change. No excessive sweating or thirst. Social history Patient denies history of smoking, illicit drug use, marijuana use or alcohol use. She uses a walker for ambulation. Family history Both parents have passed and both had history of Alzheimer's dementia. Patient has 1 brother with no major medical problems. Physical exam General Appearance: Alert, slightly confused does not look in any respiratory distress Neck HEENT: Supple, no lymphadenopathy, no thyroid enlargement, no carotid bruits. Lungs: Clear to auscultation without crackles or wheezes no rhonchi, no deformity. Chest Wall: decrease expansion with deep inspiration no tenderness and no deformity was found on exam, no costochondral pain or discomfort. Heart: Regular rate and rhythm, S1, S2 normal, no murmur, rub or gallop. Back: Symmetric, no curvature, ROM normal, no CVA tenderness. Abdomen: soft positive bowel sounds slight discomfort and tenderness left lower quadrant and mid lower abdominal region area with no rebound or rigidity. No masses. Extremities: Extremities normal, atraumatic, no cyanosis or edema. Pulses: 2+ and symmetric. Skin: Skin color, texture, tugor normal, no rashes or lesions. Neurologic: Alert Significantly confused cranial nerves II through XII intact, no motor deficit, positive normal gait. Assessment and plan 1. Fall secondary to loss of balance, closed head injury with negative CAT scan for bleed or acute abnormality. PT and OT consults. 2. Recent hospitalization for UTI and sepsis, acute diverticulitis and metabolic encephalopathy, stable. Patient continued on Levaquin and Flagyl to complete course. 3. Severe debility with generalized weakness and gait dysfunction secondary to previous fracture fractures and surgeries to the left leg, generalized osteoarthritis. 4. Compression T12. 5. Hypothyroidism. Levothyroxine 25 MCG's by mouth daily 6. Rheumatoid arthritis with joint deformities. Patient is normally on ibuprofen and Tylenol for pain. 7. GI prophylaxis. Protonix. 8. DVT prophylaxis: Early mobilization and knee-high TESSA hose. CODE STATUS: Full code. Patient placed as observation status. Discharge Medications Acetaminophen [Tylenol] 650 mg PO Q6H PRN 05/06/21 [History] Levothyroxine Sodium 25 mcg PO DAILY 05/06/21 [History] Meclizine [Antivert] 12.5 mg PO BID PRN #14 tablet 04/02/22 [Rx] Levofloxacin [Levaquin] 500 mg PO DAILY 5 Days #5 tab 04/07/22 [Rx] Acetaminophen Tab [Tylenol] 650 mg PO Q6HR PRN tab 04/08/22 [Rx] HYDROcodone/APAP 5-325MG [[place] 5-325] 1 each PO Q6HR PRN #12 tab 04/08/22 [Rx] metroNIDAZOLE [Flagyl] 250 mg PO BID #10 tab 04/08/22 [Rx] Discharge Plan [facility] for subacute rehab. Greater than 35 minutes was utilized and coordinating patient's discharge. Impression and plan of care have been directed as dictated by the signing physician. Tara Lagunas nurse practitioner acting as scribe for signing physician. Past Medical History Past Medical History: Chest Pain / Angina, Osteoarthritis (OA), Thyroid Disorder Additional Past Medical History / Comment(s): kidney stones, cervical pain, History of Any Multi-Drug Resistant Organisms: None Reported Past Surgical History: Appendectomy, Orthopedic Surgery Additional Past Surgical History / Comment(s): mult. surgeries left leg for shattered femur, PAIN CLINIC PROCEDURES Past Anesthesia/Blood Transfusion Reactions: Motion Sickness Past Psychological History: No Psychological Hx Reported Smoking Status: Never smoker Past Alcohol Use History: None Reported Past Drug Use History: None Reported - Past Family History Mother Family Medical History: No Reported History Medications and Allergies Home Medications Medication Instructions Recorded Confirmed Type Acetaminophen [Tylenol] 650 mg PO Q6H PRN 05/06/21 04/07/22 History Levothyroxine Sodium 25 mcg PO DAILY 05/06/21 04/07/22 History Meclizine [Antivert] 12.5 mg PO BID PRN #14 tablet 22 04/07/22 Rx Levofloxacin [Levaquin] 500 mg PO DAILY 5 Days #5 tab 04/07/22 04/07/22 Rx Acetaminophen Tab [Tylenol] 650 mg PO Q6HR PRN tab 04/08/22 Rx HYDROcodone/APAP 5-325MG [[place] 1 each PO Q6HR PRN #12 tab 04/08/22 Rx 5-325] metroNIDAZOLE [Flagyl] 250 mg PO BID #10 tab 04/08/22 04/07/22 Rx Allergies Allergy/AdvReac Type Severity Reaction Status Date / Time Penicillins Allergy Rash/Hives Verified 04/07/22 18:11 all over body Physical Exam Vitals: Vital Signs Temp Pulse Resp BP Pulse Ox 04/08/22 06:00 14 121/52 04/08/22 05:00 79 16 120/55 98 04/08/22 00:24 99.9 F H 04/08/22 00:22 100 18 134/74 97 04/07/22 22:26 100 18 153/104 97 04/07/22 22:24 100.6 F H 04/07/22 21:00 102 H 18 140/100 97 04/07/22 18:00 105 H 18 150/100 97 04/07/22 16:39 98.2 F 94 18 135/69 99 Intake and Output 04/07/22 04/08/22 04/08/22 22:59 06:59 14:59 Other: Weight 60.328 kg
[2022-04-08] MEDS ORDERED: LEVOFLOXACIN 500 MG TAB PO SCH (09:00)
[2022-04-08] MEDS ORDERED: metroNIDAZOLE 250 MG TABLET PO SCH (09:00)
[2022-04-08 12:48] VITALS: RESP 18
[2022-04-08 14:42] VITALS: BP 142/84; PULSE 81
[2022-04-09] MEDS ORDERED: PANTOPRAZOLE 40 MG TABLET PO SCH (07:30)
== END 2022-04-08 14:42 ==
LOC: EC 16:36 → 6NMEDSUR 22:49
PROVIDERS: ADMIT Internal Medicine Geriatric Medicine; ATTEND Internal Medicine Geriatric Medicine
DX: S09.90XA Unspecified injury of head, initial encounter (principal); W18.30XA Fall on same level, unspecified, initial encounter; R53.1 Weakness; R26.9 Unspecified abnormalities of gait and mobility; E03.9 Hypothyroidism, unspecified; M54.2 Cervicalgia; K57.90 Diverticulosis of intestine, part unspecified, without perforation or abscess without bleeding; Z87.440 Personal history of urinary (tract) infections; M15.9 Polyosteoarthritis, unspecified; M06.9 Rheumatoid arthritis, unspecified; Z79.890 Hormone replacement therapy; Z88.0 Allergy status to penicillin; Z87.442 Personal history of urinary calculi; Z87.81 Personal history of (healed) traumatic fracture; Z82.0 Family history of epilepsy and other diseases of the nervous system; Z80.3 Family history of malignant neoplasm of breast
CPT/HCPCS: 99285; 97162; 97166; 70450; G0378 ×2

== ENCOUNTER 2023-06-14 08:47 | Inpatient (IN) | payer MEDICARE ==
--- NOTE | 2023-06-14 09:27 | ED ---
General Adult HPI - General Chief complaint: Chest Pain Stated complaint: cardiac, chest pain, leg pain Time Seen by Provider: 06/14/23 08:49 Source: patient, EMS, RN notes reviewed, old records reviewed Mode of arrival: EMS Limitations: no limitations - History of Present Illness Initial comments: 82-year-old female presenting for evaluation of chest pain. Patient has had intermittent chest pain in the center of her chest over the past 24 hours. She also reports mild dyspnea. She reports no fever, denies cough. She also complains of bilateral lower extremity edema and intermittent pain in the right lower extremity with worsening edema. No fever. No history of DVT. - Related Data Home Medications Medication Instructions Recorded Confirmed Acetaminophen [Tylenol] 650 mg PO Q6H PRN 05/06/21 04/07/22 Levothyroxine Sodium 25 mcg PO DAILY 05/06/21 04/07/22 Previous Rx's Medication Instructions Recorded Meclizine [Antivert] 12.5 mg PO BID PRN #14 tablet 04/02/22 levoFLOXacin [Levaquin] 500 mg PO DAILY 5 Days #5 tab 04/07/22 Acetaminophen Tab [Tylenol] 650 mg PO Q6HR PRN tab 04/08/22 HYDROcodone/APAP 5-325MG [[place] 1 each PO Q6HR PRN #12 tab 04/08/22 5-325] metroNIDAZOLE [Flagyl] 250 mg PO BID #10 tab 04/08/22 Allergies Allergy/AdvReac Type Severity Reaction Status Date / Time Penicillins Allergy Rash/Hives Verified 06/14/23 08:59 all over body Review of Systems ROS Statement: Those systems with pertinent positive or pertinent negative responses have been documented in the HPI. ROS Other: All systems not noted in ROS Statement are negative. Past Medical History Past Medical History: Chest Pain / Angina, Osteoarthritis (OA), Thyroid Disorder Additional Past Medical History / Comment(s): kidney stones, cervical pain, History of Any Multi-Drug Resistant Organisms: None Reported Past Surgical History: Appendectomy, Orthopedic Surgery Additional Past Surgical History / Comment(s): mult. surgeries left leg for shattered femur, PAIN CLINIC PROCEDURES Past Anesthesia/Blood Transfusion Reactions: Motion Sickness Past Psychological History: No Psychological Hx Reported Smoking Status: Never smoker Past Alcohol Use History: None Reported Past Drug Use History: None Reported - Past Family History Mother Family Medical History: No Reported History General Exam Limitations: no limitations General appearance: alert, in no apparent distress Head exam: Present: atraumatic, normocephalic Eye exam: Present: normal appearance, PERRL ENT exam: Present: normal exam Neck exam: Present: normal inspection. Absent: tenderness, meningismus Respiratory exam: Present: normal lung sounds bilaterally. Absent: respiratory distress Cardiovascular Exam: Present: regular rate, normal rhythm, systolic murmur GI/Abdominal exam: Present: soft. Absent: distended, tenderness Extremities exam: Present: pedal edema. Absent: calf tenderness Neurological exam: Present: alert, oriented X3, CN II-XII intact. Absent: motor sensory deficit Psychiatric exam: Present: normal affect, normal mood Skin exam: Present: warm, dry, intact. Absent: cyanosis, diaphoretic Course Vital Signs 06/14/23 08:50 Temperature 97.2 F L Pulse Rate 95 Respiratory 18 Rate Blood Pressure 173/91 O2 Sat by Pulse 96 Oximetry Medical Decision Making - Medical Decision Making Was pt. sent in by a medical professional or institution (BOOM Garcia, AGENCY SERVICE COORDINATOR, urgent care, hospital, or usp...) When possible be specific @ -No Did you speak to anyone other than the patient for history (EMS, parent, family, police, friend...)? What history was obtained from this source @ -No Did you review nursing and triage notes (agree or disagree)? Why? @ -I reviewed and agree with nursing and triage notes Were old charts reviewed (outside hosp., previous admission, EMS record, old EKG, old radiological studies, urgent care reports/EKG's, usp records)? Report findings @ -No old charts were reviewed Differential Diagnosis (chest pain, altered mental status, abdominal pain women, abdominal pain men, vaginal bleeding, weakness, fever, dyspnea, syncope, headache, dizziness, GI bleed, back pain, seizure, CVA, palpatations, mental health, musculoskeletal)? @ Differential Chest Pain: Stable Angina, Unstable Angina, STEMI, NSTEMI Aortic Dissection, Pneumothorax, Musculoskeletal, Esophageal Spasm GERD, Cholecystitis, Pancreatitis, Zoster, this is not meant to be an all-inclusive list. EKG interpreted by me (3pts min.). @Sinus rhythm rate of 90, MD interval 180, QRS duration 73, QTC [address] segment elevation. X-rays interpreted by me (1pt min.). @ -No focal pneumonia, interpreted as interstitial pneumonitis CT interpreted by me (1pt min.). @ -None done U/S interpreted by me (1pt. min.). @ -Right lower extremity ultrasound positive for DVT What testing was considered but not performed or refused? (CT, X-rays, U/S, labs)? Why? @ -None What meds were considered but not given or refused? Why? @ -None Did you discuss the management of the patient with other professionals (professionals i.e. , PA, AGENCY SERVICE COORDINATOR, lab, RT, psych nurse, school social worker, technical maintenance technician, teacher, senior escrow officer, case assistant)? Give summary @ -Case discussed with sheet Was smoking cessation discussed for >3mins.? @ -No Was critical care preformed (if so, how long)? @ -No Were there social determinants of health that impacted care today? How? (Homelessness, low income, unemployed, alcoholism, drug addiction, transportation, low edu. Level, literacy, decrease access to med. care, residential, rehab)? @ -No Was there de-escalation of care discussed even if they declined (Discuss DNR or withdrawal of care, Hospice)? DNR status @ -No What co-morbidities impacted this encounter? (DM, HTN, Smoking, COPD, CAD, Cancer, CVA, ARF, Chemo, Hep., AIDS, mental health diagnosis, sleep apnea, morbid obesity)? @ -None Was patient admitted / discharged? Hospital course, mention meds given and route, prescriptions, significant lab abnormalities, going to OR and other pertinent info. @ -82-year-old female with right leg pain and intermittent chest discomfort. EKG sinus rhythm without ST segment elevation. Patient has a negative initial troponin. Normal laboratory testing otherwise. Ultrasound is positive for DVT. She started on heparin in the emergency department. She will be admitted to internal medicine. Undiagnosed new problem with uncertain prognosis? @ -No Drug Therapy requiring intensive monitoring for toxicity (Heparin, Nitro, Insulin, Cardizem)? @ -No Were any procedures done? @ -No Diagnosis/symptom? @ -[Acute DVT, intermittent chest pain Acute, or Chronic, or Acute on Chronic? @ -Acute Uncomplicated (without systemic symptoms) or Complicated (systemic symptoms)? @ -default Side effects of treatment? @ -No Exacerbation, Progression, or Severe Exacerbation? @ -No Poses a threat to life or bodily function? How? (Chest pain, [place], [place], pneumonia, PE, COPD, DKA, ARF, appy, cholecystitis, CVA, Diverticulitis, Homicidal, Suicidal, threat to staff... and all critical care pts) @ -Yes, DVT, chest pain - Lab Data Result diagrams: 06/14/23 09:11 06/14/23 09:11 Lab Results 06/14/23 06/14/23 06/14/23 Range/Units 09:11 09:11 09:11 WBC 7.2 (3.8-10.6) k/uL RBC 4.43 (3.80-5.40) m/uL Hgb 13.0 (11.4-16.0) gm/dL Hct 39.9 (34.0-46.0) % MCV 90.1 (80.0-100.0) fL MCH 29.4 (25.0-35.0) pg MCHC 32.6 (31.0-37.0) g/dL RDW 14.2 (11.5-15.5) % Plt Count 283 (150-450) k/uL MPV 7.8 Neutrophils % 75 % Lymphocytes % 16 % Monocytes % 5 % Eosinophils % 2 % Basophils % 0 % Neutrophils # 5.4 (1.3-7.7) k/uL Lymphocytes # 1.2 (1.0-4.8) k/uL Monocytes # 0.4 (0-1.0) k/uL Eosinophils # 0.2 (0-0.7) k/uL Basophils # 0.0 (0-0.2) k/uL PT 11.1 (9.0-12.0) sec INR 1.1 (<1.2) APTT 23.0 (22.0-30.0) sec Sodium 138 (137-145) mmol/L Potassium 3.9 (3.5-5.1) mmol/L Chloride 110 H (98-107) mmol/L Carbon Dioxide 19 L (22-30) mmol/L Anion Gap 9 mmol/L BUN 11 (7-17) mg/dL Creatinine 0.85 (0.52-1.04) mg/dL Est GFR (CKD-EPI)AfAm 75 (>60 ml/min/1.73 sqM) Est GFR (CKD-EPI)NonAf 65 (>60 ml/min/1.73 sqM) Glucose 95 (74-99) mg/dL Calcium 10.7 H (8.4-10.2) mg/dL Magnesium 2.1 (1.6-2.3) mg/dL Total Bilirubin 0.7 (0.2-1.3) mg/dL AST 15 (14-36) U/L ALT 11 (4-34) U/L Alkaline Phosphatase 99 (38-126) U/L Troponin I (0.000-0.034) ng/mL NT-Pro-B Natriuret Pep 186 pg/mL Total Protein 6.8 (6.3-8.2) g/dL Albumin 3.6 (3.5-5.0) g/dL 06/14/23 Range/Units 09:11 WBC (3.8-10.6) k/uL RBC (3.80-5.40) m/uL Hgb (11.4-16.0) gm/dL Hct (34.0-46.0) % MCV (80.0-100.0) fL MCH (25.0-35.0) pg MCHC (31.0-37.0) g/dL RDW (11.5-15.5) % Plt Count (150-450) k/uL MPV Neutrophils % % Lymphocytes % % Monocytes % % Eosinophils % % Basophils % % Neutrophils # (1.3-7.7) k/uL Lymphocytes # (1.0-4.8) k/uL Monocytes # (0-1.0) k/uL Eosinophils # (0-0.7) k/uL Basophils # (0-0.2) k/uL PT (9.0-12.0) sec INR (<1.2) APTT (22.0-30.0) sec Sodium (137-145) mmol/L Potassium (3.5-5.1) mmol/L Chloride (98-107) mmol/L Carbon Dioxide (22-30) mmol/L Anion Gap mmol/L BUN (7-17) mg/dL Creatinine (0.52-1.04) mg/dL Est GFR (CKD-EPI)AfAm (>60 ml/min/1.73 sqM) Est GFR (CKD-EPI)NonAf (>60 ml/min/1.73 sqM) Glucose (74-99) mg/dL Calcium (8.4-10.2) mg/dL Magnesium (1.6-2.3) mg/dL Total Bilirubin (0.2-1.3) mg/dL AST (14-36) U/L ALT (4-34) U/L Alkaline Phosphatase (38-126) U/L Troponin I <0.012 (0.000-0.034) ng/mL NT-Pro-B Natriuret Pep pg/mL Total Protein (6.3-8.2) g/dL Albumin (3.5-5.0) g/dL Disposition Clinical Impression: Chest pain, DVT (deep venous thrombosis) Disposition: ADMITTED IP TO THIS HOSP Condition: Stable Is patient prescribed a controlled substance at d/c from ED?: No Referrals: Keron Littlejohn MD [Primary Care Provider] - 1-2 days Time of Disposition: 10:50
[2023-06-14 09:31] LABS: Basophils % (A) 0 %; Eosinophils # (A) 0.2 k/uL (0-0.7); Eosinophils % (A) 2 %; HCT 39.9 % (34.0-46.0); Lymphocytes # (A) 1.2 k/uL (1.0-4.8); Lymphocytes % (A) 16 %; MCH 29.4 pg (25.0-35.0); MCHC 32.6 g/dL (31.0-37.0); MCV 90.1 fL (80.0-100.0); Mean Platelet Volume 7.8; Monocytes # (A) 0.4 k/uL (0-1.0); Monocytes % (A) 5 %; Neutrophils # (A) 5.4 k/uL (1.3-7.7); Neutrophils % (A) 75 %; Platelet Count 283 k/uL (150-450); RBC 4.43 m/uL (3.80-5.40); RDW 14.2 % (11.5-15.5); WBC 7.2 k/uL (3.8-10.6)
[2023-06-14 09:53] LABS: ALT 11 U/L (4-34); AST 15 U/L (14-36); African American GFR (CKD) 75 (>60 ml/min/1.73 sqM); Albumin 3.6 g/dL (3.5-5.0); Alkaline Phosphatase 99 U/L (38-126); Anion Gap 9 mmol/L; Blood Urea Nitrogen 11 mg/dL (7-17); Calcium 10.7 mg/dL (8.4-10.2); Carbon Dioxide 19 mmol/L (22-30); Chloride 110 mmol/L (98-107); Glucose 95 mg/dL (74-99); Magnesium 2.1 mg/dL (1.6-2.3); Non-African American GFR(CKD) 65 (>60 ml/min/1.73 sqM); Sodium 138 mmol/L (137-145); Total Bilirubin 0.7 mg/dL (0.2-1.3); Total Protein 6.8 g/dL (6.3-8.2)
[2023-06-14 09:54] LABS: Potassium 3.9 mmol/L (3.5-5.1)
--- NOTE | 2023-06-14 09:59 | XR ---
EXAMINATION TYPE: XR chest 2V DATE OF EXAM: 06/14/2023 COMPARISON: 06/04/2021 TECHNIQUE: PA and lateral views submitted. HISTORY: Chest pain FINDINGS: The lungs are clear and there is no pneumothorax, pleural effusion, or focal pneumonia. Heart size normal and no overt failure. Osseous structures demonstrate hypertrophic and degenerative changes of the spine. Severe compression fractures in the thoracic spine kyphosis. Coarsened interstitium. Left shoulder arthropathy with diffuse osteopenia. Calcification along the left humeral head associated wi th calcific tendinosis. IMPRESSION: 1. Diffuse interstitial pattern correlate for an interstitial pneumonitis.
[2023-06-14 10:05] LABS: NT-Pro-B-Type Natriuretic Pept 186 pg/mL
[2023-06-14 10:23] LABS: INR 1.1 (<1.2); Prothrombin Time 11.1 sec (9.0-12.0)
--- NOTE | 2023-06-14 10:32 | US ---
EXAMINATION TYPE: US venous doppler duplex LE RT DATE OF EXAM: 06/14/2023 10:26 AM COMPARISON: NONE CLINICAL INDICATION: Female, 82 years old with history of pain/swelling; right leg pain and edema SIDE PERFORMED: right TECHNIQUE: The lower extremity deep venous system is examined utilizing real time linear array sonog efrain with graded compression, doppler sonography and color-flow sonography. VESSELS IMAGED: Common Femoral Vein Deep Femoral Vein Greater Saphenous Vein * Femoral Vein Popliteal Vein Small Saphenous Vein * Proximal Calf Veins (* superficial vessels) Right Leg: *positive for DVT right popliteal vein. Patient unable to tolerate compressions at lower femoral vein IMPRESSION: 1. Examination is positive for acute DVT right popliteal vein.
[2023-06-14] MEDS ORDERED: HEPARIN SODIUM 1,000 UN/ML (10ML VL) IV PRN (10:42)
[2023-06-14] MEDS ORDERED: HEPARIN SODIUM 1,000 UN/ML (10ML VL) IV ONE (10:42)
[2023-06-14] MEDS ORDERED: NALOXONE 0.4 MG/ML 1 ML VIAL IV PRN (10:43)
[2023-06-14] MEDS ORDERED: MORPHINE SULFATE 2 MG/ML SYRINGE IVP STA (10:51)
[2023-06-14] MEDS: HEPARIN SOD,PORK IN 0.45% NACL 25,000 UNIT in 0.45% NACL 1 250ML.BAG IV SCH (11:51)
[2023-06-14] MEDS: HYDROcodone/APAP 5-325MG 1 EACH TAB PO PRN (21:52)
[2023-06-14] MEDS: DONEPEZIL 10 MG TAB PO SCH (21:53)
--- NOTE | 2023-06-15 01:59 | P.HPIM ---
History of Present Illness H&P Date: 06/14/23 Chief Complaint: Right leg pain Patient is a 82-year-old female with a known history of osteoarthritis, hypothyroidism and history of prior pain clinic procedures presents to ER with complaints of intermittent chest pain since yesterday. Patient follows with Dr. patino as an outpatient. Patient states that she woke up last night with right lower extremity pain and is also complaining of increased swelling of the right leg. Denies any fever or chills. No redness. No tingling or numbness sensation in the legs. Patient has been symptoms since yesterday. No nausea vomiting abdominal pain or diarrhea. Denies any recent illnesses. Chest x-ray showed diffuse interstitial pattern correlate for interstitial pneumonitis. EKG showed sinus rhythm Duplex scan showed positive for acute DVT right popliteal vein. Laboratory showed WBC 7.2 hemoglobin 13.0 and platelets 283 Sodium 138 potassium 3.9 chloride 110 bicarb is 19 BUN 11 creatinine 0.85 Calcium 10.7 magnesium 2.1 Troponin x3 negative and proBNP is 186. 2D echocardiogram on 05/06/2021 showed left ventricular size is normal and borderline concentric left ventricular hypertrophy. Ejection fraction 55 to 60% and LA is moderately dilated. Aneurysmal interatrial septum. Acute right lower extremity DVT. Ultrasound showed right popliteal vein acute DVT. Right lower extremity pain and swelling x1 day Intermittent chest pain Rheumatoid arthritis with joint deformities. Hypothyroidism History of renal stones History of left femur fracture and multiple surgeries and pain during procedures. History of T12 compression fracture Prior history of urinary tract infection Dementia DVT prophylaxis patient is already on heparin drip. Plan: Patient will be continued on heparin drip. Continue with telemetry monitoring and troponin x3 negative. Cardiology was consulted for evaluation of chest pain. Continue with pain management and home medications. Follow-up closely. PT OT to be consulted. Past Medical History Past Medical History: Chest Pain / Angina, Osteoarthritis (OA), Thyroid Disorder Additional Past Medical History / Comment(s): kidney stones, cervical pain, History of Any Multi-Drug Resistant Organisms: None Reported Past Surgical History: Appendectomy, Orthopedic Surgery Additional Past Surgical History / Comment(s): mult. surgeries left leg for shattered femur, PAIN CLINIC PROCEDURES Past Anesthesia/Blood Transfusion Reactions: Motion Sickness Past Psychological History: No Psychological Hx Reported Smoking Status: Never smoker Past Alcohol Use History: None Reported Past Drug Use History: None Reported - Past Family History Mother Family Medical History: No Reported History Medications and Allergies Home Medications Medication Instructions Recorded Confirmed Type Donepezil [Aricept] 10 mg PO HS 06/14/23 06/14/23 History HYDROcodone/APAP 5-325MG [[place] 1 tab PO Q6HR PRN 06/14/23 06/14/23 History 5-325] predniSONE 10 mg PO PC-BRKFST 06/14/23 06/14/23 History Allergies Allergy/AdvReac Type Severity Reaction Status Date / Time Penicillins Allergy Rash/Hives Verified 06/14/23 11:05 all over body Physical Exam Vitals: Vital Signs Temp Pulse Resp BP Pulse Ox 06/14/23 18:58 97.9 F 107 H 16 135/65 96 06/14/23 08:50 97.2 F L 95 18 173/91 96 Intake and Output 06/14/23 06/14/23 06/14/23 06:59 14:59 22:59 Other: Weight 142.8 kg Results CBC & Chem 7: 06/14/23 09:11 06/14/23 09:11 Labs: Abnormal Lab Results - Last 24 Hours (Table) 06/14/23 06/14/23 06/14/23 Range/Units 09:11 16:26 18:18 APTT >200.0 H* >200.0 H* (22.0-30.0) sec Chloride 110 H (98-107) mmol/L Carbon Dioxide 19 L (22-30) mmol/L Calcium 10.7 H (8.4-10.2) mg/dL Thrombosis Risk Factor Assmnt - DVT/VTE Prophylaxis DVT/VTE Prophylaxis: Pharmacologic Prophylaxis ordered Assessment and Plan Time with Patient: Greater than 30
[2023-06-15 02:06] LABS: Basophils % (A) 1 %; Eosinophils # (A) 0.2 k/uL (0-0.7); Eosinophils % (A) 3 %; HCT 34.1 % (34.0-46.0); HGB 11.4 gm/dL (11.4-16.0); Lymphocytes # (A) 1.5 k/uL (1.0-4.8); Lymphocytes % (A) 21 %; MCHC 33.4 g/dL (31.0-37.0); Monocytes # (A) 0.4 k/uL (0-1.0); Monocytes % (A) 5 %; Neutrophils # (A) 4.7 k/uL (1.3-7.7); Neutrophils % (A) 68 %; Platelet Count 273 k/uL (150-450); RBC 3.79 m/uL (3.80-5.40); RDW 14.1 % (11.5-15.5); WBC 6.9 k/uL (3.8-10.6)
[2023-06-15] MEDS: HEPARIN SOD,PORK IN 0.45% NACL 25,000 UNIT in 0.45% NACL 1 250ML.BAG IV SCH ×2 (03:44→09:50)
--- NOTE | 2023-06-15 10:00 | P.CRDCN ---
History of Present Illness History of present illness: HISTORY OF PRESENT ILLNESS: This is a 82-year-old female with a past medical history significant for nonobstructive coronary artery disease and osteoarthritis. Patient follows in the office with Dr. Jung. We have been asked to see the patient in consultation for chest pain. Patient examined at the bedside. Patient states she presented to the emergency room due to pain in her right leg. She states she developed pain in her leg and was researching this online which she thought she may have a blood clot so she came to the emergency room for further evaluation. She states that she had some mild chest pain at this time as well. She states that she believes it was because she was anxious. She denies any chest pain or pressure at the time of examination. The patient was found to have a right lower extremity DVT. The patient denies any history of DVT. She denies any recent travel or prolonged immobility. * EKG reveals sinus mechanism with no signs of acute ischemia * Chest xray diffuse interstitial pattern correlate for interstitial pneumonitis. * Venous Doppler: Positive for DVT in right popliteal vein * Laboratory data: WBC 7.2. Hemoglobin 13.0. Platelet count 283. Sodium 138. Potassium 3.9. BUN 11. Creatinine 0.85 * Current home cardiac medications include none * Most recent echocardiogram obtained in April 2021 revealed an ejection fraction 55-60%, trace to mild MR, mild pulmonary hypertension * Cardiac catheterization history: April 2021 revealing 20% ostial left main, aneurysm and mid left main, 40% proximal LAD, dominant RCA and circumflex without significant disease, normal filling pressures. No gradient. REVIEW OF SYSTEMS: At the time of my exam: CONSTITUTIONAL: Denies fever or chills. HEENT: Denies blurred vision, vision changes, or eye pain. Denies hemoptysis CARDIOVASCULAR: Denies chest pain. Denies orthopnea. Denies PND. Denies palpitations RESPIRATORY: Denies shortness of breath. GASTROINTESTINAL: Denies abdominal pain. Denies nausea or vomiting. HEMATOLOGIC: Denies bleeding disorders. GENITOURINARY: Denies any blood in urine. SKIN: Denies pruitis. Denies rash. PHYSICAL EXAM: VITAL SIGNS: Reviewed. GENERAL: Well-developed in no acute distress. HEENT: Head is normocephalic. Pupils are equal, round. Sclerae anicteric. Mucous membranes of the mouth are moist. Neck supple. No JVD or thyromegaly LUNGS: Respirations even and unlabored. Lungs essentially clear to auscultation bilaterally. HEART: Regular rate and rhythm. S1 and S2 heard. ABDOMEN: Soft. Nondistended. Nontender. EXTREMITIES: Normal range of motion. No clubbing or cyanosis. Peripheral pulses intact. No lower extremity edema NEUROLOGIC: Awake and alert. Oriented x 3. ASSESSMENT: Chest pain, atypical, troponin negative 3 Right lower extremity DVT Non-obstructive coronary artery disease, per cardiac catheterization in 2020 Osteoarthritis Morbid obesity: BMI 54.0 PLAN: An acute coronary event has been ruled out Obtain 2-D echo to assess cardiac structure and function Discontinue IV heparin. Begin Eliquis Continue additional cardiac medications Further recommendations pending patient course Nurse practitioner note has been reviewed by physician. Signing provider agrees with the documented findings, assessment, and plan of care. Past Medical History Past Medical History: Chest Pain / Angina, Osteoarthritis (OA), Thyroid Disorder Additional Past Medical History / Comment(s): kidney stones, cervical pain, History of Any Multi-Drug Resistant Organisms: None Reported Past Surgical History: Appendectomy, Orthopedic Surgery Additional Past Surgical History / Comment(s): mult. surgeries left leg for shattered femur, PAIN CLINIC PROCEDURES Past Anesthesia/Blood Transfusion Reactions: Motion Sickness Past Psychological History: No Psychological Hx Reported Smoking Status: Never smoker Past Alcohol Use History: None Reported Past Drug Use History: None Reported - Past Family History Mother Family Medical History: No Reported History Medications and Allergies Home Medications Medication Instructions Recorded Confirmed Type Donepezil [Aricept] 10 mg PO HS 06/14/23 06/14/23 History HYDROcodone/APAP 5-325MG [[place] 1 tab PO Q6HR PRN 06/14/23 06/14/23 History 5-325] predniSONE 10 mg PO PC-BRKFST 06/14/23 06/14/23 History Allergies Allergy/AdvReac Type Severity Reaction Status Date / Time Penicillins Allergy Rash/Hives Verified 06/14/23 11:05 all over body Physical Exam Vitals: Vital Signs Temp Pulse Resp BP Pulse Ox 06/14/23 08:50 97.2 F L 95 18 173/91 96 Intake and Output 06/13/23 06/14/23 06/14/23 22:59 06:59 14:59 Other: Weight 142.8 kg Results 06/15/23 01:53 06/14/23 09:11 Cardiac Enzymes 06/14/23 06/14/23 Range/Units 09:11 09:11 AST 15 (14-36) U/L Troponin I <0.012 (0.000-0.034) ng/mL Coagulation 06/14/23 Range/Units 09:11 PT 11.1 (9.0-12.0) sec APTT 23.0 (22.0-30.0) sec CBC 06/14/23 Range/Units 09:11 WBC 7.2 (3.8-10.6) k/uL RBC 4.43 (3.80-5.40) m/uL Hgb 13.0 (11.4-16.0) gm/dL Hct 39.9 (34.0-46.0) % Plt Count 283 (150-450) k/uL Comprehensive Metabolic Panel 06/14/23 Range/Units 09:11 Sodium 138 (137-145) mmol/L Potassium 3.9 (3.5-5.1) mmol/L Chloride 110 H (98-107) mmol/L Carbon Dioxide 19 L (22-30) mmol/L BUN 11 (7-17) mg/dL Creatinine 0.85 (0.52-1.04) mg/dL Glucose 95 (74-99) mg/dL Calcium 10.7 H (8.4-10.2) mg/dL AST 15 (14-36) U/L ALT 11 (4-34) U/L Alkaline Phosphatase 99 (38-126) U/L Total Protein 6.8 (6.3-8.2) g/dL Albumin 3.6 (3.5-5.0) g/dL Current Medications Generic Name Dose Route Start Last Admin Trade Name Freq PRN Reason Stop Dose Admin Heparin Sodium (Porcine) 0 unit 06/14/23 10:42 Heparin Sodium 1,000 Un/Ml (10ml Vl) IV PER PROTOCOL PRN Low PTT Protocol Heparin Sodium/Sodium Chloride 250 mls @ 22.999 mls/hr 06/14/23 10:45 25,000 unit/ Sodium Chloride IV .[id number] [facility] Protocol 16.106 UNITS/KG/HR Naloxone HCl 0.2 mg 06/14/23 10:43 Naloxone 0.4 Mg/Ml 1 Ml Vial IV Q2M PRN Opioid Reversal Intake and Output 06/13/23 06/14/23 06/14/23 22:59 06:59 14:59 Other: Weight 142.8 kg Patient Weight 06/15/23 06:59 Weight 142.8 kg 06/14/23 09:11 06/14/23 09:11
[2023-06-15] MEDS: Apixaban Initiation Dose--VTE 5 MG TAB PO SCH ×2 (10:09→21:59)
[2023-06-15 10:45] LABS: African American GFR (CKD) 65 (>60 ml/min/1.73 sqM); Anion Gap 6 mmol/L; Blood Urea Nitrogen 13 mg/dL (7-17); Calcium 10.6 mg/dL (8.4-10.2); Carbon Dioxide 24 mmol/L (22-30); Chloride 107 mmol/L (98-107); Glucose 135 mg/dL (74-99); Non-African American GFR(CKD) 57 (>60 ml/min/1.73 sqM); Potassium 4.1 mmol/L (3.5-5.1); Sodium 137 mmol/L (137-145)
[2023-06-15] MEDS: HYDROcodone/APAP 5-325MG 1 EACH TAB PO PRN (15:22)
--- NOTE | 2023-06-15 16:56 | CA ---
Transthoracic Echo Report Name: Deysi Zimmer Age: 82 Gender: F : 1940 Exam Date: 06/15/2023 14:10 Exam Location: [facility] Ht (in): 64 Wt (lb): 132 Ordering Physician: Yuki Appiah Attending/Referring Phys: [id number], Td Caustic Preparer Karlo Gay Procedure CPT: Indications: LV function Cardiac Hx: Technical Quality: Fair Contrast 1: Total Dose (mL): Contrast 2: Total Dose (mL): MEASUREMENTS (Male / Female) Normal Values 2D ECHO LV Diastolic Diameter PLAX 3.7 cm 4.2 - 5.9 / 3.9 - 5.3 cm LV Systolic Diameter PLAX 2.4 cm IVS Diastolic Thickness 1.1 cm 0.6 - 1.0 / 0.6 - 0.9 cm LVPW Diastolic Thickness 1.2 cm 0.6 - 1.0 / 0.6 - 0.9 cm LV Relative Wall Thickness 0.6 RV Internal Dim ED PLAX 2.9 cm LVOT Diameter 2.0 cm Aortic Root Diameter 3.4 cm LA Systolic Diameter LX 2.4 cm 3.0 - 4.0 / 2.7 - 3.8 cm LV Diastolic Volume MOD BP 34.2 cm??? 67 - 155 / 56 - 104 cm??? LV Systolic Volume MOD BP 20.2 cm??? 22 - 58 / 19 - 49 cm??? LV Ejection Fraction MOD BP 40.9 % >= 55 % LV Cardiac Index MOD BP 695.3 cm???/min???m??? LV Diastolic Volume MOD 4C 50.4 cm??? LV Systolic Volume MOD 4C 24.4 cm??? LV Ejection Fraction MOD 4C 51.7 % LV Cardiac Index MOD 4C 1297.3 cm???/min???m??? LV Diastolic Length 4C 5.8 cm LV Systolic Length 4C 5.3 cm LV Diastolic Volume MOD 2C 21.9 cm??? LV Systolic Volume MOD 2C 16.0 cm??? LV Ejection Fraction MOD 2C 26.7 % LV Cardiac Index MOD 2C 290.7 cm???/min???m??? LV Diastolic Length 2C 5.4 cm LV Systolic Length 2C 5.1 cm LA Volume 37.2 cm??? 18 - 58 / 22 - 52 cm??? Ascending Aorta Diameter 2.7 cm DOPPLER AV Peak Velocity 117.4 cm/s AV Peak Gradient 5.5 mmHg LVOT Peak Velocity 105.6 cm/s LVOT Peak Gradient 4.5 mmHg AV Area Cont Eq pk 2.9 cm??? MV Peak Velocity 117.9 cm/s MV Peak Gradient 5.6 mmHg MV Mean Velocity 56.6 cm/s MV Mean Gradient 1.6 mmHg MV Velocity Time Integral 28.7 cm Mitral E Point Velocity 82.6 cm/s Mitral A Point Velocity 99.9 cm/s Mitral E to A Ratio 0.8 MV Deceleration Time 263.8 ms MV E' Velocity 4.9 cm/s Mitral E to MV E' Ratio 16.7 TR Peak Velocity 284.5 cm/s TR Peak Gradient 32.4 mmHg Right Ventricular Systolic Press 37.5 mmHg PV Peak Velocity 103.8 cm/s PV Peak Gradient 4.3 mmHg FINDINGS Left Ventricle Normal LV size and wall thickness. Left ventricular ejection fraction is estimated at 55-60 %. Right Ventricle Normal right ventricular size. RVSP= 42mmhg. Right Atrium Normal right atrial size. Left Atrium Normal left atrial size. LA volume index= 23ml/m2 Mitral Valve Mild posterior MAC. Mild MR. Aortic Valve Trileaflet aortic valve. No aortic regurgitation. No aortic stenosis. Tricuspid Valve Structurally normal tricuspid valve. Mild TR. Pulmonic Valve Structurally normal pulmonic valve. No pulmonic regurgitation. Pericardium Normal pericardium. Aorta AO root med= 3.5cm CONCLUSIONS Normal LV systolic function Mild mitral and tricuspid regurgitation Previewed by: Dr. Alexi Gaona MD (Electronically Signed) Final Date: 15 June 2023 16:55
[2023-06-15] MEDS: DONEPEZIL 10 MG TAB PO SCH (21:59)
--- NOTE | 2023-06-16 05:51 | P.PN ---
Subjective Progress Note Date: 06/15/23 Patient is a 82-year-old female with a known history of osteoarthritis, hypothyroidism and history of prior pain clinic procedures presents to ER with complaints of intermittent chest pain since yesterday. Patient follows with Dr. patino as an outpatient. Patient states that she woke up last night with right lower extremity pain and is also complaining of increased swelling of the right leg. Denies any fever or chills. No redness. No tingling or numbness sensation in the legs. Patient has been symptoms since yesterday. No nausea vomiting abdominal pain or diarrhea. Denies any recent illnesses. Chest x-ray showed diffuse interstitial pattern correlate for interstitial pneumonitis. EKG showed sinus rhythm Duplex scan showed positive for acute DVT right popliteal vein. Laboratory showed WBC 7.2 hemoglobin 13.0 and platelets 283 Sodium 138 potassium 3.9 chloride 110 bicarb is 19 BUN 11 creatinine 0.85 Calcium 10.7 magnesium 2.1 Troponin x3 negative and proBNP is 186. 2D echocardiogram on 05/06/2021 showed left ventricular size is normal and borderline concentric left ventricular hypertrophy. Ejection fraction 55 to 60% and LA is moderately dilated. Aneurysmal interatrial septum. 06/15/2023 Patient seen and evaluated in follow-up today reporting severe intense pain in the right lower extremity. Cardiology following an echo was ordered and pending. Patient denies any further chest pain at this time. Patient reports significant swelling and difficulty with ambulation and reports is unable to walk at this time. Patient continued on IV heparin which is being transitioned to eliquis for DVT. Will have physical therapy evaluate patient also consult case management is patient may require ECF due to significant lower extremity pain and inability to walk. Patient was ambulatory and occasionally used a walker prior to this sudden acute onset of pain due to the DVT. Will await PT/OT therapy evaluation. Patient is afebrile denies chest pain or shortness of breath. No reported nausea or vomiting and patient is tolerating diet. Review of systems: Constitutional: No reports of fatigue, fever, or chills Cardiovascular: No reports of chest pain or palpitations Respiratory: No reports of shortness of breath or cough GI: No reports of nausea, vomiting, or diarrhea : No reports of dysuria or retention Neurovascular: reports of significant weakness of the right lower extremity and swelling All medications have been reviewed Physical exam: Gen: This is a 82-year-old female who is awake, alert and oriented 3, well- developed, well-nourished HEENT: Head is atraumatic, normocephalic. Pupils equal, round. Sclerae is anicteric. NECK: Supple. No JVD. No lymphadenopathy. No thyromegaly. LUNGS: Clear to auscultation. No wheezes or rhonchi. No intercostal retracti ons. HEART: Regular rate and rhythm. No murmur. ABDOMEN: Soft. Bowel sounds are present. No masses. No tenderness. EXTREMITIES: No pedal edema. No calf tenderness. Right lower extremity with some swelling and severe sensitivity and intense pain on palpation of the popliteal region NEUROLOGICAL: Patient is awake, alert and oriented x3. Cranial nerves 2 through 12 are grossly intact. Diffusely weak Assessment: Acute right lower extremity DVT. Ultrasound showed right popliteal vein acute DVT. Right lower extremity pain and swelling x1 day Intermittent chest pain, ruled out ACS Rheumatoid arthritis with joint deformities. Hypothyroidism History of renal stones History of left femur fracture and multiple surgeries and pain during procedures. History of T12 compression fracture Prior history of urinary tract infection Dementia DVT prophylaxis patient is on heparin drip. Plan: Patient will be continued on heparin drip. Cardiology following an echo was ordered and pending. Patient being transitioned to [facility] and will verify coverage Patient reports inability to walk due to severe pain and swelling of the right lower extremity. Will have physical therapy evaluate the patient Consult placed to case management is patient may require rehab and will await PT notes. Patient will require more than 3 night hospitalization in the event she does goes ECF due to Medicare guidelines. Given patient's continued significant symptoms with continued severe pain and inability to ambulate patient will be made inpatient and will continue to monitor closely The impression and plan of care has been dictated by Melba Allen, Nurse Practitioner as directed. Dr. Carlos MD I have performed a history and examination and MDM of this patient, discussed the same with the dictator, and agree with the dictator's assessment and plan as written ,documented as a scribe. Based on total visit time, I have performed more than 50% of the visit. Objective - Vital Signs Vital signs: Vital Signs Temp 98.1 F 06/15/23 08:53 Pulse 91 06/15/23 08:53 Resp 18 06/15/23 08:53 BP 125/71 06/15/23 08:53 Pulse Ox 97 06/15/23 08:53 FiO2 Intake & Output 06/14/23 06/15/23 06/15/23 18:59 06:59 18:59 Intake Total 324.409 Output Total 0 Balance 324.409 Weight 142.8 kg Intake: Intake, IV Titration 174.409 Amount Heparin Sod,Pork in 0.45% 174.409 NaCl 25,000 unit In 0.45 % NaCl 1 250ml.bag @ 16. 106 UNITS/KG/HR 22.999 mls/hr IV .[id number] [facility] Rx #:[id number] Oral 150 Output: Urine 0 Other: Voiding Method Bedpan # Voids 0 - Labs CBC & Chem 7: 06/15/23 01:53 06/15/23 10:14 Labs: Abnormal Lab Results - Last 24 Hours (Table) 06/14/23 06/14/23 06/14/23 Range/Units 16:26 18:18 22:28 RBC (3.80-5.40) m/uL APTT >200.0 H* >200.0 H* 165.2 H* (22.0-30.0) sec 06/15/23 Range/Units 01:53 RBC 3.79 L (3.80-5.40) m/uL APTT (22.0-30.0) sec
[2023-06-16] MEDS: HYDROcodone/APAP 5-325MG 1 EACH TAB PO PRN ×2 (08:46→20:47)
--- NOTE | 2023-06-16 10:32 | P.PN ---
Subjective HISTORY OF PRESENT ILLNESS: This is a 82-year-old female with a past medical history significant for nonobstructive coronary artery disease and osteoarthritis. Patient follows in the office with Dr. Jung. We have been asked to see the patient in consultation for chest pain. Patient examined at the bedside. Patient states she presented to the emergency room due to pain in her right leg. She states she developed pain in her leg and was researching this online which she thought she may have a blood clot so she came to the emergency room for further evaluation. She states that she had some mild chest pain at this time as well. She states that she believes it was because she was anxious. She denies any chest pain or pressure at the time of examination. The patient was found to have a right lower extremity DVT. The patient denies any history of DVT. She denies any recent travel or prolonged immobility. * EKG reveals sinus mechanism with no signs of acute ischemia * Chest xray diffuse interstitial pattern correlate for interstitial pneumonitis. * Venous Doppler: Positive for DVT in right popliteal vein * Laboratory data: WBC 7.2. Hemoglobin 13.0. Platelet count 283. Sodium 138. Potassium 3.9. BUN 11. Creatinine 0.85 * Current home cardiac medications include none * Most recent echocardiogram obtained in April 2021 revealed an ejection fraction 55-60%, trace to mild MR, mild pulmonary hypertension * Cardiac catheterization history: April 2021 revealing 20% ostial left main, aneurysm and mid left main, 40% proximal LAD, dominant RCA and circumflex without significant disease, normal filling pressures. No gradient. 06/16/2023 Patient examined this morning at the bedside. Patient denies chest pain or pressure. She denies shortness of breath. Echocardiogram completed revealing normal LV systolic function, mild MR, mild TR. She has been transitioned to oral anticoagulation. PHYSICAL EXAM: VITAL SIGNS: Reviewed. GENERAL: Well-developed in no acute distress. HEENT: Head is normocephalic. Pupils are equal, round. Sclerae anicteric. Mucous membranes of the mouth are moist. Neck supple. No JVD or thyromegaly LUNGS: Respirations even and unlabored. Lungs essentially clear to auscultation bilaterally. HEART: Regular rate and rhythm. S1 and S2 heard. ABDOMEN: Soft. Nondistended. Nontender. EXTREMITIES: Normal range of motion. No clubbing or cyanosis. Peripheral pulses intact. No lower extremity edema NEUROLOGIC: Awake and alert. Oriented x 3. ASSESSMENT: Chest pain, atypical, troponin negative 3 Right lower extremity DVT Non-obstructive coronary artery disease, per cardiac catheterization in 2020 Osteoarthritis Morbid obesity: BMI 54.0 PLAN: Continue current cardiac medications Continue oral anticoagulation with Eliquis Patient is stable from a cardiac standpoint with no further inpatient recommendations We will sign off. Please reconsult if needed. Nurse practitioner note has been reviewed by physician. Signing provider agrees with the documented findings, assessment, and plan of care. Objective - Vital Signs Vital signs: Vital Signs Temp 97.5 F L 06/16/23 07:00 Pulse 95 06/16/23 07:00 Resp 16 06/16/23 07:00 BP 156/82 06/16/23 07:00 Pulse Ox 97 06/16/23 08:39 FiO2 21 06/16/23 08:39 Intake & Output 06/15/23 06/16/23 06/16/23 18:59 06:59 18:59 Output Total 250 Balance -250 Output: Urine 250 Other: Voiding Method Bedpan External Catheter # Voids 1 1 - Labs CBC & Chem 7: 06/15/23 01:53 06/15/23 10:14 Labs: Abnormal Lab Results - Last 24 Hours (Table) 06/15/23 06/15/23 Range/Units 10:14 10:14 APTT 82.0 H (22.0-30.0) sec Glucose 135 H (74-99) mg/dL Calcium 10.6 H (8.4-10.2) mg/dL
[2023-06-16] MEDS: Apixaban Initiation Dose--VTE 5 MG TAB PO SCH ×2 (11:23→20:45)
[2023-06-16] MEDS: DONEPEZIL 10 MG TAB PO SCH (20:45)
--- NOTE | 2023-06-16 20:52 | P.PN ---
Subjective Progress Note Date: 06/16/23 Patient is a 82-year-old female with a known history of osteoarthritis, hypothyroidism and history of prior pain clinic procedures presents to ER with complaints of intermittent chest pain since yesterday. Patient follows with Dr. patino as an outpatient. Patient states that she woke up last night with right lower extremity pain and is also complaining of increased swelling of the right leg. Denies any fever or chills. No redness. No tingling or numbness sensation in the legs. Patient has been symptoms since yesterday. No nausea vomiting abdominal pain or diarrhea. Denies any recent illnesses. Chest x-ray showed diffuse interstitial pattern correlate for interstitial pneumonitis. EKG showed sinus rhythm Duplex scan showed positive for acute DVT right popliteal vein. Laboratory showed WBC 7.2 hemoglobin 13.0 and platelets 283 Sodium 138 potassium 3.9 chloride 110 bicarb is 19 BUN 11 creatinine 0.85 Calcium 10.7 magnesium 2.1 Troponin x3 negative and proBNP is 186. 2D echocardiogram on 05/06/2021 showed left ventricular size is normal and borderline concentric left ventricular hypertrophy. Ejection fraction 55 to 60% and LA is moderately dilated. Aneurysmal interatrial septum. 06/15/2023 Patient seen and evaluated in follow-up today reporting severe intense pain in the right lower extremity. Cardiology following an echo was ordered and pending. Patient denies any further chest pain at this time. Patient reports significant swelling and difficulty with ambulation and reports is unable to walk at this time. Patient continued on IV heparin which is being transitioned to eliquis for DVT. Will have physical therapy evaluate patient also consult case management is patient may require ECF due to significant lower extremity pain and inability to walk. Patient was ambulatory and occasionally used a walker prior to this sudden acute onset of pain due to the DVT. Will await PT/OT therapy evaluation. Patient is afebrile denies chest pain or shortness of breath. No reported nausea or vomiting and patient is tolerating diet. 06/16/2023 Patient is seen and evaluated in follow-up this morning currently sitting up in the chair. Patient reports some improvement in swelling of the right lower extremity and has been transitioned from IV heparin to eliquis. Patient was able to work with physical therapy and continued with significant weakness and difficulty with ambulation and is agreeable to rehab. Case management following an patient has been accepted at [facility] with possible discharge planning in the next 24 hours. Review of systems: Constitutional: No reports of fatigue, fever, or chills Cardiovascular: No reports of chest pain or palpitations Respiratory: No reports of shortness of breath or cough GI: No reports of nausea, vomiting, or diarrhea : No reports of dysuria or retention Neurovascular: reports of significant weakness of the right lower extremity and swelling reporting some improvement in swelling and pain more controlled today All medications have been reviewed Physical exam: Gen: This is a 82-year-old female who is awake, alert and oriented 3, well- developed, well-nourished HEENT: Head is atraumatic, normocephalic. Pupils equal, round. Sclerae is anicteric. NECK: Supple. No JVD. No lymphadenopathy. No thyromegaly. LUNGS: Clear to auscultation. No wheezes or rhonchi. No intercostal retractions. HEART: Regular rate and rhythm. No murmur. ABDOMEN: Soft. Bowel sounds are present. No masses. No tenderness. EXTREMITIES: No pedal edema. No calf tenderness. Right lower extremity with some swelling is showing signs of improvement and less sensitive to palpation although does continue with some pain on palpation NEUROLOGICAL: Patient is awake, alert and oriented x3. Cranial nerves 2 through 12 are grossly intact. Diffusely weak Assessment: Acute right lower extremity DVT. Ultrasound showed right popliteal vein acute DVT. Right lower extremity pain and swelling secondary to DVT Intermittent chest pain, ruled out ACS Rheumatoid arthritis with joint deformities. Hypothyroidism History of renal stones History of left femur fracture and multiple surgeries and pain during procedures. History of T12 compression fracture Prior history of urinary tract infection Dementia DVT prophylaxis GI prophylaxis Full code Plan: Patient has been seen and evaluated by cardiology for chest pain and ruled out ACS. Cardiology has cleared the patient for discharge and has been transitioned from IV heparin to oral eliquis for acute right lower extremity DVT. Patient reports her pain is better controlled today and noted some improvements in swelling of the right lower extremity Patient worked with physical therapy today and doing better and is agreeable to rehab and has been accepted at [facility] Social work following and arranging for discharge planning. Patient will require more than 3 night hospitalization to go to [facility], [facility] due to Medicare guidelines. Given patient's continued significant symptoms with continued severe pain and inability to ambulate patient will be made inpatient and will continue to monitor closely Patient will discharge to [facility] on the [place] in 24 hours The impression and plan of care has been dictated by Melba Allen, Nurse Practitioner as directed. Dr. Carlos MD I have performed a history and examination and MDM of this patient, discussed the same with the dictator, and agree with the dictator's assessment and plan as written ,documented as a scribe. Based on total visit time, I have performed more than 50% of the visit. Objective - Vital Signs Vital signs: Vital Signs Temp 97.5 F L 06/16/23 07:00 Pulse 95 06/16/23 07:00 Resp 16 06/16/23 07:00 BP 156/82 06/16/23 07:00 Pulse Ox 97 06/16/23 08:39 FiO2 21 06/16/23 08:39 Intake & Output 06/15/23 06/16/23 06/16/23 18:59 06:59 18:59 Output Total 250 Balance -250 Output: Urine 250 Other: Voiding Method Bedpan External Catheter # Voids 1 1 - Labs CBC & Chem 7: 06/15/23 01:53 06/15/23 10:14 Labs: Abnormal Lab Results - Last 24 Hours (Table) 06/15/23 06/15/23 Range/Units 10:14 10:14 APTT 82.0 H (22.0-30.0) sec Glucose 135 H (74-99) mg/dL Calcium 10.6 H (8.4-10.2) mg/dL
[2023-06-17] MEDS: HYDROcodone/APAP 5-325MG 1 EACH TAB PO PRN ×2 (02:40→14:34)
[2023-06-17 07:36] VITALS: RESP 16
[2023-06-17] MEDS: Apixaban Initiation Dose--VTE 5 MG TAB PO SCH (08:56)
--- NOTE | 2023-06-17 13:25 | P.DS ---
Providers Date of admission: 06/15/23 15:48 Expected date of discharge: 06/17/23 Attending physician: Tyler Clark MD Primary care physician: Keron Littlejohn Hospital Course: Final diagnosis Acute right lower extremity DVT. Ultrasound showed right popliteal vein acute DVT. Right lower extremity pain and swelling secondary to DVT Intermittent chest pain, ruled out ACS Rheumatoid arthritis with joint deformities. Hypothyroidism History of renal stones History of left femur fracture and multiple surgeries and pain during procedures. History of T12 compression fracture Prior history of urinary tract infection Dementia DVT prophylaxis GI prophylaxis Full code Discharge disposition Patient is being discharged in a stable condition with guarded prognosis to [facility] on the [place]. Patient will follow-up with Dr. Littlejohn in the outpatient setting upon discharge. Patient is to continue with Eliquis 10 mg twice daily for the next 6 days and then titrate the dose to 5 mg twice daily thereafter. Patient is instructed to follow-up with cardiology outpatient as scheduled. Total time taken is greater than 35 minutes. Hospital course This is a 82-year-old female who was recently admitted with severe right lower extremity pain found to have a DVT at the popliteal region and was on IV heparin. Patient was also evaluated by cardiology as patient was having some intermittent chest pain which has resolved and ACS was ruled out. Cardiology has signed off recommend an outpatient follow-up. Patient is to continue on Eliquis 10 mg twice daily for the next 6 days and then titrate the dose down to 5 mg twice daily thereafter. Patient also instructed to elevate lower extremities while at rest. Patient continues with significant weakness and difficulty in ambulation was evaluated by PT/OT therapy recommending rehab and patient is agreeable. Patient has been accepted at [facility] and will be going today. Patient to follow-up with her primary care provider Dr. Littlejohn on discharge. Please refer to cardiology notes for further HPI. Currently patient denies any chest pain, shortness of breath, or palpitations. Patient is afebrile denies nausea or vomiting and tolerating diet. Patient continues to report some right lower extremity pain and swelling although is somewhat improved from admission. Patient will be discharged to [facility] today. Guarded prognosis. Physical exam: Gen: This is a 82-year-old female who is awake, alert and oriented 3, well- developed, well-nourished HEENT: Head is atraumatic, normocephalic. Pupils equal, round. Sclerae is anicteric. NECK: Supple. No JVD. No lymphadenopathy. No thyromegaly. LUNGS: Clear to auscultation. No wheezes or rhonchi. No intercostal retractions. HEART: Regular rate and rhythm. No murmur. ABDOMEN: Soft. Bowel sounds are present. No masses. No tenderness. EXTREMITIES: No pedal edema. No calf tenderness. Right lower extremity with some swelling and severe sensitivity on palpation NEUROLOGICAL: Patient is awake, alert and oriented x3. Cranial nerves 2 through 12 are grossly intact. Diffusely weak Please refer to medication reconciliation sheet for a list of medications. The impression and plan of care has been dictated by Melba Allen, Nurse Practitioner as directed. Dr. Carlos MD I have performed a history and examination and MDM of this patient, discussed the same with the dictator, and agree with the dictator's assessment and plan as written ,documented as a scribe. Based on total visit time, I have performed more than 50% of the visit. Patient Condition at Discharge: Stable Plan - Discharge Summary Discharge Rx Participant: No New Discharge Prescriptions: New Apixaban Initiation Dose--VTE [Eliquis Initiation Dosing for VTE Treatment] See Taper PO BID #74 tab Continue predniSONE 10 mg PO PC-BRKFST Donepezil [Aricept] 10 mg PO HS Changed HYDROcodone/APAP 5-325MG [[place] 5-325] 1 tab PO Q6HR PRN #4 tab PRN Reason: Moderate Pain Discharge Medication List Donepezil [Aricept] 10 mg PO HS 06/14/23 [History] predniSONE 10 mg PO PC-BRKFST 06/14/23 [History] Apixaban Initiation Dose--VTE [Eliquis Initiation Dosing for VTE Treatment] See Taper PO BID #74 tab 06/15/23 [Rx] HYDROcodone/APAP 5-325MG [[place] 5-325] 1 tab PO Q6HR PRN #4 tab 06/17/23 [Rx] Follow up Appointment(s)/Referral(s): Rdaha Jung MD [STAFF PHYSICIAN] - 1 Week Keron Littlejohn MD [Primary Care Provider] - 1-2 days Activity/Diet/Wound Care/Special Instructions: Patient is going to [facility] as tolerated continue on eliquis 10 mg twice daily for the next 6 days, then decrease the dose to 5 mg twice daily thereafter Continue to elevate lower extremity swelling rest Follow-up with primary care provider on discharge Follow-up cardiology outpatient Continue heart healthy diet Discharge Disposition: TRANSFER TO SNF/ECF
[2023-06-17 14:19] VITALS: BP 123/66; PULSE 103; TEMP 98.2
== END 2023-06-17 15:13 | DRG 300 ==
LOC: EC 08:47 → 6NMEDSUR 10:43 → 1SOBS 20:26 → 6NMEDSUR 06-15 14:55 → OBSVTOIN 06-15 15:48
PROVIDERS: ADMIT Internal Medicine; ATTEND Internal Medicine
DX: I82.431 Acute embolism and thrombosis of right popliteal vein (principal); I25.110 Atherosclerotic heart disease of native coronary artery with unstable angina pectoris; Z68.43 Body mass index [BMI] 50.0-59.9, adult; M06.9 Rheumatoid arthritis, unspecified; F03.90 Unspecified dementia, unspecified severity, without behavioral disturbance, psychotic disturbance, mood disturbance, and anxiety; E66.01 Morbid (severe) obesity due to excess calories; E03.9 Hypothyroidism, unspecified; Z79.01 Long term (current) use of anticoagulants; Z79.890 Hormone replacement therapy; Z87.440 Personal history of urinary (tract) infections; Z87.442 Personal history of urinary calculi; Z88.0 Allergy status to penicillin
CPT/HCPCS: 36415; 71046; 80048; 80053; 83735; 83880; 84484; 85025; 85610; 85730; 93005; 93306; 94760; 96374; 96375; 99285